=== PATIENT | male | born 1950 | race Caucasian/White ===

== ENCOUNTER 2018-07-05 12:25 | Emergency (ER) | payer MEDICARE ==
[~2018-07-05] VITALS: Ht 182.9 cm; Wt 88.5 kg
--- NOTE | 2018-07-05 12:59 | ED Back Pain ---
General Chief Complaint: Back Problems Stated Complaint: BACK PAIN Nursing Triage Note: HX OF BACK SX 4 YEARS AGO, CHRONIC BACK PAIN. STATES HAS BEEN TAKING IBUPROFEN WITH NO RELIEF, NOT TAKEN PRESCRIBED OXYCODONE FOR APPROX 10 DAYS, PAIN BETTER WHEN LYING DOWN AND INCREASED WHEN WALKING OR MOVING AROUND. LAST SEEN BACK DR APPROX ONE MONTH AGO. Nursing Sepsis Screen: No Definite Risk Source of Information: Patient Exam Limitations: No Limitations History of Present Illness Date Seen by Provider: Jul 05, 2018 Time Seen by Provider: 12:47 Initial Comments Patient is a 68-year-old male who presents to the emergency room with complaints of chronic back pain. He takes oxycodone for his pain that he is prescribed at [facility] and is under a pain contract. He reports moving up here from [place] recently and he has lost his naproxen that he takes along with his pain medication. Denies loss of bowel or bladder, or saddle paresthesia. Location: Lumbar Spine Timing/Duration: Other (chronic) Severity: Mild Pain/Injury Location: Back Associated Symptoms: No loss of bladder control, No loss of bowel control Allergies and Home Medications Allergies Coded Allergies: No Known Allergies (Verified Allergy, Unknown, 01/22/07) Home Medications Cyclobenzaprine HCl 10 Mg Tablet, 10 MG PO Q8H Prescribed by: NURA HOLLIDAY on 07/05/18 1320 Naproxen 500 Mg Tablet, 500 MG PO DAILY Prescribed by: NURA HOLLIDAY on 07/05/18 1320 Patient Home Medication List Home Medication List Reviewed: Yes Review of Systems Constitutional: see HPI; No chills, No fever Musculoskeletal: see HPI, back pain All Other Systems Reviewed Negative Unless Noted: Yes Past Snbydia-Psgqgw-Cwiexj Hx Past Med/Social Hx: Reviewed Nursing Past Med/Soc Hx Patient Social History Alcohol Use: Denies Use Recreational Drug Use: No Smoking Status: Never a Smoker Recent Foreign Travel: No Contact w/Someone Who Travel: No Recent Infectious Disease Expo: No Recent Hopitalizations: No Immunizations Up To Date Tetanus Booster (TDap): Unknown Seasonal Allergies Seasonal Allergies: No Past Medical History Surgeries: Yes Appendectomy, Gallbladder, Orthopedic Respiratory: No Cardiac: Yes (HEART CATH WITH NO INTERVENTIONS) Hypertension Reproductive Disorders: No Genitourinary: No Gastrointestinal: No Musculoskeletal: No Endocrine: Yes Diabetes, Non-Insulin dep HEENT: No Cancer: No Psychosocial: No Integumentary: No Blood Disorders: No Family Medical History Reviewed Nursing Family Hx Physical Exam Vital Signs Vital Signs - First Documented 07/05/18 07/05/18 12:30 13:33 Temp 97.6 Pulse 72 Resp 19 B/P (MAP) 159/75 (103) Pulse Ox 100 O2 Delivery Room Air Capillary Refill : Less Than 3 Seconds Height, Weight, BMI Height: 6'0" Weight: 195lbs. oz. 88.659188in; BMI Method:Stated General Appearance: No Apparent Distress, WD/WN Cardiovascular: Regular Rate, Rhythm, No Edema, No Gallop, No JVD, No Murmur, Normal Peripheral Pulses Respiratory: Chest Non Tender, Lungs Clear, Normal Breath Sounds, No Accessory Muscle Use, No Respiratory Distress, Accessory Muscle Use Back: Normal Inspection, Vertebral Tenderness (lumbar vertebral tenderness) Neurologic/Psychiatric: Alert, Oriented x3, No Motor/Sensory Deficits Skin: Normal Color, Warm/Dry Progress/Results/Core Measures Results/Orders My Orders Orders - MGNURA Ketorolac Injection (Toradol Injection) (07/05/18 13:00) Orphenadrine Injection (Norflex Injectio (07/05/18 13:00) Medications Given in ED Vital Signs/I&O 07/05/18 07/05/18 12:30 13:33 Temp 97.6 97.6 Pulse 72 72 Resp 19 19 B/P (MAP) 159/75 (103) 115/80 (103) Pulse Ox 100 O2 Delivery Room Air Blood Pressure Mean: 103 Progress Progress Note : Time: 13:00 Progress Note Patient seen and evaluated the patient. He is feeling much better after the administration of Toradol and Norflex. I will be prescribing him his naproxen. He agrees with plan to discharge. He is instructed to follow up with [facility] within 1 week. Return precautions were given. Departure Impression Primary Impression: Chronic back pain Disposition: HOME, SELF-CARE Condition: Stable/Unchanged Departure-Patient Inst. Decision time for Depature: 13:18 Referrals: NO,LOCAL PHYSICIAN (PCP) Primary Care Physician Patient Instructions: MANAGING YOUR CHRONIC PAIN, Low Back Pain (DC) Add. Discharge Instructions: Continue your home medications as previously prescribed. Follow-up with Dr. Pastor within 1 week for recheck. Return back to the emergency room for any worsening symptoms or concerns as needed. All discharge instructions reviewed with patient and/or family. Voiced understanding. Scripts Cyclobenzaprine HCl (Cyclobenzaprine HCl) 10 Mg Tablet 10 MG PO Q8H, #14 TAB Prov: NURA HOLLIDAY 07/05/18 Naproxen (Naprosyn) 500 Mg Tablet 500 MG PO DAILY, #10 TAB Prov: NURA HOLLIDAY 07/05/18 NURA HOLLIDAY Jul 05, 2018 12:59
[2018-07-05] MEDS: KETOROLAC 60 MG/2 ML VIAL IM ONE (13:02)
[2018-07-05] MEDS: ORPHENADRINE 60 MG/2 ML (NORFLEX) AMP IM ONE (13:02)
[2018-07-05] MEDS ORDERED: NAPR-1071 PO (13:20)
[2018-07-05] MEDS ORDERED: CYCL10TA9 PO (13:20)
[2018-07-05 13:33] VITALS: BP 115/80
== END 2018-07-05 13:35 | disposition home or self-care (01) ==
LOC: EDUNIT# 12:25 → ER 12:26
DX: M54.5 Low back pain (principal); G89.29 Other chronic pain; E11.9 Type 2 diabetes mellitus without complications; I10 Essential (primary) hypertension; Z90.89 Acquired absence of other organs
CPT/HCPCS: 96372; 99284

== ENCOUNTER 2018-12-25 13:20 | Emergency (ER) | payer MEDICARE ==
[~2018-12-25] VITALS: Ht 182.9 cm; Wt 94.3 kg
[~2018-12-25 13:20] MED LIST: CYCL10TA9 PO; NAPR-1071 PO
--- OUTSIDE RECORDS SUMMARY | 2018-12-25 13:26 | XMS REPORT ---
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 Active 47015301 Problem Benign prostatic hyperplasia with lower urinary tract symptoms N40.1 Active 312267586 Problem Essential hypertension I10 Active 54924101 Problem Lumbar radiculopathy M54.16 Active 917378812 Problem Prediabetes R73.03 Active 103355497 Problem Hesitancy of micturition R39.11 Active 7476373 ALLERGIES No Information ENCOUNTERS Encounter Location Date Diagnosis [place] [id number] [address] [id number] [place] [address] Aug, [place] [id number] [place] [address] 81668- [phone] Aug, [facility] [id number] [place] [address] 03873- 3128 Aug, [facility] [id number] [place] [address] 03682- 5009 Aug, [facility] [id number] [place] [address] 69591- 7555 14 Jul, 2018 Cervical paraspinal muscle spasm M62.838 [facility] [id number] [place] [address] 72217- 9346 04 Jul, 2018 Lumbar radiculopathy M54.16 [place] [id number] [place] [address] 09345- 6663 15 Jun, 2018 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 [place] [address] [facility] [id number] [address] 10 Jun, 2018 Lumbar radiculopathy M54.16 [place] [address] [place] [id number] [address] 10 Jun, 2018 Lumbar radiculopathy M54.16 ; Essential hypertension I10 ; Prediabetes R73.03 ; Gastroesophageal reflux disease, esophagitis presence not specified K21.9 ; Benign prostatic hyperplasia with lower urinary tract symptoms N40.1 and Hesitancy of micturition R39.11 [place] [address] [facility] [id number] [address] 13 May, 2018 Lumbar radiculopathy, chronic M54.16 IMMUNIZATIONS No Known Immunizations SOCIAL HISTORY Never Assessed REASON FOR VISIT Controlled Med Refill PLAN OF CARE VITAL SIGNS MEDICATIONS Unknown Medications RESULTS No Results PROCEDURES No Known procedures INSTRUCTIONS MEDICATIONS ADMINISTERED No Known Medications MEDICAL (GENERAL) HISTORY Type Description Date Medical History back surgery Surgical History back surgery 2000 Hospitalization History back surgery 2000
--- OUTSIDE RECORDS SUMMARY | 2018-12-25 13:26 | XMS REPORT ---
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 Active 93491399 Problem Benign prostatic hyperplasia with lower urinary tract symptoms N40.1 Active 299294910 Problem Essential hypertension I10 Active 66196998 Problem Lumbar radiculopathy M54.16 Active 386749601 Problem Prediabetes R73.03 Active 954558634 Problem Hesitancy of micturition R39.11 Active 8490696 ALLERGIES No Information ENCOUNTERS Encounter Location Date Diagnosis [place] [address] [place] [address] [id number] [place] [address]- 4097 Aug, [place] [id number] [place] [address] 60989- 1264 Aug, [facility] [id number] [place] [address] 89626- 7631 Aug, [facility] [id number] [place] [address] 24171- 4040 Aug, [facility] [id number] [place] [address] 90748- 1999 14 Jul, 2018 Cervical paraspinal muscle spasm M62.838 [facility] [id number] [place] [address] 19633- 0406 04 Jul, 2018 Lumbar radiculopathy M54.16 [place] [address] [place] [address] [id number] [place] [address] 96504- 6642 15 Jun, 2018 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 [place] [address] [facility] [id number] [address] 10 Jun, 2018 Lumbar radiculopathy M54.16 [place] [address] [id number] [address] 10 Jun, 2018 Lumbar radiculopathy M54.16 ; Essential hypertension I10 ; Prediabetes R73.03 ; Gastroesophageal reflux disease, esophagitis presence not specified K21.9 ; Benign prostatic hyperplasia with lower urinary tract symptoms N40.1 and Hesitancy of micturition R39.11 [place] [address] [facility] [id number], [place] [address] 13 May, 2018 Lumbar radiculopathy, chronic M54.16 IMMUNIZATIONS No Known Immunizations SOCIAL HISTORY Never Assessed REASON FOR VISIT Pt Medications PLAN OF CARE VITAL SIGNS MEDICATIONS Unknown Medications RESULTS No Results PROCEDURES No Known procedures INSTRUCTIONS MEDICATIONS ADMINISTERED No Known Medications MEDICAL (GENERAL) HISTORY Type Description Date Medical History back surgery Surgical History back surgery 2000 Hospitalization History back surgery 2000
--- OUTSIDE RECORDS SUMMARY | 2018-12-25 13:26 | XMS REPORT ---
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 Active 39378958 Problem Benign prostatic hyperplasia with lower urinary tract symptoms N40.1 Active 809601815 Problem Essential hypertension I10 Active 46166960 Problem Lumbar radiculopathy M54.16 Active 413835830 Problem Prediabetes R73.03 Active 184003801 Problem Hesitancy of micturition R39.11 Active 4410743 ALLERGIES No Known Allergies ENCOUNTERS Encounter Location Date Diagnosis [place] [address] [place] [address] 52038- 96[address] 14 Jul, 2018 Cervical paraspinal muscle spasm M62.838 [place] [address] [place] [address] 87033- 8245 04 Jul, 2018 Lumbar radiculopathy M54.16 [place] [address] [place] [address] 05892- 9463 15 Jun, 2018 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 [facility] [address] [address] 10 Jun, 2018 Lumbar radiculopathy M54.16 [place] [address] [place] [address] 42013- 9961 10 Jun, 2018 Lumbar radiculopathy M54.16 ; Essential hypertension I10 ; Prediabetes R73.03 ; Gastroesophageal reflux disease, esophagitis presence not specified K21.9 ; Benign prostatic hyperplasia with lower urinary tract symptoms N40.1 and Hesitancy of micturition R39.11 [facility] [address] [facility] [id number] [place] [address] May, Lumbar radiculopathy, chronic M54.16 IMMUNIZATIONS No Known Immunizations SOCIAL HISTORY Never Assessed REASON FOR VISIT foot pain Pt c/o Rt foot pain, feels he may have gout [facility] PLAN OF CARE VITAL SIGNS Weight 209.8 lbs 2018-06-20 Temperature 98.4 degrees Fahrenheit 2018-06-20 Heart Rate 82 bpm 2018-06-20 Respiratory Rate 18 2018-06-20 Blood pressure systolic 146 mmHg 2018-06-20 Blood pressure diastolic 84 mmHg 2018-06-20 MEDICATIONS Medication Instructions Dosage Frequency Start Date End Date Duration Status Allopurinol 300 MG Orally Once a day 1 tablet 24h Jun, Sep, 30 day(s) Active Tamsulosin HCl 0.4 MG Orally Once a day 1 capsule 24h Active Lyrica 200 mg Orally Three times a day 1 capsule 8h Active Pantoprazole Sodium 40 MG Orally Once a day 1 tablet 24h Active Lisinopril-Hydrochlorothiazide 20-12.5 MG Orally Once a day 1 tablet 24h Active Oxycodone HCl 15 mg Orally every 6 hrs 1 tablet 6h Jun, Active Tizanidine HCl 4 MG Orally Three times a day 1 tablet as needed 8h Active PredniSONE 20 mg Orally Once a day 2 tablets 24h Jun, Jun, 05 days Active Sucralfate 1 GM Orally Twice a day 1 tablet at bedtime on an empty stomach before meals 12h Active Metformin HCl 500 MG Orally Once a day 1 tablet with a meal 24h Active RESULTS No Results PROCEDURES No Known procedures INSTRUCTIONS MEDICATIONS ADMINISTERED No Known Medications MEDICAL (GENERAL) HISTORY Type Description Date Medical History back surgery Surgical History back surgery 2000 Hospitalization History back surgery 2000
--- OUTSIDE RECORDS SUMMARY | 2018-12-25 13:26 | XMS REPORT ---
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 Active 50169140 Problem Benign prostatic hyperplasia with lower urinary tract symptoms N40.1 Active 422278114 Problem Essential hypertension I10 Active 83726562 Problem Lumbar radiculopathy M54.16 Active 994554367 Problem Prediabetes R73.03 Active 197515891 Problem Hesitancy of micturition R39.11 Active 9889142 ALLERGIES No Information ENCOUNTERS Encounter Location Date Diagnosis [place] [address] [place] [address]2005- 29[address] 14 Jul, 2018 Cervical paraspinal muscle spasm M62.838 [place] [address] [place] [address] [id number] [place] [address] 64532- 3092 04 Jul, 2018 Lumbar radiculopathy M54.16 [place] [address] [place] [address] 07775- 8750 15 Jun, 2018 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 [facility] [address] [place] [address] 36947- 3862 10 Jun, 2018 Lumbar radiculopathy M54.16 [place] [address] [place] [address] 25301- 0163 10 Jun, 2018 Lumbar radiculopathy M54.16 ; Essential hypertension I10 ; Prediabetes R73.03 ; Gastroesophageal reflux disease, esophagitis presence not specified K21.9 ; Benign prostatic hyperplasia with lower urinary tract symptoms N40.1 and Hesitancy of micturition R39.11 [facility] [address] [facility] [id number] [place] [address] May, Lumbar radiculopathy, chronic M54.16 IMMUNIZATIONS No Known Immunizations SOCIAL HISTORY Never Assessed REASON FOR VISIT Controlled Med Refill 07/13 PLAN OF CARE VITAL SIGNS MEDICATIONS Medication Instructions Dosage Frequency Start Date End Date Duration Status Oxycodone HCl 15 mg Orally every 6 hrs 1 tablet 6h Jul, Active RESULTS No Results PROCEDURES No Known procedures INSTRUCTIONS MEDICATIONS ADMINISTERED No Known Medications MEDICAL (GENERAL) HISTORY Type Description Date Medical History back surgery Surgical History back surgery 2000 Hospitalization History back surgery 2000
--- OUTSIDE RECORDS SUMMARY | 2018-12-25 13:26 | XMS REPORT ---
Author Author TARIQ ROCHA [facility] Address [address] [place], [place] [id number] Care Team Providers Care Change Management Director Name Role Phone TARIQ ROCHA PCP TARIQ ROCHA PreferredProvider Allergies and Adverse Reactions Name Reaction Notes No known allergies Plan of Treatment Not available. Medications Active Name Start Date Estimated Completion Date SIG Comments Carafate 1 gram oral tablet take 1 tablet (1 gram) by oral route 4 times per day on an empty stomach 1 hour before meals and at bedtime tamsulosin 0.4 mg oral capsule take 2 capsules (0.8 mg) by oral route once daily 1/2 hour following the same meal each day for 30 days allopurinol 300 mg oral tablet take 1 tablet (300 mg) by oral route once daily for 30 days pantoprazole 40 mg oral tablet,delayed release (DR/EC) take 1 tablet ( 40 mg) by oral route once daily for 30 days sucralfate 1 gram oral tablet 11/27/2018 05/26/2019 One tablet daily lisinopril-hydrochlorothiazide 20-12.5 mg oral tablet 11/28/2018 take 1 tablet by oral route once daily Lyrica 200 mg oral capsule 11/29/2018 05/28/2019 take 1 capsule (200 mg) by oral route 2 times per day for 30 days citalopram 20 mg oral tablet 12/03/2018 03/03/2019 take 1 tablet (20 mg) by oral route once daily for 30 days Percocet 10-325 mg oral tablet 12/03/2018 01/02/2019 take 1 tablet by oral route every 6 hours as needed for 30 days Valtrex 1 gram oral tablet 12/03/2018 12/13/2018 take 1 tablet (1,000 mg) by oral route 3 times per day for 10 days tizanidine 4 mg oral tablet 12/04/2018 take 1 tablet (4 mg) by oral route every 8 hours as needed metformin 500 mg oral tablet 12/04/2018 01/03/2019 take 1 tablet (500 mg) by oral route 2 times per day with morning and evening meals for 30 days Name Start Date Expiration Date SIG Comments oxycodone 15 mg oral tablet 11/28/2018 12/08/2018 take 1 tablet (15 mg) by oral route every 6 hours for 10 days Problem List Description Status Onset Chronic midline low back pain without sciatica Active 11/19/2018 Other chronic pain Active 11/19/2018 Type 2 diabetes mellitus with diabetic polyneuropathy, without long-term current use of insulin Active 11/19/2018 Essential hypertension Active 11/19/2018 Pain management Active 11/19/2018 Mild episode of recurrent major depressive disorder Active 12/13/2018 Diverticulitis Active Vital Signs Date Time BP-Sys(mm[Hg] BP-Josselin(mm[Hg]) HR(bpm) RR(rpm) Temp WT HT HC BMI BSA BMI Percentile O2 Sat(%) 12/03/2018 1:45:00 PM 140 mmHg 82 mmHg 84 bpm 16 rpm 99.9 F 5.625 lbs 70 in 0.8071 kg/m 0.355 m 98 % 11/07/2018 10:00:00 PM 146 mmHg 86 mmHg 78 bpm 16 rpm 98.6 F 212 lbs 70 in 30.42 kg/m2 2.18 m2 98 % Social History Name Description Comments Uses seatbelts Alcohol Unknown Tobacco Unknown if ever smoked 11/16/2018 - History of Procedures Not available. Results Summary Not available. History Of Immunizations Not available. History of Past Illness Name Date of Onset Comments Hypertension Diabetes arthritis Anxiety Asthma Impotence indigestion Diverticulitis Chronic pain Chronic midline low back pain without sciatica 11/19/2018 Other chronic pain 11/19/2018 Type 2 diabetes mellitus with diabetic polyneuropathy, without long-term current use of insulin 11/19/2018 Essential hypertension 11/19/2018 Pain management 11/19/2018 Mild episode of recurrent major depressive disorder 12/13/2018 Low back pain Nov 16 2018 12:59PM Other chronic pain Nov 16 2018 12:59PM Other chronic pain Nov 16 2018 12:59PM Type 2 diabetes mellitus with diabetic polyneuropathy Nov 16 2018 12:59PM Essential hypertension Nov 16 2018 12:59PM GERD without esophagitis Nov 16 2018 12:59PM Back spasm Nov 16 2018 12:59PM Pain management contract discussed Nov 16 2018 12:59PM Pain management Nov 16 2018 12:59PM History of gout Nov 16 2018 12:59PM Moderate Chronic Recurrent Diverticulitis Dec 03 2018 1:45PM Abnormal CT of the abdomen Dec 03 2018 1:45PM Herpes zoster without complication Dec 03 2018 1:45PM Pain management Dec 03 2018 1:45PM Encounter for examination following treatment at hospital Dec 03 2018 1:45PM Mild episode of recurrent major depressive disorder Dec 03 2018 1:45PM Payers Insurance Name Company Name Plan Name Plan Number Policy Number Policy Group Number Start Date [employer] Ppo [id number] N/A History of Encounters Visit Date Visit Type Provider 12/03/2018 Office visit TARIQ HANNA 11/08/2018 Office visit TARIQ HANNA
--- OUTSIDE RECORDS SUMMARY | 2018-12-25 13:26 | XMS REPORT ---
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 Active 67453585 Problem Benign prostatic hyperplasia with lower urinary tract symptoms N40.1 Active 626845337 Problem Essential hypertension I10 Active 80070041 Problem Lumbar radiculopathy M54.16 Active 230650973 Problem Prediabetes R73.03 Active 116850529 Problem Hesitancy of micturition R39.11 Active 5024869 ALLERGIES No Information ENCOUNTERS Encounter Location Date Diagnosis [place] [id number] [place] [address] 67664- 6171 Aug, [place] [id number] [place] [address] 59074- 6746 Aug, [facility] [id number] [place] [address] 66523- 6244 Aug, [facility] [address] [id number] [place] [address] 49246- 4725 Aug, [facility] [id number] [place] [address] 93437- 5586 14 Jul, 2018 Cervical paraspinal muscle spasm M62.838 [facility] [id number] [place] [address] 58674- 7635 04 Jul, 2018 Lumbar radiculopathy M54.16 [place] [address] [id number] [place] [address] 30483- 5075 15 Jun, 2018 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 [place] [address] [facility] [id number] [address] 10 Jun, 2018 Lumbar radiculopathy M54.16 [place] [address] [place] [id number], [place] [address] 30[address] 10 Jun, 2018 Lumbar radiculopathy M54.16 ; Essential hypertension I10 ; Prediabetes R73.03 ; Gastroesophageal reflux disease, esophagitis presence not specified K21.9 ; Benign prostatic hyperplasia with lower urinary tract symptoms N40.1 and Hesitancy of micturition R39.11 [place] [address] [facility] [id number], [place] [address] 13 May, 2018 Lumbar radiculopathy, chronic M54.16 IMMUNIZATIONS No Known Immunizations SOCIAL HISTORY Never Assessed REASON FOR VISIT Lyrica PLAN OF CARE VITAL SIGNS MEDICATIONS Medication Instructions Dosage Frequency Start Date End Date Duration Status Lyrica 200 mg Orally Three times a day 1 capsule 8h 30 days Active RESULTS No Results PROCEDURES No Known procedures INSTRUCTIONS MEDICATIONS ADMINISTERED No Known Medications MEDICAL (GENERAL) HISTORY Type Description Date Medical History back surgery Surgical History back surgery 2000 Hospitalization History back surgery 2000
--- OUTSIDE RECORDS SUMMARY | 2018-12-25 13:26 | XMS REPORT ---
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 Active 57096620 Problem Benign prostatic hyperplasia with lower urinary tract symptoms N40.1 Active 727455758 Problem Essential hypertension I10 Active 53677409 Problem Lumbar radiculopathy M54.16 Active 845289576 Problem Prediabetes R73.03 Active 316367636 Problem Hesitancy of micturition R39.11 Active 6170485 ALLERGIES No Known Allergies ENCOUNTERS Encounter Location Date Diagnosis [place] [address] [address] 04 Jul, 2018 Lumbar radiculopathy M54.16 [place] [address] [place] [id number] [place] [address] 15 Jun, 2018 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 [place] [address] [place] [id number] [place] [address] 10 Jun, 2018 Lumbar radiculopathy M54.16 [place] [address] [place] [id number] [place] [address] 10 Jun, 2018 Lumbar radiculopathy M54.16 ; Essential hypertension I10 ; Prediabetes R73.03 ; Gastroesophageal reflux disease, esophagitis presence not specified K21.9 ; Benign prostatic hyperplasia with lower urinary tract symptoms N40.1 and Hesitancy of micturition R39.11 [place] [address] [place] [id number] [place] [address] May, Lumbar radiculopathy, chronic M54.16 IMMUNIZATIONS No Known Immunizations SOCIAL HISTORY Never Assessed REASON FOR VISIT Establish Care-SOM evans PLAN OF CARE Activity Details Follow Up 3 Months Reason: VITAL SIGNS Weight 207.9 lbs 2018-05-18 Temperature 98.7 degrees Fahrenheit 2018-05-18 Heart Rate 78 bpm 2018-05-18 Respiratory Rate 18 2018-05-18 Blood pressure systolic 142 mmHg 2018-05-18 Blood pressure diastolic 82 mmHg 2018-05-18 MEDICATIONS Medication Instructions Dosage Frequency Start Date End Date Duration Status Pantoprazole Sodium 40 MG Orally Once a day 1 tablet 24h Active Lisinopril-Hydrochlorothiazide 20-12.5 MG Orally Once a day 1 tablet 24h Active Tamsulosin HCl 0.4 MG Orally Once a day 1 capsule 24h Active Hydromorphone HCl 2 MG Orally every 4-6 hrs 1 tablet as needed Active Morphine Sulfate ER 15 mg Orally every 8 hrs 1 tablet 8h Active Lyrica 200 mg Orally Three times a day 1 capsule 8h Active Tizanidine HCl 4 MG Orally Three times a day 1 tablet as needed 8h Active Oxycodone HCl 15 mg Orally 3 times a day 1 tablet 8h May, Active RESULTS Name Result Date Reference Range URINE DRUG SCREEN (IN HOUSE) 2018-05-18 Lot # [id number] Exp date 07/2019 Control COCAINE negative AMPH negative MTD negative THC negative OPIATE negative BENZO negative PCP negative BAR negative OXY positive MAMP negative BUP negative MDMA negative TCA PROCEDURES Procedure Date Ordered Result Body Site DRUG TEST PRSMV DIR OPT OBS May 18, 2018 INSTRUCTIONS MEDICATIONS ADMINISTERED No Known Medications MEDICAL (GENERAL) HISTORY Type Description Date Medical History back surgery Surgical History back surgery 2000 Hospitalization History back surgery 2000
--- OUTSIDE RECORDS SUMMARY | 2018-12-25 13:26 | XMS REPORT ---
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 Active 10716522 Problem Benign prostatic hyperplasia with lower urinary tract symptoms N40.1 Active 782867459 Problem Essential hypertension I10 Active 74375979 Problem Lumbar radiculopathy M54.16 Active 974308164 Problem Prediabetes R73.03 Active 653584690 Problem Hesitancy of micturition R39.11 Active 7084063 ALLERGIES No Information ENCOUNTERS Encounter Location Date Diagnosis [place] [address] [place] [id number] [place] [address] Aug, [place] [address] [place] [id number] [place] [address]- 69[address] Aug, [facility] [address] [place] [id number] [place] [address] Aug, [facility] [address] [place] [id number] [place] [address] 17743- [address] Aug, [facility] [address] [place] [id number] [place] [address]23- 4056 14 Jul, 2018 Cervical paraspinal muscle spasm M62.838 [facility] [address] [place] [id number] [place] [address] 7[address]- 7[address] 04 Jul, 2018 Lumbar radiculopathy M54.16 [place] [address] [place] [id number] [place] [address]- [address] 15 Jun, 2018 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 [place] [address] [address] [facility] [id number] [address] 10 Jun, 2018 Lumbar radiculopathy M54.16 [place] [address] [address] [id number] [address] 10 Jun, 2018 Lumbar radiculopathy M54.16 ; Essential hypertension I10 ; Prediabetes R73.03 ; Gastroesophageal reflux disease, esophagitis presence not specified K21.9 ; Benign prostatic hyperplasia with lower urinary tract symptoms N40.1 and Hesitancy of micturition R39.11 [place] [address] [address] [facility] [id number] [address] 13 May, 2018 Lumbar radiculopathy, chronic M54.16 IMMUNIZATIONS No Known Immunizations SOCIAL HISTORY Never Assessed REASON FOR VISIT Refill request PLAN OF CARE VITAL SIGNS MEDICATIONS Medication Instructions Dosage Frequency Start Date End Date Duration Status Lisinopril-Hydrochlorothiazide 20-12.5 MG Orally Once a day 1 tablet 24h 30 days Active RESULTS No Results PROCEDURES No Known procedures INSTRUCTIONS MEDICATIONS ADMINISTERED No Known Medications MEDICAL (GENERAL) HISTORY Type Description Date Medical History back surgery Surgical History back surgery 2000 Hospitalization History back surgery 2000
--- OUTSIDE RECORDS SUMMARY | 2018-12-25 13:26 | XMS REPORT ---
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 Active 72377013 Problem Benign prostatic hyperplasia with lower urinary tract symptoms N40.1 Active 665436557 Problem Essential hypertension I10 Active 05366697 Problem Lumbar radiculopathy M54.16 Active 656046959 Problem Prediabetes R73.03 Active 422366728 Problem Hesitancy of micturition R39.11 Active 8348150 ALLERGIES No Information ENCOUNTERS Encounter Location Date Diagnosis [place] [address] [place] [id number] [place] [address] 14 Jul, 2018 Cervical paraspinal muscle spasm M62.838 [place] [address] [place] [id number] [place] [address] 8[address]- [address] 04 Jul, 2018 Lumbar radiculopathy M54.16 [place] [address] [place] [id number] [place] [address] 65471- [address] 15 Jun, 2018 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 [place] [address] [place] [id number] [place] [address]78- [address] 10 Jun, 2018 Lumbar radiculopathy M54.16 [place] [address] [place] [id number] [place] [address]54- [address] 10 Jun, 2018 Lumbar radiculopathy M54.16 ; Essential hypertension I10 ; Prediabetes R73.03 ; Gastroesophageal reflux disease, esophagitis presence not specified K21.9 ; Benign prostatic hyperplasia with lower urinary tract symptoms N40.1 and Hesitancy of micturition R39.11 [facility] [address] [facility] [id number] [place] [address] May, Lumbar radiculopathy, chronic M54.16 IMMUNIZATIONS No Known Immunizations SOCIAL HISTORY Never Assessed REASON FOR VISIT Controlled Med Refill PLAN OF CARE VITAL SIGNS MEDICATIONS Medication Instructions Dosage Frequency Start Date End Date Duration Status Oxycodone HCl 15 mg Orally every 6 hrs 1 tablet 6h Jun, Active RESULTS No Results PROCEDURES No Known procedures INSTRUCTIONS MEDICATIONS ADMINISTERED No Known Medications MEDICAL (GENERAL) HISTORY Type Description Date Medical History back surgery Surgical History back surgery 2000 Hospitalization History back surgery 2000
--- OUTSIDE RECORDS SUMMARY | 2018-12-25 13:26 | XMS REPORT ---
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 Active 31925364 Problem Benign prostatic hyperplasia with lower urinary tract symptoms N40.1 Active 442637161 Problem Essential hypertension I10 Active 13669407 Problem Lumbar radiculopathy M54.16 Active 111828715 Problem Prediabetes R73.03 Active 870766161 Problem Hesitancy of micturition R39.11 Active 3731956 ALLERGIES No Known Allergies ENCOUNTERS Encounter Location Date Diagnosis [place] [address] [place] [id number] [place] [address] Aug, [place] [address] [place] [id number] [place] [address] 06068- 5[address] 14 Jul, 2018 Cervical paraspinal muscle spasm M62.838 [place] [address] [place] [id number] [place] [address] 33347- [address] 04 Jul, 2018 Lumbar radiculopathy M54.16 [place] [address] [place] [id number] [place] [address] 13[address]- [address] 15 Jun, 2018 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 [facility] [address] [place] [id number] [place] [address] 12257- [address]75 Jun, Lumbar radiculopathy M54.16 [place] [address] [place] [id number] [place] [address] 73290- [address] Jun, Lumbar radiculopathy M54.16 ; Essential hypertension I10 ; Prediabetes R73.03 ; Gastroesophageal reflux disease, esophagitis presence not specified K21.9 ; Benign prostatic hyperplasia with lower urinary tract symptoms N40.1 and Hesitancy of micturition R39.11 [facility] [address] [facility] [id number] [address] 13 May, 2018 Lumbar radiculopathy, chronic M54.16 IMMUNIZATIONS No Known Immunizations SOCIAL HISTORY Never Assessed REASON FOR VISIT neck pain 3-4 days and getting worse with headaches Bubba KERANS, bit by several ticks doing yard work Bubba KEARNS PLAN OF CARE Activity Details Follow Up 3 Months Reason: VITAL SIGNS Weight 208.7 lbs 2018-07-20 Temperature 97.5 degrees Fahrenheit 2018-07-20 Heart Rate 80 bpm 2018-07-20 Respiratory Rate 18 2018-07-20 Blood pressure systolic 138 mmHg 2018-07-20 Blood pressure diastolic 84 mmHg 2018-07-20 MEDICATIONS Medication Instructions Dosage Frequency Start Date End Date Duration Status Oxycodone HCl 15 mg Orally every 6 hrs 1 tablet 6h 07 Jul, 2018 Active Tizanidine HCl 4 MG Orally Three times a day 1 tablet as needed 8h Active Sucralfate 1 GM Orally Twice a day 1 tablet at bedtime on an empty stomach before meals 12h Active Pantoprazole Sodium 40 MG Orally Once a day 1 tablet 24h Active Metformin HCl 500 MG Orally Once a day 1 tablet with a meal 24h Active Allopurinol 300 MG Orally Once a day 1 tablet 24h 15 Jun, 2018 13 Sep, 2018 30 day(s) Active Lisinopril-Hydrochlorothiazide 20-12.5 MG Orally Once a day 1 tablet 24h Active Naproxen 500 mg Orally 2 times a day 1 tablet with food or milk as needed 12h 14 Jul, 2018 Active Lyrica 200 mg Orally Three times a day 1 capsule 8h Active Tamsulosin HCl 0.4 MG Orally Once a day 1 capsule 24h Active RESULTS No Results PROCEDURES No Known procedures INSTRUCTIONS MEDICATIONS ADMINISTERED No Known Medications MEDICAL (GENERAL) HISTORY Type Description Date Medical History back surgery Surgical History back surgery 2000 Hospitalization History back surgery 2000
--- OUTSIDE RECORDS SUMMARY | 2018-12-25 13:27 | XMS REPORT ---
Author Author TARIQ ROCHA [facility] Address [address] [place], [place] [address] Care Team Providers Care Outside Cutter Hand Name Role Phone TARIQ ROCHA PCP TARIQ ROCHA PreferredProvider Allergies and Adverse Reactions Name Reaction Notes No known allergies Plan of Treatment Not available. Medications Active Name Start Date Estimated Completion Date SIG Comments oxycodone 15 mg oral tablet 11/08/2018 12/08/2018 take 1 tablet (15 mg) by oral route every 6 hours for 30 days Lyrica 100 mg oral capsule take 1 capsule (100 mg) by oral route 2 times per day Carafate 1 gram oral tablet take 1 tablet (1 gram) by oral route 4 times per day on an empty stomach 1 hour before meals and at bedtime tizanidine 4 mg oral tablet 11/14/2018 take 1 tablet (4 mg) by oral route every 8 hours as needed Problem List Description Status Onset Chronic midline low back pain without sciatica Active 11/19/2018 Other chronic pain Active 11/19/2018 Type 2 diabetes mellitus with diabetic polyneuropathy, without long-term current use of insulin Active 11/19/2018 Essential hypertension Active 11/19/2018 Pain management Active 11/19/2018 Vital Signs Date Time BP-Sys(mm[Hg] BP-Josselin(mm[Hg]) HR(bpm) RR(rpm) Temp WT HT HC BMI BSA BMI Percentile O2 Sat(%) 11/07/2018 10:00:00 PM 146 mmHg 86 mmHg 78 bpm 16 rpm 98.6 F 212 lbs 70 in 30.4185 kg/m 2.1793 m 98 % Social History Name Description Comments [...] 11/19/2018 Essential hypertension 11/19/2018 Pain management 11/19/2018 Low back pain Nov 16 2018 12:59PM [...] History of gout Nov 16 2018 12:59PM Payers Insurance Name Company Name Plan Name Plan Number Policy Number Policy Group Number Start Date [employer] Ppo [id number] N/A History of Encounters Visit Date Visit Type Provider 11/08/2018 Office visit TARIQ HANNA
--- OUTSIDE RECORDS SUMMARY | 2018-12-25 13:27 | XMS REPORT | Continuity of Care Document ---
Author Author [facility] Organization [facility] Address Unknown Phone Unavailable Allergies Active Description Code Type Severity Reaction Onset Reported/Identified Relationship to Patient Clinical Status Yes NO KNOWN DRUG ALLERGIES UNKNOWN NO KNOWN DRUG ALLERG Yes NKANo Known Allergies NKA Miscellaneous Allergy Unknown N/A 01/22/2007 Medications Medication Packaging Start Date Stop Date Route Dosage Sig KETOROLAC VIAL INJ 30 MG/CC (TORADOL VIAL) MG 12/02/2018 12/02/2018 ONCE&1555 ONDANSETRON VIAL INJ 4 MG/2CC (ZOFRAN 2CC VIAL) MG 12/02/2018 12/02/2018 ONCE&1555 NORMAL SALINE 1000CC IV BAG INJ 0.9 % (NS 1000CC IV BAG) ml 12/02/2018 12/17/2018 CONTINUOUSEVERY 0 Hour FENTANYL INJ 100 MCG/2CC VIAL MCG 12/02/2018 12/02/2018 ONCE&1650 CIPROFLOXACIN TAB 500 MG (CIPRO) MG 12/02/2018 12/02/2018 ONCE&1706 METRONIDAZOLE TAB 500 MG (FLAGYL) MG 12/02/2018 12/02/2018 ONCE&1706 FENTANYL INJ 100 MCG/2CC VIAL MCG 12/02/2018 12/02/2018 ONCE&1737 Problems Date Dx Coded Attending Type Code Diagnosis Diagnosed By 07/05/2018 NURA HOLLIDAY Ot E11.9 TYPE 2 DIABETES MELLITUS WITHOUT COMPLIC 07/05/2018 NURA HOLLIDAY Ot G89.29 OTHER CHRONIC PAIN 07/05/2018 NURA HOLLIDAY Ot I10 ESSENTIAL (PRIMARY) HYPERTENSION 07/05/2018 NURA HOLLIDAY Ot M54.5 LOW BACK PAIN 07/05/2018 NURA HOLLIDAY Ot Z90.89 ACQUIRED ABSENCE OF OTHER ORGANS 12/02/2018 MOOKIE DAVIS W 562.11 DIVERTICULITIS OF COLON WITHOUT MENTION OF HEMORRHAGE 12/02/2018 MOOKIE DAVIS W 789.07 ABDOMINAL PAIN, GENERALIZED 12/02/2018 MOOKIE DAVIS W K57.32 DVTRCLI OF LG INT W/O PERFORATION OR ABSCESS W/O BLEEDING 12/02/2018 MOOKIE DAVIS R10.84 GENERALIZED ABDOMINAL PAIN Procedures There is no data. Results Test Result Range Comprehensive Metabolic Panel - 12/02/18 15:47 Albumin 4.0 g/dL 3.6-5.1 ALP 78 U/L 35-130 ALT 36 U/L 6-45 Anion Gap 14 6-14 AST 31 U/L 2-40 BUN 25 mg/dL 5-25 Calcium 9.3 mg/dL 8.3-10.4 Chloride 104 mmol/L 95-114 CO2 25 mEq/L 22-33 Creat 1.00 mg/dL 0.50-1.50 eGFR 74 mL/min/1.73m2 >59 Globulin 2.7 g/dL 2.3-3.5 Glucose 94 mg/dL 70-110 Osmo 291 280-295 Potassium 3.8 mmol/L 3.5-5.3 Sodium 139 mmol/L 134-148 TBil 0.8 mg/dL 0.2-1.2 TP 6.7 g/dL 6.0-8.3 Amylase - 12/02/18 15:47 Amylase 113 U/L 20-100 Lipase - 12/02/18 15:47 Lipase 37 U/L 7-59 Encounters ACCT No. Visit Date/Time Discharge Status Pt. Type Provider Facility Loc./Unit Complaint [id number] 12/03/2018 14:31:06 12/03/2018 23:59:59 CLS Outpatient TARIQ ROCHA [id number] 11/08/2018 10:17:49 11/08/2018 23:59:59 CLS Outpatient TARIQ ROCHA [id number] 12/18/2018 15:35:00 12/18/2018 23:59:59 CLS Preadmit VIDAL ASHTON, KRISTIAN Tyler [facility] CARD HTN, LVH, MR, MIXED HYPERLIPIDEMIA [id number] 07/05/2018 12:26:00 07/05/2018 13:35:00 DIS Emergency CARMEN HOLLIDAYIS [facility] ER BACK PAIN [id number] 12/25/2018 13:22:00 ACT Emergency CHRISTOPHER ASHTON, BERNADINE Mohan [facility] ER WELTS ON PT BODY, SORENESS, STOAMCH PAIN [id number] 07/05/2018 13:39:00 Document Registration [id number] 12/02/2018 15:06:00 12/02/2018 18:05:00 [id number] 12/02/2018 15:55:16 Document Registration [id number] 05/18/2018 13:20:00 05/18/2018 23:59:59 CLS Outpatient DAKSHA ASHTON, [facility]
[2018-12-25 13:36] VITALS: BP 125/78
== END 2018-12-25 15:43 | disposition left against medical advice (07) ==
LOC: EDUNIT# 13:20 → ER 13:22
DX: R51 Headache (principal); B02.9 Zoster without complications; R10.9 Unspecified abdominal pain; R11.0 Nausea
CPT/HCPCS: 99281

== ENCOUNTER → 2019-01-17 | Outpatient (CLI) | payer MEDICARE | LOC: CARD 12:48 | PROVIDERS: ATTEND Internal Medicine Cardiovascular Disease | DX: I11.9 Hypertensive heart disease without heart failure (principal); I08.1 Rheumatic disorders of both mitral and tricuspid valves; E78.2 Mixed hyperlipidemia; R07.89 Other chest pain | CPT/HCPCS: 93306 ==

== ENCOUNTER 2019-11-12 15:18 | Emergency (ER) | payer MEDICARE ==
[~2019-11-12] VITALS: Ht 185 cm; Wt 95.5 kg
[2019-11-12 15:20] VITALS: BP 127/75
--- NOTE | 2019-11-12 15:34 | Diagnostic Imaging Report ---
INDICATION: New onset seizure. Confusion. Weakness. Suspect stroke. TECHNIQUE: Routine non contrast-enhanced axial images were obtained from the skull base to the vertex. Auto Exposure Controls were utilized during the CT exam to meet ALARA standards for radiation dose reduction. All CT scans use one or more of the following dose optimizing techniques: automated exposure control, MA and/or KvP adjustment based on patient size and exam type or iterative reconstruction. COMPARISON: None. FINDINGS: The ventricles and cortical sulci are diffusely prominent, compatible with age-related volume loss. There are confluent areas of abnormal, low attenuation in the periventricular white matter. This is consistent with small vessel ischemic changes; age-indeterminate. There is no prior study available for comparison. There is no midline shift or mass-effect. No acute intra-axial hemorrhage is seen. There are no abnormal areas of increased or decreased density to suggest acute hemorrhage or edema. No extra-axial masses or collections are present. The bony calvarium is intact. The visualized paranasal sinuses are unremarkable. The mastoid air cells are clear. IMPRESSION: 1. No acute intracranial abnormality. No CT evidence of mass, acute infarct or intracranial hemorrhage. 2. Small vessel ischemic changes in the periventricular and subcortical white matter; likely chronic. Results called to Dr. Chatman by Dr. Reed at 1530 hours on 11/12/2019. Dictated by: Dictated on workstation # [id number]
[2019-11-12 15:41] LABS: BASOPHILS # (AUTO) 0.1 10^3/uL (0.0-0.1); BASOPHILS % (AUTO) 0 % (0-10); EOSINOPHILS # (AUTO) 0.6 10^3/uL (0.0-0.3); EOSINOPHILS % (AUTO) 5 % (0-10); HEMATOCRIT 40 % (40-54); HEMOGLOBIN 13.3 G/DL (13.3-17.7); LYMPHOCYTES # (AUTO) 6.4 X 10^3 (1.0-4.0); LYMPHOCYTES % (AUTO) 45 % (12-44); MEAN CORPUSCULAR HEMOGLOBIN 31 PG (25-34); MEAN CORPUSCULAR HGB CONC 33 G/DL (32-36); MEAN CORPUSCULAR VOLUME 94 FL (80-99); MEAN PLATELET VOLUME 11.5 FL (7.4-10.4); MONOCYTES # (AUTO) 1.4 X 10^3 (0.0-1.0); MONOCYTES % (AUTO) 10 % (0-12); NEUTROPHILS # (AUTO) 5.7 X 10^3 (1.8-7.8); NEUTROPHILS % (AUTO) 40 % (42-75); PLATELET COUNT 235 10^3/uL (130-400); WHITE BLOOD COUNT 14.2 10^3/uL (4.3-11.0)
[2019-11-12 16:03] LABS: ALANINE AMINOTRANSFERASE 31 U/L (0-55); ALBUMIN 4.1 GM/DL (3.2-4.5); ALKALINE PHOSPHATASE 108 U/L (40-136); BILIRUBIN,TOTAL 0.4 MG/DL (0.1-1.0); BUN/CREATININE RATIO 15; CARBON DIOXIDE 15 MMOL/L (21-32); CHLORIDE 103 MMOL/L (98-107); CREATININE SERUM 1.02 MG/DL (0.60-1.30); GFR ESTIMATED > 60; GLUCOSE 64 MG/DL (70-105); POTASSIUM 3.2 MMOL/L (3.6-5.0); SODIUM 141 MMOL/L (135-145); TOTAL PROTEIN 7.5 GM/DL (6.4-8.2)
--- NOTE | 2019-11-12 16:03 | ED Neurological Problem ---
General Stated Complaint: SEIZURE Source: patient, family, EMS, spouse Exam Limitations: no limitations History of Present Illness Date Seen by Provider: Nov 12, 2019 Time Seen by Provider: 15:00 Initial Comments Assume care of the patient shift change, 1500. The patient presents to ER by EMS with chief complaint that he was at [employer] getting something for dinner with his and he felt before and had full body convulsions/seizures. Has no history of seizures. EMS reports blood sugar was 60 when they arrived and started some D10 which brought his blood sugar up over 100. Seizure activity lasted about 3 minutes. He was postictal and had bitten his upper lip. Lately he has not been feeling well and had a cold, left ear pressure nasal congestion for the past few days and noticed the blood sugars of been very labile he says he's had several hypoglycemic episodes down into the 50s and 60s where he would become sweaty, shaky feeling like his about to pass out. Today he skipped a meal. He does not take insulin or so for your ears but he does take metformin. He had a similar syncopal episode in May where he was transported to [facility] and spent the day and they did several tests and could not find any definitive reason why he was hypoglycemic. He is known to Dr. Valentin and has had a heart catheter which was told was normal but does not have any known coronary disease, stents, heart attack. He has hypotension diabetes and does not smoke or have hyperlipidemia. He denies any chest pain coughing shortness of breath sore throat fevers chills dysuria. He denies alcohol usage. Allergies and Home Medications Allergies Coded Allergies: No Known Allergies (Verified Allergy, Unknown, 01/22/07) Home Medications Cyclobenzaprine HCl 10 Mg Tablet, 10 MG PO Q8H Prescribed by: NURA HOLLIDAY on 07/05/18 1320 Naproxen 500 Mg Tablet, 500 MG PO DAILY Prescribed by: NURA HOLLIDAY on 07/05/18 1320 Patient Home Medication List Home Medication List Reviewed: Yes Review of Systems Review of Systems Constitutional: see HPI; No chills; diaphoresis; No fever; malaise Eyes: Denies Blindness, Denies Blurred Vision Ears, Nose, Mouth, Throat: denies ear pain, denies ear discharge Respiratory: No cough, No short of breath Cardiovascular: No chest pain, No palpitations Gastrointestinal: No abdominal pain, No nausea, No vomiting Genitourinary: No discharge, No dysuria Musculoskeletal: No back pain, No joint pain Skin: No pruritus, No rash Psychiatric/Neurological: Denies Anxiety, Denies Depressed All Other Systems Reviewed Negative Unless Noted: Yes Past Wtaatjw-Ueroxq-Mhlypz Hx Patient Social History Alcohol Use: Denies Use Recreational Drug Use: No Smoking Status: Never a Smoker Recent Foreign Travel: No Contact w/Someone Who Travel: No Recent Hopitalizations: No Immunizations Up To Date Tetanus Booster (TDap): Unknown Seasonal Allergies Seasonal Allergies: No Past Medical History Surgeries: Yes Appendectomy, Gallbladder, Orthopedic Respiratory: No Cardiac: Yes (HEART CATH WITH NO INTERVENTIONS) Hypertension Reproductive Disorders: No Genitourinary: No Gastrointestinal: No Musculoskeletal: No Endocrine: Yes Diabetes, Non-Insulin dep HEENT: No Cancer: No Psychosocial: No Integumentary: No Blood Disorders: No Physical Exam Vital Signs Vital Signs - First Documented 11/12/19 15:20 Pulse 75 Resp 10 B/P (MAP) 127/75 (92) Pulse Ox 95 O2 Delivery Room Air Capillary Refill : Height, Weight, BMI Height: 6'0" Weight: 208lbs. oz. 94.190980ks; BMI Method:Stated General Appearance: WD/WN, no apparent distress HEENT: PERRL/EOMI, normal ENT inspection, TM abnormal (R) (clear mucoid effusion without injection, erythema, loss of tympanic membrane landmarks.), TM abnormal (L), other (poor dentition with small ecchymoses upper lip. No laceration or bleeding.) Neck: non-tender, full range of motion, supple, normal inspection Respiratory: lungs clear, normal breath sounds, no respiratory distress, no accessory muscle use Cardiovascular: normal peripheral pulses, regular rate, rhythm Peripheral Pulses: 2+ Dorsalis Pedis (R), 2+ Left Dors-Pedis (L), 2+ Radial Pulses (R), 2+ Radial Pulses (L) Gastrointestinal: normal bowel sounds, non tender, soft, no organomegaly Extremities: normal range of motion, non-tender, normal inspection Neurologic/Psychiatric: alert, normal mood/affect, oriented x 3 Crainal Nerves: normal hearing (mildly hard of hearing), normal speech, PERRL Coordination/Gait: normal finger to nose Motor/Sensory: no motor deficit, no sensory deficit, no pronator drift Skin: normal color, warm/dry Stroke Onset of Symptoms Date of Onset of Symptoms: Nov 12, 2019 Time of Symptom Onset: 14:30 Onset of Symptoms: Yes NIH Stroke Scale Assessment Select: Initial Level of Consciousness: 0=Alert (0), Level of Consciousness- Questions: 0=Answers both month/age (0), LOC Commands: 0=Performs both tasks (0), Gaze: Normal (0), Visual Mitchell: 0=No visual loss (0), Facial Movement (Facial Paresis): 0=Normal symmetrical mnt (0), Motor Function-Arms Right: 0=No drift (0), Motor Function-Arms Left: 0=No drift (0), Motor Function-Legs Right: 0=No drift (0), Motor Function-Legs Left: 0=No drift (0), Limb Ataxia: 0=Absent (0), Sensory: 0=Normal:no loss (0), Best Language: 0=No aphasia (0), Dysarthria: 0=Normal (0), Extinction & Inattention: 0=No abnormality (0), Total: 0 Stroke Thrombolytic Exclusion Age 18 or Over: Yes Acute intenal hemorrhage: No History of CVA: No Uncontrolled Coagulation Defec: No Intracranial Hemorrhage: No Severe Hypertension: No GI or Bleed: No Subarachnoid Hemorrhage: No Intracranial Neoplasm/Aneurysm: No Oral Anticoagulants: No Surgery or Trauma: No Puncture of Non-Compressible V: No Recent CPR: No Diabetic Hemorrhagic Retinopat: No Organ Biopsy: No Recent Obstetric Delivery: No Glucose: Yes (64) Significant Hepatic Dysfunctio: No NIH Stoke Scale >22: No Bacterial Endocarditis: No Pericarditis: No Improving Symptoms: Yes Platelets: No TPA Contraindication: Yes (cbg low, improving with d10.) Progress/Results/Core Measures Results/Orders Lab Results Laboratory Tests Test 11/12/19 15:24 11/12/19 15:37 11/12/19 15:38 11/12/19 16:42 Range/Units White Blood Count 14.2 H 4.3-11.0 10^3/uL Red Blood Count 4.31 L 4.35-5.85 10^6/uL Hemoglobin 13.3 13.3-17.7 G/DL Hematocrit 40 40-54 % Mean Corpuscular Volume 94 80-99 FL Mean Corpuscular Hemoglobin 31 25-34 PG Mean Corpuscular Hemoglobin Concent 33 32-36 G/DL Red Cell Distribution Width 14.0 10.0-14.5 % Platelet Count 235 130-400 10^3/uL Mean Platelet Volume 11.5 H 7.4-10.4 FL Neutrophils (%) (Auto) 40 L 42-75 % Lymphocytes (%) (Auto) 45 H 12-44 % Monocytes (%) (Auto) 10 0-12 % Eosinophils (%) (Auto) 5 0-10 % Basophils (%) (Auto) 0 0-10 % Neutrophils # (Auto) 5.7 1.8-7.8 X 10^3 Lymphocytes # (Auto) 6.4 H 1.0-4.0 X 10^3 Monocytes # (Auto) 1.4 H 0.0-1.0 X 10^3 Eosinophils # (Auto) 0.6 H 0.0-0.3 10^3/uL Basophils # (Auto) 0.1 0.0-0.1 10^3/uL Neutrophils % (Manual) 42 % Lymphocytes % (Manual) 45 % Monocytes % (Manual) 10 % Eosinophils % (Manual) 3 % Basophils % (Manual) 0 % Blood Morphology Comment NORMAL Sodium Level 141 135-145 MMOL/L Potassium Level 3.2 L 3.6-5.0 MMOL/L Chloride Level 103 98-107 MMOL/L Carbon Dioxide Level 15 L 21-32 MMOL/L Anion Gap 23 H 5-14 MMOL/L Blood Urea Nitrogen 15 7-18 MG/DL Creatinine 1.02 0.60-1.30 MG/DL Estimat Glomerular Filtration Rate > 60 BUN/Creatinine Ratio 15 Glucose Level 64 L 70-105 MG/DL Calcium Level 9.0 8.5-10.1 MG/DL Corrected Calcium 8.9 8.5-10.1 MG/DL Total Bilirubin 0.4 0.1-1.0 MG/DL Aspartate Amino Transf (AST/SGOT) 31 5-34 U/L Alanine Aminotransferase (ALT/SGPT) 31 0-55 U/L Alkaline Phosphatase 108 40-136 U/L Troponin I < 0.028 <0.028 NG/ML Total Protein 7.5 6.4-8.2 GM/DL Albumin 4.1 3.2-4.5 GM/DL Glucometer 164 H 173 H 70-110 MG/DL Prothrombin Time 14.8 H 12.2-14.7 SEC INR Comment 1.1 0.8-1.4 Activated Partial Thromboplast Time 27 24-35 SEC D-Dimer 1.09 H 0.00-0.49 UG/ML My Orders Orders - HAN CASTRO Accucheck Stat ONCE (11/12/19 16:45) Vital Signs/I&O 11/12/19 15:20 Pulse 75 Resp 10 B/P (MAP) 127/75 (92) Pulse Ox 95 O2 Delivery Room Air Progress Progress Note #1: Time: 16:10 Progress Note Patient had seizure secondary to hypoglycemia. As D10 was given his symptoms improve. We will conclude the 500 cc of D10 initiated by EMS and recheck blood sugar at 1630. He does appear to have a viral cold. We'll look for any other reasons for hypoglycemia. He does not seem to be on any sulfonylureas, insulin or other medicines that would contribute to hypoglycemia and seems like in the past when he gets ill he has very labile blood sugars. Appropriate counseling was given to the patient and his on blood sugar management, labile sugars and hypoglycemia management. Progress Note #2: Time: 17:10 Progress Note Before we were able to indicate labs and imaging to the patient he decided to go AGAINST MEDICAL ADVICE and follow-up tomorrow with his primary care doctor. This does appear to be a hypoglycemic episode. We have already discussed this with him as well as how to manage his hypoglycemia and labile blood sugars. May be from his viral upper respiratory tract infection. The patient did not endorse dysuria and did not produce a urine sample. He had been here less than 2 hours. Diagnostic Imaging Diagonstic Imaging: CT Plain Films/CT/US/NM/MRI: head Comments NAME: [facility] REC#: [id number] PT STATUS: REG ER : 1950 PHYSICIAN: BERNADINE WHITE MD ADMIT DATE: 11/12/19/ER Draft Date of Exam:11/12/19 CT HEAD WO-R/O STROKE INDICATION: New onset seizure. Confusion. Weakness. Suspect stroke. TECHNIQUE: Routine non contrast-enhanced axial images were obtained from the skull base to the vertex. Auto Exposure Controls were utilized during the CT exam to meet ALARA standards for radiation dose reduction. All CT scans use one or more of the following dose optimizing techniques: automated exposure control, MA and/or KvP adjustment based on patient size and exam type or iterative reconstruction. COMPARISON: None. FINDINGS: The ventricles and cortical sulci are diffusely prominent, compatible with age-related volume loss. There are confluent areas of abnormal, low attenuation in the periventricular white matter. This is consistent with small vessel ischemic changes; age-indeterminate. There is no prior study available for comparison. There is no midline shift or mass-effect. No acute intra-axial hemorrhage is seen. There are no abnormal areas of increased or decreased density to suggest acute hemorrhage or edema. No extra-axial masses or collections are present. The bony calvarium is intact. The visualized paranasal sinuses are unremarkable. The mastoid air cells are clear. IMPRESSION: 1. No acute intracranial abnormality. No CT evidence of mass, acute infarct or intracranial hemorrhage. 2. Small vessel ischemic changes in the periventricular and subcortical white matter; likely chronic. Results called to Dr. White by Dr. Stoll at 1530 hours on 11/12/2019. Dictated on workstation # [id number] Dict: 11/12/19 1529 Trans: 11/12/19 1534 [facility] [id number] Interpreted by: MANI STOLL MD Electronically signed by: Reviewed: Reviewed by Me Plain Films/CT/US/NM/MRI: chest (1v) Comments [facility] [place] [place] NAME: [facility] REC#: [id number] PT STATUS: REG ER : 1950 PHYSICIAN: BERNADINE WHITE MD ADMIT DATE: 11/12/19/ER Signed Date of Exam:11/12/19 CHEST 1 VIEW, AP/PA ONLY INDICATION: Seizure. COMPARISON: 05/28/2007. FINDINGS: Portable chest. The heart is upper limits of normal. The lungs are well aerated and clear. No evidence of pulmonary edema. No hilar adenopathy. No pneumothorax or pleural effusion. No bony abnormalities. IMPRESSION: No acute abnormalities. Dictated by: Dictated on workstation # [id number] Dict: 11/12/19 1623 Trans: 11/12/19 1657 [id number] Interpreted by: LIANG RUDD MD Electronically signed by: LIANG RUDD MD 11/12/19 1657 Reviewed: Reviewed by Me Departure Impression Primary Impression: Hypoglycemia Additional Impressions: Observed seizure-like activity Viral upper respiratory tract infection Mucoid otitis media of left ear with effusion Disposition: AGAINST MEDICAL ADVICE Condition: Against Medical Advice Departure-Patient Inst. Decision time for Depature: 19:18 Referrals: NO,LOCAL PHYSICIAN (PCP/Family) Primary Care Physician Patient Instructions: Serous Otitis Media (DC), Low Blood Sugar in People With Diabetes, Viral Upper Respiratory Infection, Adult (DC) Add. Discharge Instructions: Plan close follow-up with your primary care provider. If you begin to feel you have low blood sugar, sweaty, clammy, cold, headache or other worrisome symptoms then please check her blood sugar immediately. If it is below 80 and you should drink something with sugar or eat something with carbohydrates and protein and continue to monitor. If you're unable to get it, he may return to the ER. HAN CASTRO Nov 12, 2019 16:03
[2019-11-12 16:09] LABS: FIBRIN DEGRADATION PRODUCTS 1.09 UG/ML (0.00-0.49); INR 1.1 (0.8-1.4); PROTHROMBIN TIME PATIENT 14.8 SEC (12.2-14.7)
[2019-11-12 16:10] LABS: BASOPHILS % (MANUAL) 0 %; EOSINOPHILS % (MANUAL) 3 %; LYMPHOCYTES % (MANUAL) 45 %; MONOCYTES % (MANUAL) 10 %; NEUTROPHILS % (MANUAL) 42 %; RBC MORPH NORMAL
--- NOTE | 2019-11-12 16:27 | Diagnostic Imaging Report ---
INDICATION: Seizure. COMPARISON: 05/28/2007. FINDINGS: Portable chest. The heart is upper limits of normal. The lungs are well aerated and clear. No evidence of pulmonary edema. No hilar adenopathy. No pneumothorax or pleural effusion. No bony abnormalities. IMPRESSION: No acute abnormalities. Dictated by: Dictated on workstation # [id number]
== END 2019-11-12 17:21 | disposition left against medical advice (07) ==
LOC: EDUNIT# 15:18 → ER 15:19
DX: E11.649 Type 2 diabetes mellitus with hypoglycemia without coma (principal); R29.818 Other symptoms and signs involving the nervous system; J06.9 Acute upper respiratory infection, unspecified; H65.92 Unspecified nonsuppurative otitis media, left ear; I10 Essential (primary) hypertension; Z95.9 Presence of cardiac and vascular implant and graft, unspecified; Z90.49 Acquired absence of other specified parts of digestive tract
CPT/HCPCS: 36415; 70450; 71045; 80053; 82962; 84484; 85007; 85027; 85379; 85610; 85730; 93041

== ENCOUNTER → 2020-12-18 | Outpatient (CLI) | payer MEDICARE ==
[~2020-12-18] MED LIST changes: +CATHETER FLUSH 10 ML SYR IV PRN; +HOLD METFORMIN - RECEIVED CONTRAST 20 ML VIAL IV SCH; +IOHEXOL 350 MG/ML 100 ML (OMNIPAQUE 350) VIAL IV ONE; +NS 100 ML (IVPB) BAG IV ONE
[2020-12-18 13:02] LABS: BASOPHILS % (AUTO) 0 % (0-10); EOSINOPHILS # (AUTO) 0.2 10^3/uL (0.0-0.3); EOSINOPHILS % (AUTO) 2 % (0-10); HEMATOCRIT 37 % (40-54); HEMOGLOBIN 11.9 g/dL (13.3-17.7); LYMPHOCYTES # (AUTO) 2.2 10^3/uL (1.0-4.0); LYMPHOCYTES % (AUTO) 22 % (12-44); MEAN CORPUSCULAR HEMOGLOBIN 32 pg (25-34); MEAN CORPUSCULAR HGB CONC 33 g/dL (32-36); MEAN CORPUSCULAR VOLUME 100 fL (80-99); MONOCYTES % (AUTO) 10 % (0-12); NEUTROPHILS # (AUTO) 6.7 10^3/uL (1.8-7.8); NEUTROPHILS % (AUTO) 66 % (42-75); PLATELET COUNT 191 10^3/uL (130-400); WHITE BLOOD COUNT 10.2 10^3/uL (4.3-11.0)
[2020-12-18 13:32] LABS: ALANINE AMINOTRANSFERASE 21 U/L (0-55); ALBUMIN 3.9 GM/DL (3.2-4.5); ALKALINE PHOSPHATASE 99 U/L (40-136); BILIRUBIN,TOTAL 0.3 MG/DL (0.1-1.0); BUN/CREATININE RATIO 31; CALCIUM 8.9 MG/DL (8.5-10.1); CARBON DIOXIDE 23 MMOL/L (21-32); CHLORIDE 110 MMOL/L (98-107); CREATININE SERUM 1.18 MG/DL (0.60-1.30); GFR ESTIMATED > 60; GLUCOSE 117 MG/DL (70-105); POTASSIUM 4.3 MMOL/L (3.6-5.0); SODIUM 143 MMOL/L (135-145)
--- NOTE | 2020-12-18 14:06 | Diagnostic Imaging Report ---
EXAMINATION: CT Abdomen Pelvis with and without intravenous contrast. TECHNIQUE: Precontrast acquisitions were acquired through the abdomen and pelvis. Multiple contiguous axial images were obtained through the abdomen and pelvis after the administration of intravenous contrast. All CT scans use one or more of the following dose optimizing techniques: automated exposure control, MA and/or KvP adjustment based on a patient size and exam type, or iterative reconstruction. HISTORY: ABD PAIN,BLOODY STOOLS COMPARISON: None available. FINDINGS: Lung bases: Reticular opacities within the lung peripheries which may represent scarring or fibrosis. The lung bases otherwise clear. Solid organs: The liver is normal without focal lesion. There is no biliary ductal dilation. The gallbladder is surgically absent. Pancreas is normal. Spleen is normal. Adrenal glands are normal. The kidneys are normal without visualized calculus or hydronephrosis. Bowel: The stomach and small bowel are normal without obstruction. There is a moderate amount of stool throughout the colon. No findings of acute appendicitis. Peritoneum: There is no intraperitoneal free fluid or free air. No suspicious lymphadenopathy. Vasculature: Calcification of the aorta without aneurysm. Musculoskeletal: Degenerative changes of the spine without suspicious osseous lesion or compression fracture. Pelvis: The prostate gland is enlarged. The urinary bladder is normal. IMPRESSION: 1. No acute abnormality in the abdomen or pelvis. Dictated by: Dictated on workstation # [id number]
== END ==
LOC: RAD 14:45
PROVIDERS: ATTEND Surgery
DX: K92.1 Melena (principal); R10.9 Unspecified abdominal pain
CPT/HCPCS: 36415; 74178; 80053; 85025

== ENCOUNTER 2020-12-27 15:06 | Emergency (ER) | payer MEDICARE ==
[~2020-12-27] VITALS: Ht 182 cm; Wt 87.0 kg
[~2020-12-27 15:06] MED LIST changes: -CATHETER FLUSH 10 ML SYR IV PRN; -HOLD METFORMIN - RECEIVED CONTRAST 20 ML VIAL IV SCH; -IOHEXOL 350 MG/ML 100 ML (OMNIPAQUE 350) VIAL IV ONE; -NS 100 ML (IVPB) BAG IV ONE
[2020-12-27] MEDS ORDERED: ONDANSETRON 4 MG/2 ML (SDV) Z0FRAN IVP ONE (15:45)
[2020-12-27] MEDS ORDERED: LACTATED RINGERS 1,000 ML IV ONE (15:45)
[2020-12-27 15:49] LABS: BILIRUBIN,URINE NEGATIVE (NEGATIVE); CLARITY,URINE SL CLOUDY; COLOR,URINE YELLOW; GLUCOSE, URINE (UA) NEGATIVE (NEGATIVE); KETONES,URINE 2+ (NEGATIVE); LEUKOCYTE ESTERASE ,URINE NEGATIVE (NEGATIVE); NITRITE,URINE NEGATIVE (NEGATIVE); PH,URINE 6.5 (5-9); PROTEIN,URINE TRACE (NEGATIVE)
[2020-12-27 15:53] LABS: CHLORIDE 103 MMOL/L (98-107); POTASSIUM 4.6 MMOL/L (3.6-5.0); SODIUM 138 MMOL/L (135-145)
[2020-12-27 15:54] LABS: BASOPHILS % (AUTO) 0 % (0-10); CALCIUM 9.2 MG/DL (8.5-10.1); EOSINOPHILS % (AUTO) 0 % (0-10); HEMATOCRIT 41 % (40-54); HEMOGLOBIN 13.8 g/dL (13.3-17.7); LYMPHOCYTES # (AUTO) 1.2 10^3/uL (1.0-4.0); LYMPHOCYTES % (AUTO) 12 % (12-44); MEAN CORPUSCULAR HEMOGLOBIN 32 pg (25-34); MEAN CORPUSCULAR HGB CONC 34 g/dL (32-36); MEAN CORPUSCULAR VOLUME 94 fL (80-99); MEAN PLATELET VOLUME 11.3 fL (9.0-12.2); MONOCYTES # (AUTO) 0.5 10^3/uL (0.0-1.0); MONOCYTES % (AUTO) 5 % (0-12); NEUTROPHILS # (AUTO) 8.2 10^3/uL (1.8-7.8); NEUTROPHILS % (AUTO) 82 % (42-75); PLATELET COUNT 268 10^3/uL (130-400); WHITE BLOOD COUNT 9.9 10^3/uL (4.3-11.0)
[2020-12-27 15:55] LABS: GLUCOSE 128 MG/DL (70-105); TOTAL PROTEIN 7.8 GM/DL (6.4-8.2)
[2020-12-27 15:56] LABS: CARBON DIOXIDE 20 MMOL/L (21-32)
[2020-12-27 15:57] LABS: BILIRUBIN,TOTAL 0.6 MG/DL (0.1-1.0)
[2020-12-27 15:59] LABS: ALKALINE PHOSPHATASE 73 U/L (40-136); CREATININE SERUM 0.87 MG/DL (0.60-1.30); GFR ESTIMATED > 60
[2020-12-27 16:00] LABS: BUN/CREATININE RATIO 25
[2020-12-27] MEDS ORDERED: HYDROmorphone 2 MG/ML VIAL (DILAUDID) IV ONE (16:00)
[2020-12-27] MEDS ORDERED: ANTACID SUSP 30 ML UDC (MYLANTA) PO ONE (16:00)
[2020-12-27] MEDS ORDERED: LIDOCAINE 2% VISCOUS 15 ML UDC PO ONE (16:00)
[2020-12-27 16:02] LABS: ALANINE AMINOTRANSFERASE 32 U/L (0-55); MAGNESIUM 1.5 MG/DL (1.6-2.4)
[2020-12-27 16:03] LABS: LIPASE 11 U/L (8-78)
--- NOTE | 2020-12-27 16:03 | ED Abdominal Pain ---
General Chief Complaint: Abdominal/GI Problems Stated Complaint: ABD PAIN, HTN Nursing Triage Note: ARRIVED VIA AMB WITH COMPLAINTS OF UMBILICAL ABD PAIN FOR A WHILE ET HAD A CT LAST WEEK BUT DOES NOT KNOW THE RESULTS. ANAY RIVERA. Sepsis Screen: No Definite Risk Source of Information: Patient Exam Limitations: No Limitations (MARTA GRIJALVA) History of Present Illness Date Seen by Provider: Dec 27, 2020 Time Seen by Provider: 15:30 Initial Comments Pt here for abdominal pain that started about 10 days ago for he had a CT abdomen/pelvis done at that time. He states he saw Dr. Rivera on Monday for the pain, but states he did not know about the CT results. He states the pain has worsened and he had some vomiting this morning prompting his visit today. He reports getting an increased dose of pain medication that has not really helped along with an antibiotic. He states that since the antibiotic he has had increased loose stools. He denies any fever/chills, blood in the stool/urine, or burning with urination. He has a history of a hiatal hernia, that was unable to to be fully repaired in the past. He also states he has had increased HTN recently for which he take Lisinopril and Clonidine. He states he last took his medication for his BP just before he came to the ER. He took his pain medication earlier this morning, but states he vomited it up afterwards. He does report using marijuana gummies recently 2-3 times a week, but states he ahs not had them for about 1.5-2 week. Timing/Duration: 1 Week Severity/Quality: Moderate Location: LLQ, Epigastric Activities at Onset: Rest Modifying Factors: Improves With Lying down; Worsens With Movement, Worsens With Palpation, Worsens With Vomiting Associated Symptoms: No Chest Pain, No Fever/Chills, No Headache; Nausea/Vomiting (MARTA GRIJALVA) Timing/Duration: 1 Week Severity/Quality: Moderate, Aching, Cramping Location: Epigastric Radiation: No Radiation Modifying Factors: Worsens With Eating, Worsens With Lying down Associated Symptoms: No Chest Pain, No Fever/Chills; Nausea/Vomiting; No Weakness (BERNADINE WHITE MD) Allergies and Home Medications Allergies Coded Allergies: NKANo Known Allergies (Verified Allergy, Unknown, 01/22/07) Home Medications Cyclobenzaprine HCl 10 Mg Tablet, 10 MG PO Q8H Prescribed by: NURA HOLLIDAY on 07/05/18 1320 Naproxen 500 Mg Tablet, 500 MG PO DAILY Prescribed by: NURA HOLLIDAY on 07/05/18 1320 Patient Home Medication List Home Medication List Reviewed: Yes (BERNADINE WHITE MD) Review of Systems Review of Systems Constitutional: No chills, No dizziness, No fever EENTM: No Blurred Vision, No Nose Congestion, No Throat Pain Respiratory: Denies Cough; Shortness of Air Cardiovascular: Denies Chest Pain, Denies Palpitations Gastrointestinal: Abdominal Pain; Denies Constipated; Diarrhea, Nausea, Vomiting Genitourinary: Denies Burning, Denies Frequency; Other (Chronic hesitency ) Musculoskeletal: No back pain, No muscle weakness Skin: No pruritus, No rash Psychiatric/Neurological: Denies Headache, Denies Numbness, Denies Tingling (MARTA GRIJALVA) Respiratory: Denies Cough, Denies Wheezing Cardiovascular: Denies Chest Pain, Denies Palpitations (BERNADINE WHITE MD) All Other Systems Reviewed Negative Unless Noted: Yes (BERNADINE WHITE MD) Past Dgwrgba-Jilaig-Lgcpuc Hx Past Med/Social Hx: Reviewed Nursing Past Med/Soc Hx (BERNADINE WHITE MD) Patient Social History Alcohol Use: Denies Use Smoking Status: Never a Smoker Recent Infectious Disease Expo: No Recent Hopitalizations: No (MARTA GRIJALVA) Immunizations Up To Date Tetanus Booster (TDap): Unknown (MARTA GRIJALVA) Seasonal Allergies Seasonal Allergies: No (MARTA GRIJALVA) Past Medical History Surgeries: Yes Appendectomy, Gallbladder, Orthopedic Respiratory: No Cardiac: Yes (HEART CATH WITH NO INTERVENTIONS) Hypertension Neurological: No Reproductive Disorders: No Genitourinary: No Gastrointestinal: Yes Diverticulosis Musculoskeletal: No Endocrine: Yes Diabetes, Non-Insulin dep HEENT: No Cancer: No Psychosocial: No Integumentary: No Blood Disorders: No (MARTA GRIJALVA) Family Medical History Reviewed Nursing Family Hx (BERNADINE WHITE MD) No Pertinent Family Hx (BERNADINE WHITE MD) Physical Exam Vital Signs Vital Signs - First Documented 12/27/20 15:10 Temp 37.2 Pulse 68 Resp 16 B/P (MAP) 168/109 (128) Pulse Ox 95 O2 Delivery Room Air (BERNADINE WHITE MD) Vital Signs Capillary Refill : Less Than 3 Seconds (MARTA GRIJALVA) Height/Weight/BMI Height: 6'0" Weight: 208lbs. oz. 94.290310zg; 26.00 BMI Method:Stated General Appearance: WD/WN, mild distress HEENT: PERRL/EOMI, normal ENT inspection, pharynx normal Neck: full range of motion, supple, normal inspection Respiratory: chest non-tender, lungs clear, normal breath sounds Cardiovascular: normal peripheral pulses, regular rate, rhythm, no edema Gastrointestinal: normal bowel sounds, soft, tenderness (Epigastric, ) Extremities: normal range of motion, non-tender, normal inspection Back: normal inspection, no CVA tenderness, no vertebral tenderness Neurologic/Psychiatric: no motor/sensory deficits, alert, normal mood/affect (MARTA GRIJALVA) General Appearance: WD/WN, mild distress HEENT: PERRL/EOMI, pharynx normal Neck: full range of motion, supple Respiratory: lungs clear, normal breath sounds Cardiovascular: regular rate, rhythm, no edema, no murmur Gastrointestinal: soft, tenderness (Epigastric, ) Extremities: non-tender, normal inspection Back: normal inspection, no CVA tenderness, no vertebral tenderness Neurologic/Psychiatric: alert, oriented x 3 Skin: normal color (BERNADINE WHITE MD) Progress/Results/Core Measures Results/Orders Lab Results Laboratory Tests Test 12/27/20 15:19 12/27/20 15:26 Range/Units White Blood Count 9.9 4.3-11.0 10^3/uL Red Blood Count 4.32 4.30-5.52 10^6/uL Hemoglobin 13.8 13.3-17.7 g/dL Hematocrit 41 40-54 % Mean Corpuscular Volume 94 80-99 fL Mean Corpuscular Hemoglobin 32 25-34 pg Mean Corpuscular Hemoglobin Concent 34 32-36 g/dL Red Cell Distribution Width 12.9 10.0-14.5 % Platelet Count 268 130-400 10^3/uL Mean Platelet Volume 11.3 9.0-12.2 fL Immature Granulocyte % (Auto) 1 % Neutrophils (%) (Auto) 82 H 42-75 % Lymphocytes (%) (Auto) 12 12-44 % Monocytes (%) (Auto) 5 0-12 % Eosinophils (%) (Auto) 0 0-10 % Basophils (%) (Auto) 0 0-10 % Neutrophils # (Auto) 8.2 H 1.8-7.8 10^3/uL Lymphocytes # (Auto) 1.2 1.0-4.0 10^3/uL Monocytes # (Auto) 0.5 0.0-1.0 10^3/uL Eosinophils # (Auto) 0.0 0.0-0.3 10^3/uL Basophils # (Auto) 0.0 0.0-0.1 10^3/uL Immature Granulocyte # (Auto) 0.1 0.0-0.1 10^3/uL Sodium Level 138 135-145 MMOL/L Potassium Level 4.6 3.6-5.0 MMOL/L Chloride Level 103 98-107 MMOL/L Carbon Dioxide Level 20 L 21-32 MMOL/L Anion Gap 15 H 5-14 MMOL/L Blood Urea Nitrogen 22 H 7-18 MG/DL Creatinine 0.87 0.60-1.30 MG/DL Estimat Glomerular Filtration Rate > 60 BUN/Creatinine Ratio 25 Glucose Level 128 H 70-105 MG/DL Calcium Level 9.2 8.5-10.1 MG/DL Corrected Calcium 9.2 8.5-10.1 MG/DL Magnesium Level 1.5 L 1.6-2.4 MG/DL Total Bilirubin 0.6 0.1-1.0 MG/DL Aspartate Amino Transf (AST/SGOT) 31 5-34 U/L Alanine Aminotransferase (ALT/SGPT) 32 0-55 U/L Alkaline Phosphatase 73 40-136 U/L C-Reactive Protein High Sensitivity 0.11 0.00-0.50 MG/DL Total Protein 7.8 6.4-8.2 GM/DL Albumin 4.0 3.2-4.5 GM/DL Lipase 11 8-78 U/L Urine Color YELLOW Urine Clarity SL CLOUDY Urine pH 6.5 5-9 Urine Specific [place] 1.025 H 1.016-1.022 Urine Protein TRACE H NEGATIVE Urine Glucose (UA) NEGATIVE NEGATIVE Urine Ketones 2+ H NEGATIVE Urine Nitrite NEGATIVE NEGATIVE Urine Bilirubin NEGATIVE NEGATIVE Urine Urobilinogen 0.2 < = 1.0 MG/DL Urine Leukocyte Esterase NEGATIVE NEGATIVE Urine RBC (Auto) NEGATIVE NEGATIVE Urine RBC NONE /HPF Urine WBC 0-2 /HPF Urine Crystals PRESENT H /LPF Urine Amorphous Sediment RARE GONZALO URATES H /LPF Urine Bacteria NEGATIVE /HPF Urine Casts NONE /LPF Urine Mucus NEGATIVE /LPF Urine Culture Indicated NO Urine Opiates Screen NEGATIVE NEGATIVE Urine Oxycodone Screen NEGATIVE NEGATIVE Urine Methadone Screen NEGATIVE NEGATIVE Urine Propoxyphene Screen NEGATIVE NEGATIVE Urine Barbiturates Screen NEGATIVE NEGATIVE Ur Tricyclic Antidepressants Screen NEGATIVE NEGATIVE Urine Phencyclidine Screen NEGATIVE NEGATIVE Urine Amphetamines Screen NEGATIVE NEGATIVE Urine Methamphetamines Screen NEGATIVE NEGATIVE Urine Benzodiazepines Screen NEGATIVE NEGATIVE Urine Cocaine Screen NEGATIVE NEGATIVE Urine Cannabinoids Screen NEGATIVE NEGATIVE (BERNADINE WHITE MD) My Orders Orders - BERNADINE WHITE MD Cbc With Automated Diff (12/27/20 15:41) Comprehensive Metabolic Panel (12/27/20 15:41) Hs C Reactive Protein (12/27/20 15:41) Lipase (12/27/20 15:41) Magnesium (12/27/20 15:41) Ua Culture If Indicated (12/27/20 15:41) Ed Iv/Invasive Line Start (12/27/20 15:41) Lactated Ringers (Lr 1000 Ml Iv Solution (12/27/20 15:45) Hydromorphone Injection (Dilaudid Inject (12/27/20 16:00) Lidocaine 2% Viscous 15 Ml (Xylocaine Vi (12/27/20 16:00) Antacid Suspension (Mylanta Suspension (12/27/20 16:00) Drug Screen Stat (Urine) (12/27/20 16:15) Famotidine Injection (Pepcid Injection) (12/27/20 16:28) Famotidine Injection (Pepcid Injection) (12/27/20 16:24) (BERNADINE WHITE MD) Medications Given in ED Current Medications Medications Dose Ordered Sig/Dennis Route Start Time Stop Time Status Last Admin Dose Admin Al Hydrox/Mg Hydrox/Simethicone 30 ml ONCE ONCE PO 12/27/20 16:00 12/27/20 16:01 DC 12/27/20 16:32 30 ML Famotidine 20 mg STK-MED ONCE .ROUTE 12/27/20 16:24 12/27/20 16:30 DC 12/27/20 16:32 20 MG Hydromorphone HCl 0.5 mg ONCE ONCE IV 12/27/20 16:00 12/27/20 16:01 DC 12/27/20 16:30 0.5 MG Lactated Ringer's 1,000 ml @ 0 mls/hr Q0M ONCE IV 12/27/20 15:45 12/27/20 15:46 DC 12/27/20 15:48 1,000 MLS/HR Lidocaine HCl 15 ml ONCE ONCE PO 12/27/20 16:00 12/27/20 16:01 DC 12/27/20 16:32 15 ML Ondansetron HCl 4 mg ONCE ONCE IVP 12/27/20 15:45 12/27/20 15:46 DC 12/27/20 15:47 4 MG (BERNADINE WHITE MD) Vital Signs/I&O 12/27/20 15:10 Temp 37.2 Pulse 68 Resp 16 B/P (MAP) 168/109 (128) Pulse Ox 95 O2 Delivery Room Air (BERNADINE WHITE MD) Blood Pressure Mean: 128 Progress Progress Note : Progress Note 1545: Ordered CBC, CMP, Lipase, Mg, CRP, UA. Ordered Zofran for nausea. 0.5mg Diluaded for pain GI cocktail. Anticipate possible CT abdomen/pelvis pending lab results. (MARTA GRIJALVA) Progress Note : Progress Note I have seen and evaluated the patient and agree with above except as indicated. I have directed the plan of care. Patient is here with persistent epigastric pain and now with diarrhea. Started amoxicillin on Monday for some sort of infection possibly. Since then he has had loose stools that have turned to diarrhea. Has had vomiting today. Patient is anxious typically and has lots of problems with stomach acid. He is on Protonix and has been taking that as directed. Does report the use of THC Gummies but says he has not had any of those for a week or 2. This was an effort to not use pain medicine for his chronic back. He is been off pain medicine for a while but had to restart a couple weeks ago. This morning, he took his dose and vomited. He believes he vomited his pain medicine and has not had any since. Ultimately arrives with concerns of the epigastric pain. Did have CT done last week and was seen by Dr. Rivera last Monday. He does not know the results of the CT scan but was given the negative results today. Denies fever chills. Evaluation as above. Plan for IV, labs, UA, Dilaudid 0.5 mg IV, Zofran 4 mg IV and GI cocktail ordered. 1630: I have reviewed with the patient the labs. We have added Pepcid 20 mg IV. No indication for CT scan currently as labs really are benign. This was discussed with the patient and family. Patient's daughter believes this may be ulcer from his hiatal hernia. He has longstanding history and issues with his hiatal hernia and did have repair that apparently failed. We will reevaluate after meds have had time to take cold. Monitor patient. 1720: Overall feeling much better. We will continue outpatient famotidine and he will continue his Protonix. He will follow-up with Dr. Rivera for further evaluation. I have instructed him to stop his amoxicillin. I will send a copy of the chart to Dr. Rivera. Discharged home with return precautions. Patient verbalized under standing of instructions and agreement with plan. (BERNADINE WHITE MD) Departure Impression Primary Impression: Epigastric abdominal pain Additional Impression: Antibiotic-associated diarrhea Disposition: HOME, SELF-CARE Condition: Improved Departure-Patient Inst. Decision time for Depature: 17:21 (BERNADINE WHITE MD) Referrals: NO,LOCAL PHYSICIAN (PCP/Family) Primary Care Physician Patient Instructions: Severe Abdominal Pain, Adult (DC), Diarrhea, Adult ED Add. Discharge Instructions: All discharge instructions reviewed with patient and/or family. Voiced understanding. Stop the amoxicillin. Call Dr. Rivera's office in the morning for appointment this week for recheck and further evaluation. Let them know that you have been instructed to stop the amoxicillin due to diarrhea. You may take Pepcid or the generic famotidine 20 mg once or twice daily for upper stomach pain. Continue other medications as previously prescribed. You should avoid the THC gummy. Clear or light diet for the next 1 to 2 days and then advance as tolerated. Return for worse pain, fever, vomiting, weakness, breathing problems, bloody stools or urine or other concerns as needed. Copy Copies To 1: [facility] Dec 27, 2020 16:03 BERNADINE WHITE MD Dec 27, 2020 16:31
[2020-12-27 16:09] LABS: AMORPHOUS SEDIMENT,UR RARE AMOR URATES /LPF; BACTERIA,URINE NEGATIVE /HPF; WBC,URINE 0-2 /HPF
[2020-12-27] MEDS ORDERED: FAMOTIDINE 20MG/2ML IV (PEPCID) ONE (16:24)
[2020-12-27] MEDS ORDERED: FAMOTIDINE 20MG/2ML IV (PEPCID) IV STA (16:28)
[2020-12-27 16:52] LABS: AMPHETAMINE SCREEN, URINE NEGATIVE (NEGATIVE); BARBITURATE SCREEN URINE NEGATIVE (NEGATIVE); BENZODIAZEPINES SCREEN URINE NEGATIVE (NEGATIVE); CANNABINOID SCREEN, URINE NEGATIVE (NEGATIVE); COCAINE SCREEN URINE NEGATIVE (NEGATIVE); METHADONE STAT NEGATIVE (NEGATIVE); METHAMPHETAMINE SCREEN URINE S NEGATIVE (NEGATIVE); OPIATE SCREEN URINE NEGATIVE (NEGATIVE); OXYCODONE STAT NEGATIVE (NEGATIVE); PROPOXYPHENE STAT NEGATIVE (NEGATIVE); TRICYCLIC ANTIDEPRESSANTS SCRE NEGATIVE (NEGATIVE)
[2020-12-27 17:33] VITALS: BP 150/92
== END 2020-12-27 17:33 | disposition home or self-care (01) ==
LOC: EDUNIT# 15:06 → ER 15:08
DX: R10.13 Epigastric pain (principal); K52.1 Toxic gastroenteritis and colitis; T36.95XA Adverse effect of unspecified systemic antibiotic, initial encounter; I10 Essential (primary) hypertension; Z95.9 Presence of cardiac and vascular implant and graft, unspecified
CPT/HCPCS: 36415; 80053; 80306; 81000; 83690; 83735; 85025; 86141

== ENCOUNTER 2021-01-21 05:34 | Outpatient (RCR) | payer MEDICARE ==
[~2021-01-21] VITALS: Ht 182.9 cm; Wt 83.5 kg
[~2021-01-21 05:34] MED LIST changes: +LISI10TA25 PO; +METF-397 PO; +PREG50CA2 PO; +SUCR1TAB36 PO; +TRM50T PO
[2021-01-22] MEDS ORDERED: OMEP40CA27 PO (13:37)
== END 2021-01-21 09:28 | disposition home or self-care (01) ==
LOC: PREOP 05:34
PROVIDERS: ATTEND Surgery
DX: Z01.812 Encounter for preprocedural laboratory examination (principal); K21.9 Gastro-esophageal reflux disease without esophagitis; Z20.822 Contact with and (suspected) exposure to COVID-19
CPT/HCPCS: 87635

== ENCOUNTER 2021-01-22 11:58 | Day surgery (SDC) | payer MEDICARE ==
[~2021-01-22] VITALS: Ht 182.9 cm; Wt 83.5 kg
[2021-01-22] VITALS (7 sets, daily range): BP systolic 118–168; BP diastolic 73–96
[~2021-01-22 11:58] MED LIST changes: +LACTATED RINGERS 1,000 ML IV ONE
[2021-01-22] MEDS ORDERED: LACTATED RINGERS 1,000 ML IV STA (12:07)
[2021-01-22] MEDS ORDERED: HURRICAINE EXT TUBE (BENZOCAINE) XX PRN (12:15)
[2021-01-22] MEDS ORDERED: PROPOFOL INJECTION 50 ML IV ONE (12:20)
[2021-01-22] MEDS ORDERED: MIDAZOLAM 2 MG/2 ML (VERSED) VIAL ONE (12:21)
[2021-01-22] MEDS ORDERED: LIDOCAINE JELLY 2% 6 ML SYRINGE ONE (12:42)
[2021-01-22] MEDS ORDERED: HURRICAINE EXT TUBE (BENZOCAINE) ONE (12:42)
[2021-01-22] MEDS ORDERED: LIDOCAINE JELLY 2% 6 ML SYRINGE TOP ONE (13:30)
--- NOTE | 2021-01-22 13:34 | Progress Note-Pre Operative ---
Pre-Operative Progress Note H&P Reviewed The H&P was reviewed, patient examined and no changes noted. Date Seen by Provider: Jan 22, 2021 Time Seen by Provider: 12:00 Date H&P Reviewed: Jan 22, 2021 Time H&P Reviewed: 12:00 Pre-Operative Diagnosis: chronic mid-abd pain KARL DE LOS SANTOS MD Jan 22, 2021 13:34
--- NOTE | 2021-01-22 13:36 | Progress Note-Post Operative ---
Post-Operative Progess Note Surgeon (s)/Bottom Crane Operator (s) Surgeon KARL DE LOS SANTOS MD Bottom Crane Operator: none Pre-Operative Diagnosis chronic mid-abd pain Post-Operative Diagnosis reflux esophagitis(stage 2), no recurrent HH, moderate-severe gastritis with large healing prepyloric ulcer, mild-moderate duodenitis. Procedure & Operative Findings Date of Procedure 01/22/21 Procedure Performed/Findings EGD with bx. Anesthesia Type mac Estimated Blood Loss Estimated blood loss (mL): minimal Specimens/Packing Specimens Removed ge jxn, antrum KARL DE LOS SANTOS MD Jan 22, 2021 13:36
[2021-01-22] MEDS ORDERED: OMEP40CA27 PO (13:37)
--- NOTE | 2021-01-22 13:38 | Discharge Inst-Surgical ---
D/C Lap Instructions-KIDO New, Converted, or Re-Newed RX: RX on Chart Follow Up Appt in weeks Activity as tolerated High Fiber Diet 25g or more per day Avoid Alcohol, Caffeine, Spicy [place] and Acid foods. Drink 64 fluid oz or more of fluids per day. Symptoms to Report: Fever over 101 degree F, Nausea/Vomiting If any problems/questions: Contact your physician or go to Emergency Room KARL DE LOS SANOTS MD Jan 22, 2021 13:38
[2021-01-22] MEDS ORDERED: ACETAMINOPHEN 325 MG TABLET PO PRN (13:45)
[2021-01-22] MEDS ORDERED: HYDROcodone/APAP 5 MG/325 MG (LORTAB) TAB PO PRN (13:45)
[2021-01-22] MEDS ORDERED: morphine INJ 10 MG/ML 1ML (SYR OR VIAL) IVP PRN ×2 (13:45)
[2021-01-22] MEDS ORDERED: ONDANSETRON 4 MG/2 ML (SDV) Z0FRAN IVP PRN (13:45)
--- NOTE | 2021-01-22 19:55 | OPERATIVE REPORT ---
DATE OF SERVICE: 01/22/2021 ATTENDING PLATE STACKER: CYNDI Winter PREOPERATIVE DIAGNOSIS: Chronic abdominal pain. POSTOPERATIVE DIAGNOSES: Reflux esophagitis stage II, intact previous hiatal hernia repair, moderate gastritis with a healing prepyloric ulcer greater than 1 cm in size, mild duodenitis. PROCEDURE: EGD with biopsy. SURGEON: Karl De Los Santos MD. ANESTHESIA: Monitored anesthesia care. ESTIMATED BLOOD LOSS: Minimal. FINDINGS: Reflux esophagitis stage II, intact previous hiatal hernia repair, moderate gastritis with a healing prepyloric ulcer greater than 1 cm in size, mild duodenitis. DISPOSITION: The patient tolerated the procedure well. INDICATIONS: The patient is a 71-year-old male with longstanding history of pain in the mid abdominal region. He has been seen in the Emergency Department numerous times and has been worked up with no significant findings. He states no nausea, no vomiting; however, does have a history of gastroesophageal reflux disease. He underwent a hiatal hernia repair and antireflux procedure in 2008. He does not report any dysphagia. He states for the most part his bowel movements are normal. The patient does not report any red blood per rectum nor any dark tarry stools. He did have a colonoscopy approximately 4 years ago at [facility] and only diverticulosis identified. He was recently seen in the Emergency Department where a CT scan was performed on 12/18/2020, which did not show any abnormalities. He has not had an EGD in the past. DESCRIPTION OF PROCEDURE: The patient was brought to the endoscopy suite, laid in the left lateral decubitus position. After adequate IV pain and sedative medications and monitored anesthesia care, the mouthpiece was applied. The endoscope was then placed in the mouth, visualizing the pharynx and hypopharyngeal region. Vocal cords, epiglottis and vallecula identified and appeared to be normal. The endoscope was then gently intubated, the esophageal opening and esophagus insufflated. The endoscope was then advanced through the first, second and third portions of esophagus at the level of the GE junction, reflux esophagitis stage II identified. There were no ulcers or strictures identified in this region. A biopsy was taken with forceps with visualization of good hemostasis. The endoscope was then advanced in the stomach and endoscope retroflexed visualizing no recurrent hiatal hernia as well as an intact previous wrap. There was a moderate gastritis with a healing prepyloric ulcer greater than 1 cm in size. A biopsy was taken of the edge of the ulcer with forceps with visualization of good hemostasis. The endoscope was then advanced through the pylorus into the first and second portion of the duodenum where mild to moderate duodenitis was also identified and a biopsy was taken of the duodenum with visualization of good hemostasis. Endoscope was slowly withdrawn while taking a second look and suctioning of residual air with no additional findings. The patient tolerated the procedure well. We will recommend the necessary lifestyle and diet accommodation including small and more frequent meals, avoidance of eating at night as well as head elevation while lying supine. He also needs to avoid caffeinated beverages, spicy, greasy and acidic foods. He is currently on Protonix; however, feel that he needs b.i.d. dosing. We will also add omeprazole 40 mg daily as well. We will recommend a followup EGD in 8 weeks to verify that the ulcer has healed. Job ID: [id number] DocumentID: [id number] Dictated Date: 01/22/2021 13:17:49 Early Morning Date: 01/22/2021 19:55:13 Dictated By: KARL DE LOS SANTOS MD
--- NOTE | 2021-01-29 10:58 | Anesthesia-General Post-Op ---
MAC Significant Intra-Op Events Notes late entry 01/22/21 @1330 Patient Condition Mental Status/LOC: Same as Preop Cardiovascular: Satisfactory Nausea/Vomiting: Absent Respiratory: Satisfactory Pain: Controlled Complications: Absent Post Op Complications Complications None Follow Up Care/Instructions Patient Instructions None needed. Anesthesiology Discharge Order Discharge Order Patient is doing well, no complaints, stable vital signs, no apparent adverse anesthesia problems. No complications reported per nursing. LISETTE BURR CRNA Jan 29, 2021 10:58
--- NOTE | 2021-02-11 10:14 | HISTORY AND PHYSICAL ---
DATE OF SERVICE: DATE OF ADMISSION: 01/22/2021. ATTENDING FIRE PROTECTION EQUIPMENT TECHNICIAN: CYNDI Winter. HISTORY OF PRESENT ILLNESS: The patient is a 71-year-old male, who states that he has had a longstanding history of pain in the mid abdominal region. He has been seen in the emergency department multiple times and has been worked up with no significant findings. States that he does not have any nausea, no vomiting and has had a history of gastroesophageal reflux disease; however, underwent a hiatal hernia repair as well as a Alonzo fundoplication in 2008. He does not report any dysphagia. He states that, at this time, his bowel movements are normal. He does not report any red blood per rectum nor any dark tarry stools. He did have a colonoscopy approximately four years ago at [facility] and only diverticulosis was identified. He was recently seen in the emergency department, where a CT scan was performed on 12/18/2020, which did not show any abnormalities. He states that he has not had an EGD done in the past. PAST MEDICAL HISTORY: Hypertension, hypercholesterolemia, and history of diverticulosis. PAST SURGICAL HISTORY: Laparoscopic cholecystectomy in 2005, open inguinal hernia repair in 1965, laparoscopic Alonzo fundoplication in 2008, open appendectomy and back surgery in 2011. ALLERGIES: No known drug allergies. MEDICATIONS: Lyrica, metformin, lisinopril, Carafate, Protonix, and hydrocodone. SOCIAL HISTORY: Negative smoke and negative alcohol. FAMILY HISTORY: Father with prostate cancer. REVIEW OF SYSTEMS: A well-nourished male, who states that he is in pain; however, does not appear to be in any acute distress. He is not experiencing any shortness of breath nor difficulty breathing. No chest pain, palpitations or diaphoresis. No nausea, vomiting, no diarrhea, constipation, no red blood per rectum, and no dark tarry stools. No fever, chills, no recent inadvertent weight loss. All other review of systems is negative. PHYSICAL EXAMINATION: VITAL SIGNS: Stable, current weight 184.6 pounds at 6 feet 2 inches. CHEST: Clear. Good breath sounds bilaterally. HEART: Regular and no murmurs. EXTREMITIES: No lower extremity edema and negative Homans sign. HEENT: No scleral icterus. NECK: No cervical lymphadenopathy. ABDOMEN: Soft. He states there is discomfort upon the mid abdominal region. No palpable hernias. SKIN: Warm and dry. ASSESSMENT AND PLAN: A 70-year-old male with mid abdominal pain with history of gastroesophageal reflux disease. This pain appears to be chronic and has been worked up multiple times and he has had a colonoscopy before in the past as well as a CT scan, which has not shown any abnormalities. The only thing that appears to not have been done is an upper endoscopy, which we will proceed with as well as biopsies as appropriate. Job ID: [id number] DocumentID: [id number] Dictated Date: 01/19/2021 14:27:02 Taker Out Date: 01/19/2021 14:57:19 Dictated By: KARL DE LOS SANTOS MD <Dictated by KARL DE LOS SANTOS MD> <Electronically signed by KARL DE LOS SANTOS MD> 01/20/21 1033 MTDD
== END 2021-01-22 14:10 | disposition home or self-care (01) ==
LOC: ENDO 11:58
PROVIDERS: ATTEND Surgery
DX: K21.00 Gastro-esophageal reflux disease with esophagitis, without bleeding (principal); K44.9 Diaphragmatic hernia without obstruction or gangrene; K29.90 Gastroduodenitis, unspecified, without bleeding; I10 Essential (primary) hypertension; J45.909 Unspecified asthma, uncomplicated; E11.9 Type 2 diabetes mellitus without complications; Z79.899 Other long term (current) drug therapy
CPT/HCPCS: 82962; 88305; 88312; 88342

== ENCOUNTER 2021-11-17 14:50 | Emergency (ER) | payer MEDICARE ==
[~2021-11-17] VITALS: Ht 182 cm; Wt 78.0 kg
[~2021-11-17 14:50] MED LIST changes: +CYCL10TA25 PO; -CYCL10TA9 PO; -LACTATED RINGERS 1,000 ML IV ONE; +OMEP40CA6 PO
[2021-11-17 15:30] VITALS: BP 139/107
[2021-11-17] MEDS ORDERED: TRM50T PO (15:41)
[2021-11-17] MEDS ORDERED: NAPR-1071 PO (15:42)
--- NOTE | 2021-11-17 15:42 | ED General ---
General Stated Complaint: ABCESS TOOTH Source of Information: Patient Exam Limitations: No Limitations History of Present Illness Date Seen by Provider: Nov 17, 2021 Time Seen by Provider: 15:37 Initial Comments To ER with painful teeth secondary to cavities. He is already on amoxicillin but denies much improvement. He has an appointment to get these teeth extracted but needs something for pain control. States that he formerly took tramadol which helped Timing/Duration: 1 Week Severity: Moderate Associated Systoms: Denies Symptoms Allergies and Home Medications Allergies Coded Allergies: YAHIRANo Known Allergies (Verified Allergy, Unknown, 01/22/07) Patient Home Medication List Home Medication List Reviewed: Yes Lisinopril (Lisinopril) 10 Mg Tablet, 10 MG PO DAILY, (Reported) Entered as Reported by: OMID ARROYO on 01/20/21 1318 Metformin HCl (Metformin HCl) 500 Mg Tablet, 500 MG PO DAILY, (Reported) Entered as Reported by: OMID ARROYO on 01/20/21 1318 Omeprazole (Omeprazole) 40 Mg Capsule.dr, 40 MG PO DAILY Prescribed by: KARL DE LOS SANTOS on 01/22/21 1337 Pregabalin (Lyrica) 50 Mg Capsule, 50 MG PO DAILY, (Reported) Entered as Reported by: OMID ARROYO on 01/20/21 1318 Sucralfate (Carafate) 1 Gm Tablet, 1 GM PO ACHS, (Reported) Entered as Reported by: OMID ARROYO on 01/20/21 1318 Tramadol HCl (Tramadol HCl) 50 Mg Tablet, 50 MG PO Q4H PRN for PAIN-MILD (1-4), (Reported) Entered as Reported by: OMID ARROYO on 01/20/21 1318 Review of Systems Review of Systems Constitutional: see HPI EENTM: see HPI Respiratory: no symptoms reported Cardiovascular: no symptoms reported Genitourinary: no symptoms reported Musculoskeletal: no symptoms reported Skin: no symptoms reported Psychiatric/Neurological: No Symptoms Reported Hematologic/Lymphatic: No Symptoms Reported Immunological/Allergic: no symptoms reported Past Faxjnbq-Nyxgwq-Wlidlx Hx Immunizations Up To Date Tetanus Booster (TDap): Unknown Seasonal Allergies Seasonal Allergies: No Past Medical History Surgeries: Yes Appendectomy, Gallbladder, Orthopedic Respiratory: No Cardiac: Yes (HEART CATH WITH NO INTERVENTIONS) Hypertension Neurological: No Reproductive Disorders: No Genitourinary: No Gastrointestinal: Yes Diverticulosis Musculoskeletal: No Endocrine: Yes Diabetes, Non-Insulin dep HEENT: No Cancer: No Psychosocial: No Integumentary: No Blood Disorders: No Family Medical History No Pertinent Family Hx Physical Exam Vital Signs Capillary Refill : Height, Weight, BMI Height: 6'0" Weight: 208lbs. oz. 94.692843ix; 24.96 BMI Method:Stated General Appearance: No Apparent Distress, WD/WN Eyes: Bilateral Eye Normal Inspection, Bilateral Eye PERRL, Bilateral Eye EOMI HEENT: PERRL/EOMI, TMs Normal, Other (Multiple teeth are fractured carious and eroded down to the gums. There is no fluctuant abscess or visible swelling.) Neck: Full Range of Motion, Normal Inspection Respiratory: No Accessory Muscle Use, No Respiratory Distress Gastrointestinal: Normal Bowel Sounds, Non Tender, Soft Extremity: Normal Capillary Refill, Normal Inspection Neurologic/Psychiatric: Alert, Oriented x3 Skin: Normal Color, Warm/Dry Progress/Results/Core Measures Suspected Sepsis SIRS Temperature: Pulse: Respiratory Rate: Blood Pressure / Mean: Results/Orders Vital Signs/I&O Capillary Refill : Departure Impression Primary Impression: Pain, dental Disposition: HOME, SELF-CARE Condition: Stable Departure-Patient Inst. Decision time for Depature: 15:39 Referrals: NO,LOCAL PHYSICIAN (PCP) Primary Care Physician TARIQ ROCHA (Family) Primary Care Physician Patient Instructions: Dental Pain (DC) Add. Discharge Instructions: 1. Keep your appointment with your dentist. Scripts Naproxen (Naprosyn) 500 Mg Tablet 500 MG PO BID PRN for PAIN-MODERATE (5-7), #20 TAB 0 Refills Prov: BEN NOVA LADIES ATTENDANT 11/17/21 Tramadol HCl (Tramadol HCl) 50 Mg Tablet 50 MG PO Q6H PRN for PAIN for 3 Days, #14 TAB 0 Refills Prov: BEN NOVA LADIES ATTENDANT 11/17/21 BEN NOVA APRN Nov 17, 2021 15:42
== END 2021-11-17 15:48 | disposition home or self-care (01) ==
LOC: EDUNIT# 14:50 → ER 14:52
DX: K08.89 Other specified disorders of teeth and supporting structures (principal); I10 Essential (primary) hypertension; E11.9 Type 2 diabetes mellitus without complications; Z79.84 Long term (current) use of oral hypoglycemic drugs; Z79.899 Other long term (current) drug therapy
CPT/HCPCS: 99285

== ENCOUNTER 2021-11-28 10:09 | Emergency (ER) | payer MEDICARE ==
[~2021-11-28] VITALS: Ht 182.8 cm; Wt 78.6 kg
[2021-11-28] MEDS ORDERED: TRAM-42 PO (10:29)
[2021-11-28] MEDS ORDERED: AMOX500C2 PO (10:29)
--- NOTE | 2021-11-28 10:31 | ED EENT ---
History of Present Illness General Chief Complaint: Dental Problems/Pain Stated Complaint: ABCESS TOOTH SEEN 11/17/21 Nursing Triage Note: AMB TO ROOM WITH C/O DENTAL PAIN SINCE 11/[address] NICHOLAS OFFICE ASKING FOR TRAMADOL WAS TOLD NO. ALSO REPORTS [facility] WILL NOT GIVE IT TO HIM. WAS SEEN RECENT IN THIS ER FOR DENTAL PAIN Source: patient Exam Limitations: no limitations History of Present Illness Date Seen by Provider: Nov 28, 2021 Time Seen by Provider: 10:17 Initial Comments This is 71-year-old gentleman presents to the emergency room with complaints of bilateral dental pain. It causes him to have headaches and they feel ill. He has had these problems with poor dentition in the past as well. He anticipates having his teeth pulled in the near future to get dentures. He has numerous teeth that are worn down below the gumline. He is afebrile at present. He is afebrile at present. Allergies and Home Medications Allergies Coded Allergies: hydrocodone (Verified Allergy, Severe, ITCHING, 11/17/21) NKANo Known Allergies (Verified Allergy, Unknown, 01/22/07) Patient Home Medication List Home Medication List Reviewed: Yes Amoxicillin (Amoxicillin) 500 Mg Capsule, 1,000 MG PO BID Prescribed by: TROY BUCIO on 11/28/21 1029 Lisinopril (Lisinopril) 10 Mg Tablet, 10 MG PO DAILY, (Reported) Entered as Reported by: OMID ARROYO on 01/20/21 1318 Metformin HCl (Metformin HCl) 500 Mg Tablet, 500 MG PO DAILY, (Reported) Entered as Reported by: OMID ARROYO on 01/20/21 1318 Naproxen (Naprosyn) 500 Mg Tablet, 500 MG PO BID PRN for PAIN-MODERATE (5-7) Prescribed by: BEN NOVA on 11/17/21 1542 Omeprazole (Omeprazole) 40 Mg Capsule., 40 MG PO DAILY Prescribed by: KARL DE LOS SANTOS on 01/22/21 1337 Pregabalin (Lyrica) 50 Mg Capsule, 50 MG PO DAILY, (Reported) Entered as Reported by: OMID ARROYO on 01/20/21 1318 Sucralfate (Carafate) 1 Gm Tablet, 1 GM PO ACHS, (Reported) Entered as Reported by: OMID ARROYO on 01/20/21 1318 Tramadol HCl (Tramadol HCl) 50 Mg Tablet, 50 MG PO Q4H PRN for PAIN-MILD (1-4), (Reported) Entered as Reported by: OMID ARROYO on 01/20/21 1318 Tramadol HCl (Tramadol HCl) 50 Mg Tablet, 50 MG PO Q6H PRN for PAIN Prescribed by: BEN NOVA on 11/17/21 1541 Tramadol HCl (Ultram) 50 Mg Tablet, 50 MG PO Q6H PRN for PAIN-BREAKTHROUGH Prescribed by: TROY BUCIO on 11/28/21 1030 Review of Systems Review of Systems Constitutional: no symptoms reported Eyes: No Symptoms Reported Ears: No Symptoms Reported Nose: no symptoms reported Mouth: see HPI Throat: no symptoms reported Respiratory: no symptoms reported Cardiovascular: no symptoms reported Gastrointestinal: no symptoms reported Musculoskeletal: no symptoms reported Skin: no symptoms reported Neurological: See HPI Hematologic/Lymphatic: No Symptoms Reported Immunological/Allergic: no symptoms reported Past Ywhurha-Esozqq-Sfcfhb Hx Immunizations Up To Date Tetanus Booster (TDap): Unknown Seasonal Allergies Seasonal Allergies: No Past Medical History Surgeries: Yes Appendectomy, Gallbladder, Orthopedic Respiratory: No Cardiac: Yes (HEART CATH WITH NO INTERVENTIONS) Hypertension Neurological: No Reproductive Disorders: No Genitourinary: No Gastrointestinal: Yes Diverticulosis Musculoskeletal: No Endocrine: Yes Diabetes, Non-Insulin dep HEENT: Yes (Severe dental decay) Cancer: No Psychosocial: No Integumentary: No Blood Disorders: No Family Medical History No Pertinent Family Hx Physical Exam Vital Signs Vital Signs - First Documented 11/28/21 10:13 Temp 37.7 Pulse 100 Resp 18 B/P (MAP) 149/77 (101) Pulse Ox 95 Height, Weight, BMI Height: 6'0" Weight: 208lbs. oz. 94.224011rd; 23.00 BMI Method:Stated General Appearance: WD/WN, no apparent distress Eyes: bilateral eye normal inspection, bilateral eye PERRL, bilateral eye EOMI Ears: bilateral ear auricle normal, bilateral ear canal normal, bilateral ear TM normal Nose: normal inspection Mouth/Throat: other (Severe dental decay throughout the mouth with numerous teeth eroded below the gumline. There are localized areas of edema without overt abscess or infection visualized from the surface.) Neck: normal inspection, lymphadenopathy (R), lymphadenopathy (L) Cardiovascular: regular rate, rhythm, no edema, no murmur Respiratory: lungs clear, normal breath sounds, no respiratory distress Neurologic/Psychiatric: alert, normal mood/affect, oriented x 3 Skin: normal color, warm/dry Progress/Results/Core Measures Results/Orders Vital Signs/I&O 11/28/21 10:13 Temp 37.7 Pulse 100 Resp 18 B/P (MAP) 149/77 (101) Pulse Ox 95 Blood Pressure Mean: 101 Departure Impression Primary Impression: Dental decay Additional Impression: Dental implant pain Qualified Codes: T85.848A - Pain due to other internal prosthetic devices, implants and grafts, initial encounter Disposition: HOME, SELF-CARE Condition: Stable Departure-Patient Inst. Decision time for Depature: 10:26 Referrals: NO,LOCAL PHYSICIAN (PCP/Family) Primary Care Physician Patient Instructions: Tooth Decay, Adult (DC), Dental Pain ED Add. Discharge Instructions: Complete your antibiotics as prescribed. For primary pain control you may use Tylenol (acetaminophen) up to 1000 mg every 6 hours as needed and/or ibuprofen up to 600 mg every 6 hours as needed. You may substitute naproxen up to 500 mg twice daily instead of ibuprofen if you choose. Do not take both ibuprofen and naproxen; pick one or the other. For pain not adequately controlled by jtgn-xwr-fzmrukh medications, add Ultram (tramadol) as prescribed. Follow-up with a dentist as soon as possible to be evaluated for dental extractions. Call with questions or concerns. Return to care if you have worsening symptoms. All discharge instructions reviewed with patient and/or family. Voiced understanding. Scripts Tramadol HCl (Ultram) 50 Mg Tablet 50 MG PO Q6H PRN for PAIN-BREAKTHROUGH, #20 TAB Prov: TROY MANCIA MD 11/28/21 Amoxicillin (Amoxicillin) 500 Mg Capsule 1000 MG PO BID, #40 CAP 0 Refills Prov: TROY MANCIA MD 11/28/21 TROY MANCIA MD Nov 28, 2021 10:30
[2021-11-28 10:36] VITALS: BP 149/77
== END 2021-11-28 10:36 | disposition home or self-care (01) ==
LOC: EDUNIT# 10:09 → ER 10:10
DX: K02.9 Dental caries, unspecified (principal); T85.848A Pain due to other internal prosthetic devices, implants and grafts, initial encounter; I10 Essential (primary) hypertension; E11.9 Type 2 diabetes mellitus without complications; Z79.84 Long term (current) use of oral hypoglycemic drugs; Z79.899 Other long term (current) drug therapy
CPT/HCPCS: 99282

== ENCOUNTER 2021-12-04 09:32 | Emergency (ER) | payer MEDICARE ==
[~2021-12-04] VITALS: Ht 182 cm; Wt 78.9 kg
[~2021-12-04 09:32] MED LIST changes: +AMOX500C2 PO; +TRAM-42 PO
--- NOTE | 2021-12-04 10:01 | ED EENT ---
History of Present Illness General Chief Complaint: Dental Problems/Pain Stated Complaint: DENTAL PAIN Nursing Triage Note: [facility]. Source: patient Exam Limitations: no limitations History of Present Illness Date Seen by Provider: Dec 04, 2021 Time Seen by Provider: 09:45 Initial Comments Patient is a 71-year-old male who presents to the emergency room with a chief complaint of continuous dental pain. Patient has had multiple prior visits for dental pain with prescriptions for tramadol. He states that he has been using topical lidocaine as well as Tylenol and ibuprofen. He states he is lost his most recent prescriptions for tramadol and has to hide them in his house and cannot find them. He is currently taking antibiotics. He denies fevers or chills, no chest pain or shortness of breath no other complaints of systemic illness. All other review of systems reviewed and negative except as stated. Timing/Duration: other (constant) Severity: moderate Location: dental Allergies and Home Medications Allergies Coded Allergies: hydrocodone (Verified Allergy, Severe, ITCHING, 11/17/21) NKANo Known Allergies (Verified Allergy, Unknown, 01/22/07) Patient Home Medication List Home Medication List Reviewed: Yes Amoxicillin (Amoxicillin) 500 Mg Capsule, 1,000 MG PO BID Prescribed by: TROY BUCIO on 11/28/21 1029 Lisinopril (Lisinopril) 10 Mg Tablet, 10 MG PO DAILY, (Reported) Entered as Reported by: OMID ARROYO on 01/20/21 1318 Metformin HCl (Metformin HCl) 500 Mg Tablet, 500 MG PO DAILY, (Reported) Entered as Reported by: OMID ARROYO on 01/20/21 1318 Naproxen (Naprosyn) 500 Mg Tablet, 500 MG PO BID PRN for PAIN-MODERATE (5-7) Prescribed by: BEN NOVA on 11/17/21 1542 Omeprazole (Omeprazole) 40 Mg Capsule.dr, 40 MG PO DAILY Prescribed by: KARL DE LOS SANTOS on 01/22/21 1337 Pregabalin (Lyrica) 50 Mg Capsule, 50 MG PO DAILY, (Reported) Entered as Reported by: OMID ARROYO on 01/20/21 1318 Sucralfate (Carafate) 1 Gm Tablet, 1 GM PO ACHS, (Reported) Entered as Reported by: OMID ARORYO on 01/20/21 1318 Tramadol HCl (Tramadol HCl) 50 Mg Tablet, 50 MG PO Q4H PRN for PAIN-MILD (1-4), (Reported) Entered as Reported by: OMID ARROYO on 01/20/21 1318 Tramadol HCl (Tramadol HCl) 50 Mg Tablet, 50 MG PO Q6H PRN for PAIN Prescribed by: BEN NOVA on 11/17/21 1541 Tramadol HCl (Ultram) 50 Mg Tablet, 50 MG PO Q6H PRN for PAIN-BREAKTHROUGH Prescribed by: TROY BUCIO on 11/28/21 1030 Review of Systems Review of Systems Constitutional: see HPI Eyes: No Symptoms Reported Ears: No Symptoms Reported Mouth: pain (dental pain) Throat: no symptoms reported Respiratory: no symptoms reported Cardiovascular: no symptoms reported Gastrointestinal: no symptoms reported Musculoskeletal: no symptoms reported Skin: no symptoms reported All Other Systems Reviewed Negative Unless Noted: Yes Past Gelkmce-Zrchxa-Wgqheb Hx Patient Social History Tobacco Use?: No Substance use?: No Alcohol Use?: Yes Alcohol Frequency: Rarely Pt feels they are or have been: No Immunizations Up To Date Tetanus Booster (TDap): Unknown First/Initial COVID19 Vaccinat: UNKNOW DATE Second COVID19 Vaccination Vladimir: UNKNOW DATE Third COVID19 Vaccination Date: YES 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: [employer] Seasonal Allergies Seasonal Allergies: No Past Medical History Surgery/Hospitalization HX: PMH: DM, HTN, DENTAL SX: HERNIA REPAIR, APPY Surgeries: Yes Appendectomy, Gallbladder, Orthopedic Respiratory: No Cardiac: Yes (HEART CATH WITH NO INTERVENTIONS) Hypertension Neurological: No Reproductive Disorders: No Genitourinary: No Gastrointestinal: Yes Diverticulosis Musculoskeletal: No Endocrine: Yes Diabetes, Non-Insulin dep HEENT: Yes (Severe dental decay) Cancer: No Psychosocial: No Integumentary: No Blood Disorders: No Family Medical History No Pertinent Family Hx Physical Exam Vital Signs Vital Signs - First Documented 12/04/21 09:42 Temp 35.9 Pulse 106 Resp 16 B/P (MAP) 148/88 (108) Pulse Ox 99 Height, Weight, BMI Height: 6'0" Weight: 208lbs. oz. 94.405346it; 23.00 BMI Method:Stated General Appearance: WD/WN, no apparent distress Eyes: bilateral eye normal inspection, bilateral eye PERRL, bilateral eye EOMI Nose: normal inspection Mouth/Throat: other (Significant carious teeth eroded down to the gumline. No specific gingival erythema or fluctuance or overt swelling. Oral mucosa is moist. Posterior pharynx, normal anatomy) Neck: full range of motion, supple Cardiovascular: regular rate, rhythm Respiratory: lungs clear, normal breath sounds, no respiratory distress, no accessory muscle use Skin: normal color, warm/dry Progress/Results/Core Measures Results/Orders Vital Signs/I&O 12/04/21 09:42 Temp 35.9 Pulse 106 Resp 16 B/P (MAP) 148/88 (108) Pulse Ox 99 Blood Pressure Mean: 108 Progress Progress Note : Time: 09:58 Progress Note I lifted the patient's external medication history, he has had multiple prescriptions for tramadol filled over the last month. He had 30 tablets of tramadol filled on 10/31, 60 tablets of tramadol filled on November 06, 2013 tablets of tramadol filled on November 17, 1939 tablets filled on November 20 and 20 more tramadol tablets filled on November 29. I did advise him that I would not be able to prescribe him any further tramadol. Recommended oral rinses qubo-wyu-ontkwto, Tylenol and ibuprofen. Have encouraged him to follow-up with [facility] dental. I also counseled him on the addiction potential for tramadol. Departure Impression Primary Impression: Chronic dental pain Additional Impression: Moderate tramadol dependence Disposition: HOME, SELF-CARE Condition: Stable Departure-Patient Inst. Decision time for Depature: 10:00 Referrals: [facility] OSVALDO,LOCAL PHYSICIAN (PCP) Primary Care Physician Patient Instructions: Dental Pain ED Add. Discharge Instructions: Please continue to do oral rinses daily, twice a day. Alternate ibuprofen and Tylenol with food every 6 hours. Do not take more than 3-4 ibuprofen at a time. You should take an ujct-zpf-zmbasev acid advanced analytics associate such as Pepcid while you are taking ibuprofen. Please call and follow-up with the dentist on Monday first thing. DARBY WATKINS MD Dec 04, 2021 10:01
[2021-12-04 10:22] VITALS: BP 148/88
== END 2021-12-04 10:22 | disposition home or self-care (01) ==
LOC: EDUNIT# 09:32 → ER 09:34
DX: G89.29 Other chronic pain (principal); K08.89 Other specified disorders of teeth and supporting structures; F11.20 Opioid dependence, uncomplicated; I10 Essential (primary) hypertension; E11.9 Type 2 diabetes mellitus without complications; Z79.84 Long term (current) use of oral hypoglycemic drugs; Z79.899 Other long term (current) drug therapy
CPT/HCPCS: 99282

== ENCOUNTER 2022-02-05 09:35 | Emergency (ER) | payer MEDICARE ==
[~2022-02-05] VITALS: Ht 182.8 cm; Wt 71.7 kg
[2022-02-05 09:52] VITALS: BP 142/92
--- NOTE | 2022-02-05 10:05 | ED EENT ---
History of Present Illness General Chief Complaint: Dental Problems/Pain Stated Complaint: DENTAL PAIN Nursing Triage Note: PT ARRIVAL TO ER WITH DENTAL PAIN. PT STATES THAT HE HAS BEEN USING A DENTIST AT [facility], BUT HE HAS MULTIPLE TEETH THAT ARE BOTHERING HIM, AND THEY WILL ONLY PULL ONE AT A TIME. PT STATES THAT HE HAS USED TRAMADOL WHICH USUALLY WORKS, BUT HE IS OUT OF IT. PT STATES THAT HIS DENTAL PAIN IS WORSE THEN THE PAIN OF BOTH OF HIS PREVIOUS BACK SURGERIES. Source: patient Exam Limitations: no limitations (FRANCISCO J FRANCES STUDENT) History of Present Illness Date Seen by Provider: Feb 05, 2022 Time Seen by Provider: 09:52 Initial Comments Mr. Vargas is a 71yo male with PMH chronic tooth pain and poor dentition presents today for Dental pain. He has had three visits for tooth pain this year. States he Wants to get his teeth pulled but [facility] will only do one at a time. States that [facility] recently started taking his insurance and that he is going to try to get an appointment there. The pain he is having today is chronic. States that he took his last tramadol this morning around 0530 and is hoping he can get some more to last until he can get an appointment. He normally is taking 2-[address] Ritchie has been filling the tramadol for him but his clinic is closed today. He does not currently have an appointment with [facility]. He has not other complaints today aside from dental pain. (FRANCISCO J FRANCES MED STUDENT) Allergies and Home Medications Allergies Coded Allergies: hydrocodone (Verified Allergy, Severe, ITCHING, 11/17/21) NKANo Known Allergies (Verified Allergy, Unknown, 01/22/07) Patient Home Medication List Home Medication List Reviewed: Yes (TROY MANCIA MD) Amoxicillin (Amoxicillin) 500 Mg Capsule, 1,000 MG PO BID Prescribed by: TROY BUCIO on 11/28/21 1029 Lisinopril (Lisinopril) 10 Mg Tablet, 10 MG PO DAILY, (Reported) Entered as Reported by: OMID ARROYO on 01/20/21 1318 Metformin HCl (Metformin HCl) 500 Mg Tablet, 500 MG PO DAILY, (Reported) Entered as Reported by: OMID ARROYO on 01/20/21 1318 Naproxen (Naprosyn) 500 Mg Tablet, 500 MG PO BID PRN for PAIN-MODERATE (5-7) Prescribed by: BEN NOVA on 11/17/21 1542 Omeprazole (Omeprazole) 40 Mg Capsule.dr, 40 MG PO DAILY Prescribed by: KARL DE LOS SANTOS on 01/22/21 1337 Pregabalin (Lyrica) 50 Mg Capsule, 50 MG PO DAILY, (Reported) Entered as Reported by: OMID ARROYO on 01/20/21 1318 Sucralfate (Carafate) 1 Gm Tablet, 1 GM PO ACHS, (Reported) Entered as Reported by: OMID ARROYO on 01/20/21 1318 Tramadol HCl (Tramadol HCl) 50 Mg Tablet, 50 MG PO Q4H PRN for PAIN-MILD (1-4), (Reported) Entered as Reported by: OMID ARROYO on 01/20/21 1318 Tramadol HCl (Tramadol HCl) 50 Mg Tablet, 50 MG PO Q6H PRN for PAIN Prescribed by: BEN NOVA on 11/17/21 1541 Tramadol HCl (Ultram) 50 Mg Tablet, 50 MG PO Q6H PRN for PAIN-BREAKTHROUGH Prescribed by: TROY BUCIO on 11/28/21 1030 Review of Systems Review of Systems Constitutional: No chills, No fever Eyes: Denies Blurred Vision, Denies Pain Ears: Denies Dizziness, Denies Pain Mouth: loose teeth, pain, other (foul taste in mouth) Throat: denies pain, denies swelling Respiratory: No cough, No short of breath Cardiovascular: No chest pain, No palpitations Gastrointestinal: No abdominal pain, No constipation, No diarrhea, No nausea, No vomiting Musculoskeletal: No joint pain, No joint swelling Skin: No lesions, No rash Neurological: Denies Headache, Denies Numbness (FRANCISCO J FRANCES MED STUDENT) Past Xvibdan-Omdffg-Frdbqh Hx Patient Social History Tobacco Use?: No Use of E-Cig and/or Vaping dev: No Substance use?: No Alcohol Use?: Yes Alcohol type: Beer Alcohol Frequency: Rarely Pt feels they are or have been: No (FRANCISCO J FRANCES MED STUDENT) Immunizations Up To Date Tetanus Booster (TDap): Unknown Influenza Vaccine Up-to-Date: Yes; Up-to-Date First/Initial COVID19 Vaccinat: UNKNOW DATE Second COVID19 Vaccination Vladimir: UNKNOW DATE Third COVID19 Vaccination Date: YES (FRANCISCO J FRANCES MED STUDENT) Seasonal Allergies Seasonal Allergies: No (FRANCISCO J FRANCES [employer] STUDENT) Past Medical History Surgery/Hospitalization HX: PMH: DM, HTN, DENTAL SX: HERNIA REPAIR, APPY Surgeries: Yes Appendectomy, Gallbladder, Orthopedic Respiratory: No Cardiac: Yes (HEART CATH WITH NO INTERVENTIONS) Hypertension Neurological: No Reproductive Disorders: No Genitourinary: No Gastrointestinal: Yes Diverticulosis Musculoskeletal: No Endocrine: Yes Diabetes, Non-Insulin dep HEENT: Yes (Severe dental decay) Cancer: No Psychosocial: No Integumentary: No Blood Disorders: No (FRANCISCO J FRANCES [employer] STUDENT) Family Medical History No Pertinent Family Hx (FRANCISCO J FRANCES [employer] STUDENT) Physical Exam Vital Signs Vital Signs - First Documented 02/05/22 09:52 Temp 36.8 Pulse 96 Resp 18 B/P (MAP) 142/92 (109) Pulse Ox 97 O2 Delivery Room Air (TROY MANCIA MD) Height, Weight, BMI Height: 6'0" Weight: 208lbs. oz. 94.953993um; 21.00 BMI Method:Stated General Appearance: WD/WN, no apparent distress Eyes: bilateral eye normal inspection, bilateral eye PERRL, bilateral eye EOMI Mouth/Throat: other (Poor Dentition. Multiple teeth missing from all quadrants of mouth. Multiple carries and decay noted up to gumline. No abscess or swelling of gums noted. Teeth #2-3 tender to palpation and are most tender. Generalized tooth pain in rest of mouth.) Cardiovascular: normal peripheral pulses, regular rate, rhythm, no edema, no murmur Respiratory: chest non-tender, lungs clear, normal breath sounds Neurologic/Psychiatric: alert, normal mood/affect, oriented x 3 Skin: normal color, warm/dry (FRANCISCO J FRANCES [employer] STUDENT) Progress/Results/Core Measures Results/Orders Vital Signs/I&O 02/05/22 09:52 Temp 36.8 Pulse 96 Resp 18 B/P (MAP) 142/92 (109) Pulse Ox 97 O2 Delivery Room Air (TROY MANCIA MD) Blood Pressure Mean: 109 Progress Progress Note : Time: 11:18 Progress Note Patient was seen and examined by Francisco J Frances, MS 4. Unfortunately, he did not want to wait to be seen by a physician. He therefore signed AMA papers and left before he could be seen by a physician or midlevel provider. Vital signs were stable and he was in no distress at the time of his departure. (TROY MANCIA MD) Departure Impression Primary Impression: Chronic dental pain Additional Impression: Left against medical advice Disposition: 07 AGAINST MEDICAL ADVICE Condition: Against Medical Advice Departure-Patient Inst. Referrals: NO,LOCAL PHYSICIAN (PCP/Family) Primary Care Physician FRANCISCO J FRANCES MED STUDENT Feb 05, 2022 10:05 TROY MANCIA MD Feb 05, 2022 11:20
== END 2022-02-05 11:13 | disposition left against medical advice (07) ==
LOC: EDUNIT# 09:35 → ER 09:38
DX: G89.29 Other chronic pain (principal); K08.89 Other specified disorders of teeth and supporting structures
CPT/HCPCS: 99282

== ENCOUNTER 2022-02-19 09:42 | Emergency (ER) | payer MEDICARE ==
[~2022-02-19] VITALS: Ht 182 cm; Wt 75.0 kg
[2022-02-19 09:50] VITALS: BP 181/106
== END 2022-02-19 11:16 | disposition left against medical advice (07) ==
LOC: EDUNIT# 09:42 → ER 09:45
DX: K08.89 Other specified disorders of teeth and supporting structures (principal)
CPT/HCPCS: 99282

== ENCOUNTER 2022-03-28 10:16 | Emergency (ER) | payer MEDICARE ==
[~2022-03-28] VITALS: Ht 180.3 cm; Wt 79.4 kg
--- NOTE | 2022-03-28 11:11 | ED EENT ---
History of Present Illness General Chief Complaint: Dental Problems/Pain Stated Complaint: ABCESS TEETH Nursing Triage Note: Pt arrival to ER with complaint of dental pain x3 days. Unable to be seen by dentist at this time. Pt seen at [facility] and given NSAIDS per patient on monday. Pt has hx of ulcers so he is unable to take them. Source: patient Exam Limitations: no limitations History of Present Illness Date Seen by Provider: March 28, 2022 Time Seen by Provider: 10:55 Initial Comments Patient to the ER by private conveyance chief complaint of several months and/or years he has been having significant dental pain. With past couple months been on antibiotics following with [facility] in [place]. He says he needs dental extractions. He is most recently on amoxicillin followed by azithromycin. He has had no problems with the antibiotics. He has viscous lidocaine. He says the pain is significant and he cannot sleep and he really wants some tramadol. He is on Magic mouthwash. Allergies and Home Medications Allergies Coded Allergies: hydrocodone (Verified Allergy, Severe, ITCHING, 11/17/21) NKANo Known Allergies (Verified Allergy, Unknown, 01/22/07) Patient Home Medication List Home Medication List Reviewed: Yes Amoxicillin (Amoxicillin) 500 Mg Capsule, 1,000 MG PO BID Prescribed by: TROY BUCIO on 11/28/21 1029 Lisinopril (Lisinopril) 10 Mg Tablet, 10 MG PO DAILY, (Reported) Entered as Reported by: OMID ARROYO on 01/20/21 1318 Metformin HCl (Metformin HCl) 500 Mg Tablet, 500 MG PO DAILY, (Reported) Entered as Reported by: OMID ARROYO on 01/20/21 1318 Naproxen (Naprosyn) 500 Mg Tablet, 500 MG PO BID PRN for PAIN-MODERATE (5-7) Prescribed by: BEN NOVA on 11/17/21 1542 Omeprazole (Omeprazole) 40 Mg Capsule.dr, 40 MG PO DAILY Prescribed by: KARL DE LOS SANTOS on 01/22/21 1337 Pregabalin (Lyrica) 50 Mg Capsule, 50 MG PO DAILY, (Reported) Entered as Reported by: OMID ARROYO on 01/20/21 1318 Sucralfate (Carafate) 1 Gm Tablet, 1 GM PO ACHS, (Reported) Entered as Reported by: OMID ARROYO on 01/20/21 1318 Tramadol HCl (Tramadol HCl) 50 Mg Tablet, 50 MG PO Q4H PRN for PAIN-MILD (1-4), (Reported) Entered as Reported by: OMID ARROYO on 01/20/21 1318 Tramadol HCl (Tramadol HCl) 50 Mg Tablet, 50 MG PO Q6H PRN for PAIN Prescribed by: BEN NOVA on 11/17/21 1541 Tramadol HCl (Ultram) 50 Mg Tablet, 50 MG PO Q6H PRN for PAIN-BREAKTHROUGH Prescribed by: TROY BUCIO on 11/28/21 1030 Review of Systems Review of Systems Constitutional: No chills, No diaphoresis Eyes: Denies Blindness, Denies Blurred Vision Ears: Denies Dizziness, Denies Pain Nose: denies congestion, denies pain Mouth: denies clots, denies pain, denies swelling Throat: denies pain, denies swelling Respiratory: No cough, No hemoptysis All Other Systems Reviewed Negative Unless Noted: Yes Past Cespdno-Pdsuah-Ombpvb Hx Patient Social History Tobacco Use?: No Use of E-Cig and/or Vaping dev: No Substance use?: No Alcohol Use?: Yes Alcohol type: Beer, Hard Liquor Alcohol Frequency: Once in a while Pt feels they are or have been: No Immunizations Up To Date Tetanus Booster (TDap): Unknown Influenza Vaccine Up-to-Date: Yes; Up-to-Date First/Initial COVID19 Vaccinat: UNKNOW DATE Second COVID19 Vaccination Vladimir: UNKNOW DATE Third COVID19 Vaccination Date: YES Seasonal Allergies Seasonal Allergies: No Past Medical History Surgery/Hospitalization HX: PMH: DM, HTN, DENTAL SX: HERNIA REPAIR, APPY Surgeries: Yes Appendectomy, Gallbladder, Orthopedic Respiratory: No Cardiac: Yes (HEART CATH WITH NO INTERVENTIONS) Hypertension Neurological: No Reproductive Disorders: No Genitourinary: No Gastrointestinal: Yes Diverticulosis Musculoskeletal: No Endocrine: Yes Diabetes, Non-Insulin dep HEENT: Yes (Severe dental decay) Cancer: No Psychosocial: No Integumentary: No Blood Disorders: No Family Medical History No Pertinent Family Hx Physical Exam Vital Signs Vital Signs - First Documented 03/28/22 10:44 Temp 36.8 Pulse 90 Resp 20 B/P (MAP) 142/77 (98) Pulse Ox 98 O2 Delivery Room Air Height, Weight, BMI Height: 6'0" Weight: 208lbs. oz. 94.919301pi; 24.00 BMI Method:Stated General Appearance: WD/WN, no apparent distress Eyes: bilateral eye normal inspection, bilateral eye PERRL, bilateral eye EOMI Ears: bilateral ear auricle normal, bilateral ear canal normal, bilateral ear TM normal Mouth/Throat: other (Extensive dental caries without gingival swelling) Neck: non-tender, full range of motion Progress/Results/Core Measures Results/Orders Vital Signs/I&O 03/28/22 10:44 Temp 36.8 Pulse 90 Resp 20 B/P (MAP) 142/77 (98) Pulse Ox 98 O2 Delivery Room Air Blood Pressure Mean: 98 Progress Progress Note : Time: 11:13 Progress Note Review of K tracks reveals the patient receives significant doses of tramadol from [place] as well as his primary care provider. We will provide him with some adequate antibiotics and pain medication and instructions to go back to the dentist. Departure Impression Primary Impression: Dental caries Disposition: 01 HOME, SELF-CARE Condition: Stable Departure-Patient Inst. Decision time for Depature: 11:15 Referrals: THOR RED DDS NO,LOCAL PHYSICIAN (PCP) Primary Care Physician Patient Instructions: Tooth Decay, Adult (DC), Dental Pain (DC) Add. Discharge Instructions: Drink plenty of fluids. Probiotics twice a day until your teeth are fixed. Do not take more than half an hour of antibiotics. Augmentin 1 tablet twice a day with food. All discharge instructions reviewed with patient and/or family. Voiced understanding. Scripts Tramadol HCl (Tramadol HCl) 50 Mg Tablet 50 MG PO Q6H PRN for PAIN for 3 Days, #10 TAB 0 Refills Prov: HAN CASTRO 03/28/22 Amoxicillin/Potassium Clav (Amox Tr-K Clv 875-125 mg Tab) 875 Mg-125 Mg Tablet 1 EACH PO BID for 10 Days, #20 TAB 0 Refills Prov: HAN CASTRO 03/28/22 HAN CASTRO March 28, 2022 11:11
[2022-03-28] MEDS ORDERED: AMOX1TAB12 PO (11:17)
[2022-03-28] MEDS ORDERED: TRM50T PO (11:17)
[2022-03-28 11:20] VITALS: BP 142/77
== END 2022-03-28 11:23 | disposition home or self-care (01) ==
LOC: EDUNIT# 10:16 → ER 10:17
DX: K02.9 Dental caries, unspecified (principal)
CPT/HCPCS: 99282

== ENCOUNTER 2022-04-17 10:52 | Emergency (ER) | payer MEDICARE ==
[~2022-04-17] VITALS: Ht 182.8 cm; Wt 80.0 kg
[~2022-04-17 10:52] MED LIST changes: +AMOX1TAB12 PO
[2022-04-17] MEDS ORDERED: KETOROLAC 60 MG/2 ML VIAL IM ONE (11:15)
--- NOTE | 2022-04-17 11:19 | ED Back Pain ---
General Chief Complaint: Back Problems Stated Complaint: BACK PAIN Nursing Triage Note: PT AMBULATORY INTO ER WITHOUT DIFFICULTY WITH COMPLAINT OF LOWER BACK PAIN. PT STATES THAT HE WAS WALKING IN [place] YESTERDAY AND AND STEPPED IN HOLE. PT STATES THAT HE TWEAKED HIS BACK AND NEEDS TO KNOW HOW BAD IT IS. PAIN AT A 8/10. Source of Information: Patient History of Present Illness Date Seen by Provider: Apr 17, 2022 Time Seen by Provider: 11:14 Initial Comments This is a 72-year-old male who presents to the emergency room for evaluation of bilateral lower back pain. He states that he has chronic back pain and takes tramadol daily for but yesterday he was mowing the grass and stepped in a hole, causing him to twist his back. He did not have a fall but states that since then his chronic low back pain has been quite a bit worse. He did not attempt any therapy prior to arrival today. He denies any loss of bowel or bladder control, saddle anesthesia, fever, weakness or other new symptoms. Pain is currently a sharp 8 out of 10 that is worse with range of motion. Location: Lumbar Spine, Paraspinous Muscles Timing/Duration: 1 Day Severity: Moderate Pain/Injury Location: Back Allergies and Home Medications Allergies Coded Allergies: hydrocodone (Verified Allergy, Severe, ITCHING, 11/17/21) NKANo Known Allergies (Verified Allergy, Unknown, 01/22/07) Patient Home Medication List Home Medication List Reviewed: Yes Amoxicillin (Amoxicillin) 500 Mg Capsule, 1,000 MG PO BID Prescribed by: TROY BUCIO on 11/28/21 1029 Amoxicillin/Potassium Clav (Amox Tr-K Clv 875-125 mg Tab) 875 Mg-125 Mg Tablet, 1 EACH PO BID Prescribed by: HAN CASTRO on 03/28/22 1117 Lisinopril (Lisinopril) 10 Mg Tablet, 10 MG PO DAILY, (Reported) Entered as Reported by: OMID ARROYO on 01/20/21 1318 Metformin HCl (Metformin HCl) 500 Mg Tablet, 500 MG PO DAILY, (Reported) Entered as Reported by: OMID ARROYO on 01/20/21 1318 Methocarbamol (Methocarbamol) 750 Mg Tablet, 750 MG PO Q6-8HR Prescribed by: CYNDI DIAMOND on 04/17/22 1121 Methylprednisolone (Medrol Dose pack) 4 Mg Tab, 4 MG PO UD Prescribed by: CYNDI DIAMOND on 04/17/22 1121 Naproxen (Naprosyn) 500 Mg Tablet, 500 MG PO BID PRN for PAIN-MODERATE (5-7) Prescribed by: BEN NOVA on 11/17/21 1542 Omeprazole (Omeprazole) 40 Mg Capsule.dr, 40 MG PO DAILY Prescribed by: KARL DE LOS SANTOS on 01/22/21 1337 Pregabalin (Lyrica) 50 Mg Capsule, 50 MG PO DAILY, (Reported) Entered as Reported by: OMID ARROYO on 01/20/21 1318 Sucralfate (Carafate) 1 Gm Tablet, 1 GM PO ACHS, (Reported) Entered as Reported by: OMID ARROYO on 01/20/21 1318 Tramadol HCl (Tramadol HCl) 50 Mg Tablet, 50 MG PO Q4H PRN for PAIN-MILD (1-4), (Reported) Entered as Reported by: OMID ARROYO on 01/20/21 1318 Tramadol HCl (Tramadol HCl) 50 Mg Tablet, 50 MG PO Q6H PRN for PAIN Prescribed by: BEN NOVA on 11/17/21 1541 Tramadol HCl (Ultram) 50 Mg Tablet, 50 MG PO Q6H PRN for PAIN-BREAKTHROUGH Prescribed by: TROY BUCIO on 11/28/21 1030 Tramadol HCl (Tramadol HCl) 50 Mg Tablet, 50 MG PO Q6H PRN for PAIN Prescribed by: HAN CASTRO on 03/28/22 1118 Review of Systems Constitutional: no symptoms reported EENTM: no symptoms reported Respiratory: no symptoms reported Cardiovascular: no symptoms reported Gastrointestinal: no symptoms reported Musculoskeletal: back pain Skin: no symptoms reported Psychiatric/Neurological: No Symptoms Reported Past Hzuqjih-Wmjlts-Ffgnmi Hx Patient Social History Tobacco Use?: No Use of E-Cig and/or Vaping dev: No Substance use?: No Alcohol Use?: No Pt feels they are or have been: No Immunizations Up To Date Tetanus Booster (TDap): Unknown Influenza Vaccine Up-to-Date: Yes; Up-to-Date First/Initial COVID19 Vaccinat: UNKNOW DATE Second COVID19 Vaccination Vladimir: UNKNOW DATE Third COVID19 Vaccination Date: YES Seasonal Allergies Seasonal Allergies: No Past Medical History Surgery/Hospitalization HX: PMH: DM, HTN, DENTAL SX: HERNIA REPAIR, APPY Surgeries: Yes Appendectomy, Gallbladder, Orthopedic Respiratory: No Cardiac: Yes (HEART CATH WITH NO INTERVENTIONS) Hypertension Neurological: No Reproductive Disorders: No Genitourinary: No Gastrointestinal: Yes Diverticulosis Musculoskeletal: No Endocrine: Yes Diabetes, Non-Insulin dep HEENT: Yes (Severe dental decay) Cancer: No Psychosocial: No Integumentary: No Blood Disorders: No Family Medical History No Pertinent Family Hx Physical Exam Vital Signs Vital Signs - First Documented 04/17/22 11:03 Temp 36.4 Pulse 88 Resp 18 B/P (MAP) 156/89 (111) Pulse Ox 98 O2 Delivery Room Air Capillary Refill : Less Than 3 Seconds Height, Weight, BMI Height: 6'0" Weight: 208lbs. oz. 94.496578ov; 23.00 BMI Method:Stated General Appearance: No Apparent Distress HEENT: PERRL/EOMI Neck: Full Range of Motion, Normal Inspection, Non Tender Cardiovascular: Regular Rate, Rhythm Respiratory: Chest Non Tender, Lungs Clear Gastrointestinal: Normal Bowel Sounds Back: Other (Patient has a well-healed lumbar surgical scar. There is some sig nificant paraspinal muscle tenderness to palpation. Minimal midline tenderness. Full range of motion) Extremity: Normal Capillary Refill, Normal Range of Motion, Non Tender Neurologic/Psychiatric: Alert, Oriented x3, embroiderer hand II-XII Norm as Tested Skin: Normal Color, Warm/Dry Lymphatic: No Adenopathy Progress/Results/Core Measures Results/Orders My Orders Orders - ALMITA HAMILTON Ketorolac Injection (Toradol Injection) (04/17/22 11:30) Medications Given in ED Current Medications Medications Dose Ordered Sig/Dennis Route Start Time Stop Time Status Last Admin Dose Admin Ketorolac Tromethamine 30 mg ONCE ONCE IM 04/17/22 11:30 04/17/22 11:31 DC 04/17/22 11:56 30 MG Vital Signs/I&O 04/17/22 11:03 Temp 36.4 Pulse 88 Resp 18 B/P (MAP) 156/89 (111) Pulse Ox 98 O2 Delivery Room Air Blood Pressure Mean: 111 Departure Impression Primary Impression: Lumbar sprain Qualified Codes: S33.5XXA - Sprain of ligaments of lumbar spine, initial encounter Additional Impression: Chronic back pain Qualified Codes: M54.50 - Low back pain, unspecified; G89.29 - Other chronic pain Disposition: 01 HOME, SELF-CARE Condition: Improved Departure-Patient Inst. Decision time for Depature: 11:18 Referrals: [facility] [place] OSVALDO,LOCAL PHYSICIAN (PCP) Primary Care Physician Patient Instructions: Low Back Pain (DC) Add. Discharge Instructions: Please follow-up closely with your primary care doctor. If you have any severe changes or worsening of your symptoms I would like you to return to the emergency room for reevaluation. All discharge instructions reviewed with patient and/or family. Voiced understanding. Scripts Methylprednisolone (Medrol Dose pack) 4 Mg Tab 4 MG PO UD for 6 Days, #21 TAB as directed per dose pack Prov: ALMITA HAMILTON 04/17/22 Methocarbamol (Methocarbamol) 750 Mg Tablet 750 MG PO Q6-8HR PRN for back pain for 7 Days, #14 TAB 0 Refills Prov: ALMITA HAMILTON 04/17/22 ALMITA HAMILTON Apr 17, 2022 11:19
[2022-04-17] MEDS ORDERED: METH-732 PO ×2 (11:21→12:03)
[2022-04-17] MEDS ORDERED: NF-METHYLP PO ×2 (11:21→12:03)
[2022-04-17] MEDS ORDERED: KETOROLAC 30 MG/ML VIAL IM ONE (11:30)
[2022-04-17 12:00] VITALS: BP 156/89
== END 2022-04-17 11:59 | disposition home or self-care (01) ==
LOC: EDUNIT# 10:52 → ER 10:53
DX: S33.5XXA Sprain of ligaments of lumbar spine, initial encounter (principal); G89.29 Other chronic pain; X50.1XXA Overexertion from prolonged static or awkward postures, initial encounter
CPT/HCPCS: 99284

== ENCOUNTER 2022-05-15 12:41 | Emergency (ER) | payer MEDICARE ==
[~2022-05-15] VITALS: Ht 182.8 cm; Wt 83.9 kg
[~2022-05-15 12:41] MED LIST changes: +METH-732 PO; +NF-METHYLP PO
[2022-05-15 13:46] LABS: BASOPHILS % (AUTO) 1 % (0-10); EOSINOPHILS # (AUTO) 0.1 10^3/uL (0.0-0.3); EOSINOPHILS % (AUTO) 1 % (0-10); HEMATOCRIT 41 % (40-54); HEMOGLOBIN 14.1 g/dL (13.3-17.7); LYMPHOCYTES # (AUTO) 2.4 10^3/uL (1.0-4.0); LYMPHOCYTES % (AUTO) 29 % (12-44); MEAN CORPUSCULAR HEMOGLOBIN 31 pg (25-34); MEAN CORPUSCULAR HGB CONC 34 g/dL (32-36); MEAN CORPUSCULAR VOLUME 90 fL (80-99); MEAN PLATELET VOLUME 10.2 fL (9.0-12.2); MONOCYTES # (AUTO) 1.1 10^3/uL (0.0-1.0); MONOCYTES % (AUTO) 13 % (0-12); NEUTROPHILS # (AUTO) 4.6 10^3/uL (1.8-7.8); NEUTROPHILS % (AUTO) 56 % (42-75); PLATELET COUNT 265 10^3/uL (130-400); WHITE BLOOD COUNT 8.3 10^3/uL (4.3-11.0)
[2022-05-15 13:50] LABS: ALBUMIN 3.7 GM/DL (3.2-4.5)
[2022-05-15 13:51] LABS: POTASSIUM 4.1 MMOL/L (3.6-5.0)
[2022-05-15 13:52] LABS: CALCIUM 9.2 MG/DL (8.5-10.1)
[2022-05-15 13:55] LABS: BILIRUBIN,TOTAL 0.3 MG/DL (0.1-1.0)
[2022-05-15 13:57] LABS: CREATININE SERUM 1.34 MG/DL (0.60-1.30)
[2022-05-15] MEDS ORDERED: NS IV 1000 ML 1,000 ML IV SCH (14:15)
[2022-05-15] MEDS ORDERED: LIDOCAINE 2% VISCOUS 15 ML UDC PO ONE (16:00)
[2022-05-15] MEDS ORDERED: ANTACID SUSP 30 ML UDC (MYLANTA) PO ONE (16:00)
[2022-05-15] MEDS ORDERED: ONDANSETRON 4 MG/2 ML (SDV) Z0FRAN IVP ONE (16:00)
[2022-05-15 16:27] LABS: BILIRUBIN,URINE NEGATIVE (NEGATIVE); CLARITY,URINE CLEAR; COLOR,URINE YELLOW; GLUCOSE, URINE (UA) NEGATIVE (NEGATIVE); KETONES,URINE NEGATIVE (NEGATIVE); LEUKOCYTE ESTERASE ,URINE NEGATIVE (NEGATIVE); NITRITE,URINE NEGATIVE (NEGATIVE); PROTEIN,URINE NEGATIVE (NEGATIVE)
[2022-05-15 16:33] LABS: BACTERIA,URINE TRACE /HPF; WBC,URINE RARE /HPF
[2022-05-15] MEDS ORDERED: ALPRAZolam 0.25 MG (XANAX) TAB PO ONE (17:00)
[2022-05-15] MEDS ORDERED: ONDA4TAB11 PO (17:32)
[2022-05-15] MEDS ORDERED: OMEP20TA56 PO (17:32)
[2022-05-15 17:35] VITALS: BP 121/81
--- NOTE | 2022-05-15 17:35 | ED Abdominal Pain ---
General Chief Complaint: Abdominal/GI Problems Stated Complaint: ABD PAIN Nursing Triage Note: pt to room by wheelchair. pt states he started having sharp pain in the umbilical area yesterday with diarrhea x2 days and nausea yesterday. pt states he's had no vomiting, but dry heaves yesterday. pt states his abd pain is a 9/10. pt states he also has chronic back pain and does not know if that is "manifesting as abd pain." pt also reports having neck/right shoulder pain with a headache for a couple days Source of Information: Patient Exam Limitations: No Limitations History of Present Illness Date Seen by Provider: May 15, 2022 Time Seen by Provider: 13:39 Initial Comments This 72-year-old gentleman presents to the emergency room with central abdominal pain since yesterday. Pain waxes and wanes. He has had associated nausea, vomiting, and diarrhea. Those symptoms are not present at this moment. He denies fever or urinary changes. He took some gummy THC to try to treat the pain which was not effective. He also complains of chronic back pain. He reports not having a primary care provider in the [facility]. He had been seen other providers elsewhere before moving here. Allergies and Home Medications Allergies Coded Allergies: hydrocodone (Verified Allergy, Severe, ITCHING, 11/17/21) NKANo Known Allergies (Verified Allergy, Unknown, 01/22/07) Patient Home Medication List Home Medication List Reviewed: Yes Amoxicillin (Amoxicillin) 500 Mg Capsule, 1,000 MG PO BID Prescribed by: TROY BUCIO on 11/28/21 1029 Amoxicillin/Potassium Clav (Amox Tr-K Clv 875-125 mg Tab) 875 Mg-125 Mg Tablet, 1 EACH PO BID Prescribed by: HAN CASTRO on 03/28/22 1117 Lisinopril (Lisinopril) 10 Mg Tablet, 10 MG PO DAILY, (Reported) Entered as Reported by: OMID ARROYO on 01/20/21 1318 Metformin HCl (Metformin HCl) 500 Mg Tablet, 500 MG PO DAILY, (Reported) Entered as Reported by: OMID ARROYO on 01/20/21 1318 Methocarbamol (Methocarbamol) 750 Mg Tablet, 750 MG PO Q6-8HR PRN for back pain Prescribed by: CYNDI DIAMOND on 04/17/22 1203 Methylprednisolone (Medrol Dose pack) 4 Mg Tab, 4 MG PO UD Prescribed by: CYNDI DIAMOND on 04/17/22 1203 Naproxen (Naprosyn) 500 Mg Tablet, 500 MG PO BID PRN for PAIN-MODERATE (5-7) Prescribed by: BEN NOVA on 11/17/21 1542 Omeprazole (Omeprazole) 40 Mg Capsule.dr, 40 MG PO DAILY Prescribed by: KARL DE LOS SANTOS on 01/22/21 1337 Omeprazole (Omeprazole) 20 Mg Tablet.dr, 20 MG PO BID Prescribed by: TORY BUCIO on 05/15/22 1732 Ondansetron (Ondansetron Odt) 4 Mg Tab.rapdis, 4 MG PO Q4H PRN for N AUSEA/VOMITING Prescribed by: TROY BUCIO on 05/15/22 1732 Pregabalin (Lyrica) 50 Mg Capsule, 50 MG PO DAILY, (Reported) Entered as Reported by: OMID ARROYO on 01/20/21 1318 Sucralfate (Carafate) 1 Gm Tablet, 1 GM PO ACHS, (Reported) Entered as Reported by: OMID ARROYO on 01/20/21 1318 Tramadol HCl (Tramadol HCl) 50 Mg Tablet, 50 MG PO Q4H PRN for PAIN-MILD (1-4), (Reported) Entered as Reported by: OMID ARROYO on 01/20/21 1318 Tramadol HCl (Tramadol HCl) 50 Mg Tablet, 50 MG PO Q6H PRN for PAIN Prescribed by: BEN NOVA on 11/17/21 1541 Tramadol HCl (Ultram) 50 Mg Tablet, 50 MG PO Q6H PRN for PAIN-BREAKTHROUGH Prescribed by: TROY BUCIO on 11/28/21 1030 Tramadol HCl (Tramadol HCl) 50 Mg Tablet, 50 MG PO Q6H PRN for PAIN Prescribed by: HAN CASTRO on 03/28/22 1118 Review of Systems Review of Systems Constitutional: no symptoms reported EENTM: No Symptoms Reported Respiratory: No Symptoms Reported Cardiovascular: No Symptoms Reported Gastrointestinal: See HPI Genitourinary: No Symptoms Reported Musculoskeletal: see HPI Skin: no symptoms reported Psychiatric/Neurological: No Symptoms Reported Endocrine: No Symptoms Reported Past Caorojm-Bymgzg-Snnkiu Hx Patient Social History Tobacco Use?: No Use of E-Cig and/or Vaping dev: No Substance use?: No Alcohol Use?: Yes Alcohol Frequency: Once in a while Immunizations Up To Date Tetanus Booster (TDap): Unknown Influenza Vaccine Up-to-Date: Yes; Up-to-Date First/Initial COVID19 Vaccinat: UNKNOW DATE Second COVID19 Vaccination Vladimir: UNKNOW DATE Third COVID19 Vaccination Date: YES Seasonal Allergies Seasonal Allergies: No Past Medical History Surgery/Hospitalization HX: PMH: DM, HTN, DENTAL SX: HERNIA REPAIR, APPY Surgeries: Yes Abdominal (hernia), Appendectomy, Gallbladder, Orthopedic Respiratory: No Cardiac: Yes (HEART CATH WITH NO INTERVENTIONS) Hypertension Neurological: No Reproductive Disorders: No Genitourinary: No Gastrointestinal: Yes Diverticulosis Musculoskeletal: No Endocrine: Yes Diabetes, Non-Insulin dep HEENT: Yes (Severe dental decay) Cancer: No Psychosocial: No Integumentary: No Blood Disorders: No Family Medical History No Pertinent Family Hx Physical Exam Vital Signs Vital Signs - First Documented 05/15/22 13:08 Temp 36.1 Pulse 77 Resp 18 B/P (MAP) 105/69 (81) Pulse Ox 99 Capillary Refill : Height/Weight/BMI Height: 6'0" Weight: 208lbs. oz. 94.742318cj; 25.00 BMI Method:Stated General Appearance: WD/WN, mild distress, other (anxious) HEENT: PERRL/EOMI, normal ENT inspection Neck: normal inspection Respiratory: lungs clear, normal breath sounds, no respiratory distress Cardiovascular: regular rate, rhythm, no edema, no murmur Gastrointestinal: normal bowel sounds, soft, tenderness (upper central abdominal pain) Extremities: normal inspection, no pedal edema Neurologic/Psychiatric: no motor/sensory deficits, alert, normal mood/affect Skin: normal color, warm/dry Progress/Results/Core Measures Results/Orders Lab Results Laboratory Tests Test 05/15/22 13:18 05/15/22 16:21 Range/Units White Blood Count 8.3 4.3-11.0 10^3/uL Red Blood Count 4.59 4.30-5.52 10^6/uL Hemoglobin 14.1 13.3-17.7 g/dL Hematocrit 41 40-54 % Mean Corpuscular Volume 90 80-99 fL Mean Corpuscular Hemoglobin 31 25-34 pg Mean Corpuscular Hemoglobin Concent 34 32-36 g/dL Red Cell Distribution Width 15.4 H 10.0-14.5 % Platelet Count 265 130-400 10^3/uL Mean Platelet Volume 10.2 9.0-12.2 fL Immature Granulocyte % (Auto) 1 % Neutrophils (%) (Auto) 56 42-75 % Lymphocytes (%) (Auto) 29 12-44 % Monocytes (%) (Auto) 13 H 0-12 % Eosinophils (%) (Auto) 1 0-10 % Basophils (%) (Auto) 1 0-10 % Neutrophils # (Auto) 4.6 1.8-7.8 10^3/uL Lymphocytes # (Auto) 2.4 1.0-4.0 10^3/uL Monocytes # (Auto) 1.1 H 0.0-1.0 10^3/uL Eosinophils # (Auto) 0.1 0.0-0.3 10^3/uL Basophils # (Auto) 0.0 0.0-0.1 10^3/uL Immature Granulocyte # (Auto) 0.1 0.0-0.1 10^3/uL Sodium Level 138 135-145 MMOL/L Potassium Level 4.1 3.6-5.0 MMOL/L Chloride Level 101 98-107 MMOL/L Carbon Dioxide Level 22 21-32 MMOL/L Anion Gap 15 H 5-14 MMOL/L Blood Urea Nitrogen 28 H 7-18 MG/DL Creatinine 1.34 H 0.60-1.30 MG/DL Estimat Glomerular Filtration Rate 56 BUN/Creatinine Ratio 21 Glucose Level 116 H 70-105 MG/DL Calcium Level 9.2 8.5-10.1 MG/DL Corrected Calcium 9.4 8.5-10.1 MG/DL Total Bilirubin 0.3 0.1-1.0 MG/DL Aspartate Amino Transf (AST/SGOT) 37 H 5-34 U/L Alanine Aminotransferase (ALT/SGPT) 43 0-55 U/L Alkaline Phosphatase 87 40-136 U/L C-Reactive Protein High Sensitivity 0.03 0.00-0.50 MG/DL Total Protein 7.0 6.4-8.2 GM/DL Albumin 3.7 3.2-4.5 GM/DL Lipase 16 8-78 U/L Urine Color YELLOW Urine Clarity CLEAR Urine pH 6.0 5-9 Urine Specific [place] 1.025 H 1.016-1.022 Urine Protein NEGATIVE NEGATIVE Urine Glucose (UA) NEGATIVE NEGATIVE Urine Ketones NEGATIVE NEGATIVE Urine Nitrite NEGATIVE NEGATIVE Urine Bilirubin NEGATIVE NEGATIVE Urine Urobilinogen 0.2 < = 1.0 MG/DL Urine Leukocyte Esterase NEGATIVE NEGATIVE Urine RBC (Auto) NEGATIVE NEGATIVE Urine RBC NONE /HPF Urine WBC RARE /HPF Urine Crystals NONE /LPF Urine Bacteria TRACE /HPF Urine Casts PRESENT /LPF Urine Hyaline Casts 5-10 H /LPF Urine Mucus NEGATIVE /LPF Urine Culture Indicated NO My Orders Orders - TROY MANCIA MD Cbc With Automated Diff (05/15/22 13:40) Comprehensive Metabolic Panel (05/15/22 13:40) Hs C Reactive Protein (05/15/22 13:40) Lipase (05/15/22 13:40) Ua Culture If Indicated (05/15/22 13:40) Ed Iv/Invasive Line Start (05/15/22 13:40) Ns Iv 1000 Ml (Sodium Chloride 0.9%) (05/15/22 14:15) Ondansetron Injection (Zofran Injectio (05/15/22 16:00) Lidocaine 2% Viscous 15 Ml (Xylocaine Vi (05/15/22 16:00) Antacid Suspension (Mylanta Suspension (05/15/22 16:00) Alprazolam Tablet (Xanax Tablet) (05/15/22 17:00) Medications Given in ED Vital Signs/I&O 05/15/22 05/15/22 13:08 17:35 Temp 36.1 Pulse 77 76 Resp 18 B/P (MAP) 105/69 (81) 121/81 Pulse Ox 99 99 Blood Pressure Mean: 81 Progress Progress Note : Progress Note Patient appeared a bit dehydrated on the laboratory evaluation. Work-up was otherwise unremarkable. He was hydrated with a liter of saline. He was treated with GI cocktail and Zofran with modest improvement in his symptoms. CT scan was offered which at first he desired as he wanted to receive as much work-up as possible because he had no primary care provider. However, he became anxious and wanted to leave. He was given Xanax yet still was too anxious to stay. He was otherwise stable and was allowed discharged with return precautions. Departure Impression Primary Impression: Central abdominal pain Additional Impression: Nausea vomiting and diarrhea Disposition: 01 HOME, SELF-CARE Condition: Improved Departure-Patient Inst. Decision time for Depature: 17:30 Referrals: LARRY HOBBS MD [facility]/AAMIR MCKEON MD, DANIEL J MD NO,LOCAL PHYSICIAN (PCP) Primary Care Physician ABI PEREZ CHAD C MD SULLIVAN, WILLIAM J DO Patient Instructions: Abdominal Pain, Adult ED, Nausea and Vomiting, Adult ED Add. Discharge Instructions: Start with a clear liquid diet and gradually advance your diet with small quantities of bland food as tolerated. Start omeprazole twice daily and take for the next month. Discuss further use when you follow-up with a primary care provider. Avoid the following: Eating large meals, eating close to bedtime, caffeine, carbonation, chocolate, citrus fruits and juices, tomato products, mints, alcohol, tobacco, spicy foods, fatty/greasy foods, NSAID medications such as ibuprofen or naproxen, or anything else you know irritates your stomach. Establish with a primary care provider soon as possible. A list of providers is below for your convenience. Return to the emergency room if you have worsening symptoms despite following these instructions. All discharge instructions reviewed with patient and/or family. Voiced understanding. Scripts Omeprazole (Omeprazole) 20 Mg Tablet. 20 MG PO BID, #60 TAB Prov: TROY MANCIA MD 05/15/22 Ondansetron (Ondansetron Odt) 4 Mg Tab.rapdis 4 MG PO Q4H PRN for NAUSEA/VOMITING, #10 TAB Prov: TROY MANCIA MD 05/15/22 TROY MANCIA MD May 15, 2022 17:35
== END 2022-05-15 17:46 | disposition home or self-care (01) ==
LOC: EDUNIT# 12:41 → ER 12:42
DX: R11.2 Nausea with vomiting, unspecified (principal); R19.7 Diarrhea, unspecified; R10.84 Generalized abdominal pain; Z90.49 Acquired absence of other specified parts of digestive tract; Z28.310 Unvaccinated for COVID-19
CPT/HCPCS: 36415; 80053; 81000; 83690; 85025; 86141

== ENCOUNTER 2022-12-20 16:25 | Emergency (ER) | payer MEDICARE ==
[~2022-12-20] VITALS: Ht 182.8 cm; Wt 92.9 kg
[~2022-12-20 16:25] MED LIST changes: +OMEP20TA56 PO; +ONDA4TAB11 PO
[2022-12-20 16:43] VITALS: BP 114/100
--- NOTE | 2022-12-20 16:53 | ED Respiratory ---
General Chief Complaint: Respiratory Problems Stated Complaint: SOA Source: patient Exam Limitations: no limitations History of Present Illness Date Seen by Provider: Dec 20, 2022 Time Seen by Provider: 16:40 Initial Comments 72-year-old male presents with what he thinks are panic attacks. States he has a history of panic attacks. Reports a tightness in his abdomen when he gets up, reports dizziness and shortness of air with walking short distance. Also com plaining of dental pain and dental caries. Denies fevers, chest pain, nausea, vomiting, diarrhea. Patient is a poor historian. States he has a history of asthma as a child, has hypertension, and diabetes. States he currently takes metformin, lisinopril, and diuretic. States he may take other medications but does not know the names. Allergies and Home Medications Allergies Coded Allergies: hydrocodone (Verified Allergy, Severe, ITCHING, 11/17/21) NKANo Known Allergies (Verified Allergy, Unknown, 01/22/07) Patient Home Medication List Home Medication List Reviewed: Yes Amoxicillin (Amoxicillin) 500 Mg Capsule, 1,000 MG PO BID Prescribed by: TROY BUCIO on 11/28/21 1029 Amoxicillin/Potassium Clav (Amox Tr-K Clv 875-125 mg Tab) 875 Mg-125 Mg Tablet, 1 EACH PO BID Prescribed by: HAN CASTRO on 03/28/22 1117 Amoxicillin/Potassium Clav (Amox Tr-K Clv 875-125 mg Tab) 875 Mg-125 Mg Tablet, 1 EACH PO BID Prescribed by: Herlinda Villarreal on 12/20/222015 Lisinopril (Lisinopril) 10 Mg Tablet, 10 MG PO DAILY, (Reported) Entered as Reported by: OMID ARROYO on 01/20/211317 Lorazepam (Ativan) 0.5 Mg Tablet, 0.5 MG PO TID PRN for ANXIETY Prescribed by: Herlinda Villarreal on 12/20/222044 Metformin HCl (Metformin HCl) 500 Mg Tablet, 500 MG PO DAILY, (Reported) Entered as Reported by: OMID ARROYO on 01/20/21 131 Methocarbamol (Methocarbamol) 750 Mg Tablet, 750 MG PO Q6-8HR PRN for back pain Prescribed by: CYNDI DIAMOND on 04/17/22 1203 Methylprednisolone (Medrol Dose pack) 4 Mg Tab, 4 MG PO UD Prescribed by: CYNDI DIAMOND on 04/17/22 1203 Naproxen (Naprosyn) 500 Mg Tablet, 500 MG PO BID PRN for PAIN-MODERATE (5-7) Prescribed by: BEN NOVA on 11/17/21 1542 Omeprazole (Omeprazole) 40 Mg Capsule.dr, 40 MG PO DAILY Prescribed by: KARL DE LOS SANTOS on 01/22/21 1337 Omeprazole (Omeprazole) 20 Mg Tablet.dr, 20 MG PO BID Prescribed by: TROY BUCIO on 05/15/22 1732 Ondansetron (Ondansetron Odt) 4 Mg Tab.rapdis, 4 MG PO Q4H PRN for NAUSEA/VOMITING Prescribed by: TROY BUCIO on 05/15/22 1732 Pregabalin (Lyrica) 50 Mg Capsule, 50 MG PO DAILY, (Reported) Entered as Reported by: OMID ARROYO on 01/20/21 1318 Sucralfate (Carafate) 1 Gm Tablet, 1 GM PO ACHS, (Reported) Entered as Reported by: OMID ARROYO on 01/20/21 1318 Tramadol HCl (Tramadol HCl) 50 Mg Tablet, 50 MG PO Q4H PRN for PAIN-MILD (1-4), (Reported) Entered as Reported by: OMID ARROYO on 01/20/21 1318 Tramadol HCl (Tramadol HCl) 50 Mg Tablet, 50 MG PO Q6H PRN for PAIN Prescribed by: BEN NOVA on 11/17/21 1541 Tramadol HCl (Ultram) 50 Mg Tablet, 50 MG PO Q6H PRN for PAIN-BREAKTHROUGH Prescribed by: TROY BUCIO on 11/28/21 1030 Tramadol HCl (Tramadol HCl) 50 Mg Tablet, 50 MG PO Q6H PRN for PAIN Prescribed by: HAN CASTRO on 03/28/22 1118 Review of Systems Review of Systems Constitutional: see HPI Past Xvwtmfh-Vtduta-Mgsmvx Hx Patient Social History Tobacco Use?: No Substance use?: No Alcohol Use?: No Immunizations Up To Date Tetanus Booster (TDap): Unknown First/Initial COVID19 Vaccinat: UNKNOW DATE Second COVID19 Vaccination Vladimir: UNKNOW DATE Third COVID19 Vaccination Date: YES Seasonal Allergies Seasonal Allergies: No Past Medical History Surgery/Hospitalization HX: PMH: DM, HTN, DENTAL SX: HERNIA REPAIR, APPY Surgeries: Yes Abdominal, Appendectomy, Gallbladder, Orthopedic Respiratory: No Cardiac: Yes (HEART CATH WITH NO INTERVENTIONS) Hypertension Neurological: No Reproductive Disorders: No Genitourinary: No Gastrointestinal: Yes Diverticulosis Musculoskeletal: No Endocrine: Yes Diabetes, Non-Insulin dep HEENT: Yes (Severe dental decay) Cancer: No Psychosocial: No Integumentary: No Blood Disorders: No Family Medical History No Pertinent Family Hx Physical Exam Vital Signs - First Documented 12/20/22 16:43 Pulse 106 B/P (MAP) 114/100 (105) Pulse Ox 98 O2 Delivery Room Air Capillary Refill : Height: 6'0" Weight: 208lbs. oz. 94.245390fw; 25.00 BMI Method:Stated General Appearance: WD/WN, mild distress, other (Constantly moving, appears like tardive dyskinesia, denies psych medication use. States he is moving due to anxiety) HEENT: normal ENT inspection, other (Port dentition) Neck: supple, normal inspection Respiratory: lungs clear, normal breath sounds, no respiratory distress, no acc essory muscle use Cardiovascular: no edema, no gallop, no JVD, no murmur, tachycardia Gastrointestinal: normal bowel sounds, non tender, soft Extremities: normal range of motion, normal inspection Neurologic/Psychiatric: alert, normal mood/affect, oriented x 3 Skin: normal color, warm/dry Poor nursing home, missing multiple teeth. Multiple dental care. No obvious abscess. Focused Exam Lactate Level 12/20/22 17:20: Lactic Acid Level 1.18 Lactic Acid Level Laboratory Tests Test 12/20/22 17:20 Lactic Acid Level 1.18 MMOL/L (0.50-2.00) Progress/Results/Core Measures Suspected Sepsis SIRS Temperature: Pulse: Respiratory Rate: Laboratory Tests 12/20/22 16:35: White Blood Count 15.5H Blood Pressure / Mean: 12/20/22 17:20: Lactic Acid Level 1.18 Laboratory Tests 12/20/22 16:35: Creatinine 1.89H, INR Comment 1.1, Platelet Count 307, Total Bilirubin 1.1H Results/Orders Lab Results Laboratory Tests Test 12/20/22 16:35 12/20/22 17:20 12/20/22 19:01 Range/Units White Blood Count 15.5 H 4.3-11.0 10^3/uL Red Blood Count 4.33 4.30-5.52 10^6/uL Hemoglobin 13.7 13.3-17.7 g/dL Hematocrit 40 40-54 % Mean Corpuscular Volume 92 80-99 fL Mean Corpuscular Hemoglobin 32 25-34 pg Mean Corpuscular Hemoglobin Concent 35 32-36 g/dL Red Cell Distribution Width 13.9 10.0-14.5 % Platelet Count 307 130-400 10^3/uL Mean Platelet Volume 10.0 9.0-12.2 fL Immature Granulocyte % (Auto) 0 % Neutrophils (%) (Auto) 68 42-75 % Lymphocytes (%) (Auto) 19 12-44 % Monocytes (%) (Auto) 11 0-12 % Eosinophils (%) (Auto) 1 0-10 % Basophils (%) (Auto) 0 0-10 % Neutrophils # (Auto) 10.6 H 1.8-7.8 X 10^3 Lymphocytes # (Auto) 3.0 1.0-4.0 X 10^3 Monocytes # (Auto) 1.7 H 0.0-1.0 X 10^3 Eosinophils # (Auto) 0.1 0.0-0.3 10^3/uL Basophils # (Auto) 0.1 0.0-0.1 10^3/uL Immature Granulocyte # (Auto) 0.1 0.0-0.1 10^3/uL Neutrophils % (Manual) 68 % Lymphocytes % (Manual) 26 % Monocytes % (Manual) 5 % Band Neutrophils 1 % Platelet Estimate NORMAL Clumped Platelets Blood Morphology Comment NORMAL Prothrombin Time 14.4 12.2-14.7 SEC INR Comment 1.1 0.8-1.4 Activated Partial Thromboplast Time 27 24-35 SEC D-Dimer 0.72 H 0.00-0.49 UG/ML Sodium Level 138 135-145 MMOL/L Potassium Level 4.2 3.6-5.0 MMOL/L Chloride Level 104 98-107 MMOL/L Carbon Dioxide Level 22 21-32 MMOL/L Anion Gap 12 5-14 MMOL/L Blood Urea Nitrogen 48 H 7-18 MG/DL Creatinine 1.89 H 0.60-1.30 MG/DL Estimat Glomerular Filtration Rate 37 BUN/Creatinine Ratio 25 Glucose Level 131 H 70-105 MG/DL Calcium Level 9.4 8.5-10.1 MG/DL Corrected Calcium 9.2 8.5-10.1 MG/DL Total Bilirubin 1.1 H 0.1-1.0 MG/DL Aspartate Amino Transf (AST/SGOT) 129 H 5-34 U/L Alanine Aminotransferase (ALT/SGPT) 83 H 0-55 U/L Alkaline Phosphatase 73 40-136 U/L Troponin I < 0.028 <0.028 NG/ML C-Reactive Protein High Sensitivity 1.25 H 0.00-0.50 MG/DL B-Type Natriuretic Peptide 28.5 <100.0 PG/ML Total Protein 8.0 6.4-8.2 GM/DL Albumin 4.2 3.2-4.5 GM/DL Lactic Acid Level 1.18 0.50-2.00 MMOL/L Urine Color YELLOW Urine Clarity CLEAR Urine pH 6.0 5-9 Urine Specific [place] 1.025 H 1.016-1.022 Urine Protein TRACE H NEGATIVE Urine Glucose (UA) NEGATIVE NEGATIVE Urine Ketones TRACE H NEGATIVE Urine Nitrite NEGATIVE NEGATIVE Urine Bilirubin NEGATIVE NEGATIVE Urine Urobilinogen 0.2 < = 1.0 MG/DL Urine Leukocyte Esterase NEGATIVE NEGATIVE Urine RBC (Auto) 2+ H NEGATIVE Urine RBC RARE /HPF Urine WBC RARE /HPF Urine Squamous Epithelial Cells NONE /HPF Urine Crystals NONE /LPF Urine Bacteria TRACE /HPF Urine Casts PRESENT /LPF Urine Hyaline Casts 2-5 H /LPF Urine Mucus SMALL H /LPF Urine Culture Indicated NO Influenza Type A (RT-PCR) Not Detected Not Detecte Influenza Type B (RT-PCR) Not Detected Not Detecte SARS-CoV-2 RNA (RT-PCR) Not Detected Not Detecte My Orders Orders - HERLINDA VILLARREAL [employer] Cbc With Automated Diff (12/20/22 16:46) Comprehensive Metabolic Panel (12/20/22 16:46) Protime With Inr (12/20/22 16:46) Partial Thromboplastin Time (12/20/22 16:46) Chest 1 View, Ap/Pa Only (12/20/22 16:46) Ed Iv/Invasive Line Start (12/20/22 16:46) Lactic Acid Analyzer (12/20/22 16:46) Fibrin Degradation Products (12/20/22 16:46) Bnp Christianne (12/20/22 16:46) Manual Differential (12/20/22 16:35) Ct Angio Chest W (R/O Pe) (12/20/22 17:27) Troponin I [place] (12/20/22 17:28) Ekg Tracing (12/20/22 17:32) Iohexol Injection (Omnipaque 350 Mg/Ml 1 (12/20/22 17:45) Received Contrast (Hold Metformin- Contr (12/20/22 17:45) Ns (Ivpb) (Sodium Chloride 0.9% Ivpb Bag (12/20/22 17:45) Ns Iv 500 Ml (Sodium Chloride 0.9%) (12/20/22 18:45) Ns Iv 500 Ml (Sodium Chloride 0.9%) (12/20/22 19:00) Ns Iv 1000 Ml (Sodium Chloride 0.9%) (12/20/22 19:00) Hs C Reactive Protein (12/20/22 18:57) Covid 19 Inhouse Test (12/20/22 18:58) Influenza A And B By Pcr (12/20/22 18:58) Ua Culture If Indicated (12/20/22 18:58) Lorazepam Injection (Ativan Injection) (12/20/22 20:15) Medications Given in ED Vital Signs/I&O 12/20/22 16:43 Pulse 106 B/P (MAP) 114/100 (105) Pulse Ox 98 O2 Delivery Room Air Capillary Refill : Progress Note #1: Time: 16:54 Progress Note Patient seen evaluated, sitting on bed, appears anxious, constantly moving, appears like tardive dyskinesia, although he denies any psych medication history. Work up initiated including CBC, CMP, coags, D-dimer, chest x-ray, sputum culture, lactic acid EKG from [facility] shows sinus arrhythmia. Progress Note #2: Time: 17:32 Progress Note Labs reviewed. CBC shows elevated WBC at 15.5. CMP shows elevated BUN 48, creatinine 1.89, GFR 37, total bili 1.1, AST elevated 129, ALT elevated 83. Coags negative. D-dimer elevated at 0.72, CT angio chest ordered. Troponin and EKG ordered. Progress Note #3: Time: 18:[address] reviewed. Negative for PE. Small esophageal hernia noted with wall thickening in the GE junction, as well as possible thickening of the proximal gastric body wall. Will order COVID, flu and CRP to further evaluate elevated WBC. More IV fluids also ordered for post CT contrast. Troponin negative. Progress Note #4: Time: 20:08 Progress Note Results discussed with patient. Patient states that he has a hiatal hernia and is currently on Protonix 40 mg once a day. Instructed patient to follow-up with primary care provider regarding wall thickening for an endoscopy. Instructed patient to obtain a blood draw of his kidney functioning in 1 week, and to drink a lot of water over the next week. We will treat for dental infection. Give him 1 dose of Ativan here and a short prescription. Patient given discharge directions and return precautions. ECG Initial ECG Impression Date: Dec 20, 2022 Initial ECG Impression Time: 17:55 Initial ECG Rate: 93 Initial ECG Rhythm: Normal Sinus Initial ECG Intervals: Normal Initial ECG Impression: Normal Initial ECG Comparisson: Unchanged Diagnostic Imaging Diagonstic Imaging: Xray Plain Films/CT/US/NM/MRI: chest Comments [facility], [place] NAME: ELHAM JUAN [facility] REC#: [id number] PT STATUS: REG ER : 1950 PHYSICIAN: HERLINDA VILLARREAL APRN ADMIT DATE: 12/20/22/ER Signed Date of Exam:12/20/22 CHEST 1 VIEW, AP/PA ONLY HISTORY: Shortness of air. COMPARISON: 11/12/2019. TECHNIQUE: Frontal view of the chest. FINDINGS: There is stable chronic scarring in the lung bases. There is no pleural effusion or pneumothorax. No new consolidation is seen. The cardiac silhouette is stable in size. IMPRESSION: 1. No acute pulmonary abnormality. Dictated by: Dictated on workstation # [id number] Dict: 12/20/22 1659 Trans: 12/20/229 AS6 [id number] Interpreted by: GAY GIVENS MD Electronically signed by: GAY GIVENS MD 12/20/229 Diagonstic Imaging: CT Plain Films/CT/US/NM/MRI: chest Comments [facility]. [place], [place] NAME: ELHAM JUAN [facility] REC#: [id number] PT STATUS: REG ER : 1950 PHYSICIAN: HERLINDA VILLARREAL APRN ADMIT DATE: 12/20/22/ER Signed Date of Exam:12/20/22 CT ANGIO CHEST W (R/O PE) INDICATION: 72-year-old male, shortness of breath due to panic attack, started 4 days ago. TECHNIQUE: CT imaging of the chest following the administration of intravenous contrast. Multiplanar including MIP reformatted images. Auto Exposure Controls were utilized during the CT exam to meet ALARA standards for radiation dose reduction. CORRELATION: None FINDINGS: Examination compromised by motion artifact. The heart size is within normal limits and without disproportionate right heart strain. Coronary artery calcification present. Thoracic aorta without aneurysm or dissection. A few shotty but non-pathologically enlarged mediastinal lymph nodes are present. Small esophageal hernia with minimal wall thickening in the GE junction. Given phase of contrast bolus, limitation of assessment of the pulmonary arteries. However, no significant pulmonary artery filling defect is suggested. Smaller peripheral emboli however could go undetected. The lung odell are clear of infiltrate. No significant pleural effusion. There are cholecystectomy clips. Question asymmetric wall thickening about the proximal stomach. This portion of the stomach is somewhat folded on itself. Osseous structures demonstrate advanced degenerative changes through the visualized thoracic spine. No acute bony abnormality. IMPRESSION: 1. . No CTA evidence for pulmonary embolism, acute aortic syndrome or acute abnormality of the chest. 2. Small esophageal hernia with wall thickening in the GE junction. Additionally, there is questionable thickening of the proximal gastric body wall. Correlation for any potential symptoms. If further assessment is desired, endoscopy would be recommended. Dictated by: Dictated on workstation # [id number] Dict: 12/20/221824 Trans: 12/20/221933 [facility] [id number] Interpreted by: JOSE HAND DO Electronically signed by: JOSE HAND DO 12/20/221933 Departure Impression Primary Impression: Dental decay Additional Impression: Hiatal hernia Disposition: 01 HOME, SELF-CARE Condition: Stable Departure-Patient Inst. Decision time for Depature: 20:13 Referrals: [facility] (PCP/Family) Primary Care Physician Patient Instructions: Tooth Decay, Adult Add. Discharge Instructions: Complete full course of antibiotic as directed. Return in 1 week to have your blood drawn. Results will be sent to Dr. Stevenson. Drink lots of water this week. You will need an endoscopy, discuss this with Dr. Stevenson. Return for fever, worsening shortness of breath, chest pain, or any other new, concerning, or worsening symptoms. All discharge instructions reviewed with patient and/or family. Voiced understanding. Scripts Lorazepam (Ativan) 0.5 Mg Tablet 0.5 MG PO TID PRN for ANXIETY, #10 TAB 0 Refills Prov: HERLINDA VILLARREAL APRN 12/20/22 Amoxicillin/Potassium Clav (Amox Tr-K Clv 875-125 mg Tab) 875 Mg-125 Mg Tablet 1 EACH PO BID for 7 Days, #14 TAB Prov: HERLINDA VILLARREAL APRN 12/20/22 HERLINDA VILLARREAL APRN Dec 20, 2022 16:53
[2022-12-20 16:54] LABS: BASOPHILS # (AUTO) 0.1 10^3/uL (0.0-0.1); BASOPHILS % (AUTO) 0 % (0-10); EOSINOPHILS # (AUTO) 0.1 10^3/uL (0.0-0.3); EOSINOPHILS % (AUTO) 1 % (0-10); HEMATOCRIT 40 % (40-54); HEMOGLOBIN 13.7 g/dL (13.3-17.7); LYMPHOCYTES % (AUTO) 19 % (12-44); MEAN CORPUSCULAR HEMOGLOBIN 32 pg (25-34); MEAN CORPUSCULAR HGB CONC 35 g/dL (32-36); MEAN CORPUSCULAR VOLUME 92 fL (80-99); MONOCYTES # (AUTO) 1.7 X 10^3 (0.0-1.0); MONOCYTES % (AUTO) 11 % (0-12); NEUTROPHILS # (AUTO) 10.6 X 10^3 (1.8-7.8); NEUTROPHILS % (AUTO) 68 % (42-75); PLATELET COUNT 307 10^3/uL (130-400); WHITE BLOOD COUNT 15.5 10^3/uL (4.3-11.0)
[2022-12-20 16:57] LABS: ALBUMIN 4.2 GM/DL (3.2-4.5)
[2022-12-20 16:58] LABS: POTASSIUM 4.2 MMOL/L (3.6-5.0)
[2022-12-20 16:59] LABS: CALCIUM 9.4 MG/DL (8.5-10.1)
[2022-12-20 17:02] LABS: BILIRUBIN,TOTAL 1.1 MG/DL (0.1-1.0); FIBRIN DEGRADATION PRODUCTS 0.72 UG/ML (0.00-0.49); INR 1.1 (0.8-1.4); PROTHROMBIN TIME PATIENT 14.4 SEC (12.2-14.7)
--- NOTE | 2022-12-20 17:02 | Diagnostic Imaging Report ---
HISTORY: Shortness of air. COMPARISON: 11/12/2019. TECHNIQUE: Frontal view of the chest. FINDINGS: There is stable chronic scarring in the lung bases. There is no pleural effusion or pneumothorax. No new consolidation is seen. The cardiac silhouette is stable in size. IMPRESSION: 1. No acute pulmonary abnormality. Dictated by: Dictated on workstation # [id number]
[2022-12-20 17:04] LABS: CREATININE SERUM 1.89 MG/DL (0.60-1.30)
[2022-12-20 17:42] LABS: BAND NEUTROPHILS 1 %; LYMPHOCYTES % (MANUAL) 26 %; MONOCYTES % (MANUAL) 5 %; NEUTROPHILS % (MANUAL) 68 %; PLATELET ESTIMATE NORMAL; RBC MORPH NORMAL
[2022-12-20] MEDS ORDERED: HOLD METFORMIN - RECEIVED CONTRAST 20 ML VIAL IV SCH (17:45)
[2022-12-20] MEDS ORDERED: NS 100 ML (IVPB) BAG IV ONE (17:45)
[2022-12-20] MEDS ORDERED: IOHEXOL 350 MG/ML 100 ML (OMNIPAQUE 350) VIAL IV ONE (17:45)
--- NOTE | 2022-12-20 18:42 | Diagnostic Imaging Report ---
INDICATION: 72-year-old male, shortness of breath due to panic attack, started 4 days ago. TECHNIQUE: CT imaging of the chest following the administration of intravenous contrast. Multiplanar including MIP reformatted images. Auto Exposure Controls were utilized during the CT exam to meet ALARA standards for radiation dose reduction. CORRELATION: None FINDINGS: Examination compromised by motion artifact. The heart size is within normal limits and without disproportionate right heart strain. Coronary artery calcification present. Thoracic aorta without aneurysm or dissection. A few shotty but non-pathologically enlarged mediastinal lymph nodes are present. Small esophageal hernia with minimal wall thickening in the GE junction. Given phase of contrast bolus, limitation of assessment of the pulmonary arteries. However, no significant pulmonary artery filling defect is suggested. Smaller peripheral emboli however could go undetected. The lung odell are clear of infiltrate. No significant pleural effusion. There are cholecystectomy clips. Question asymmetric wall thickening about the proximal stomach. This portion of the stomach is somewhat folded on itself. Osseous structures demonstrate advanced degenerative changes through the visualized thoracic spine. No acute bony abnormality. IMPRESSION: 1. . No CTA evidence for pulmonary embolism, acute aortic syndrome or acute abnormality of the chest. 2. Small esophageal hernia with wall thickening in the GE junction. Additionally, there is questionable thickening of the proximal gastric body wall. Correlation for any potential symptoms. If further assessment is desired, endoscopy would be recommended. Dictated by: Dictated on workstation # [id number]
[2022-12-20] MEDS ORDERED: NS IV 500 ML 500 ML IV ONE ×2 (18:45→19:00)
[2022-12-20] MEDS ORDERED: NS IV 1000 ML 1,000 ML IV SCH (19:00)
[2022-12-20 19:12] LABS: BILIRUBIN,URINE NEGATIVE (NEGATIVE); CLARITY,URINE CLEAR; COLOR,URINE YELLOW; GLUCOSE, URINE (UA) NEGATIVE (NEGATIVE); KETONES,URINE TRACE (NEGATIVE); LEUKOCYTE ESTERASE ,URINE NEGATIVE (NEGATIVE); NITRITE,URINE NEGATIVE (NEGATIVE); PROTEIN,URINE TRACE (NEGATIVE)
[2022-12-20 19:32] LABS: BACTERIA,URINE TRACE /HPF; RBC,URINE RARE /HPF; WBC,URINE RARE /HPF
[2022-12-20] MEDS ORDERED: LORazepam INJ 2 MG/ML (ATIVAN) VIAL IVP ONE (20:15)
[2022-12-20] MEDS ORDERED: AMOX1TAB12 PO (20:16)
[2022-12-20] MEDS ORDERED: LORA-404 PO (20:45)
== END 2022-12-20 21:17 | disposition home or self-care (01) ==
LOC: EDUNIT# 16:25 → ER 16:27
DX: K02.9 Dental caries, unspecified (principal); K44.9 Diaphragmatic hernia without obstruction or gangrene; R74.01 Elevation of levels of liver transaminase levels; D72.829 Elevated white blood cell count, unspecified; R79.89 Other specified abnormal findings of blood chemistry; R79.1 Abnormal coagulation profile; I10 Essential (primary) hypertension; E11.9 Type 2 diabetes mellitus without complications; Z20.822 Contact with and (suspected) exposure to COVID-19; Z79.84 Long term (current) use of oral hypoglycemic drugs; Z79.899 Other long term (current) drug therapy
CPT/HCPCS: 36415; 71045; 71275; 80053; 81000; 83605; 83880; 84484; 85007; 85027; 85379; 85610; 85730; 86141; 87636; 93005

== ENCOUNTER 2023-01-26 10:43 | Emergency (ER) | payer MEDICARE ==
[~2023-01-26] VITALS: Ht 182 cm; Wt 95.3 kg
[~2023-01-26 10:43] MED LIST changes: +LORA-404 PO
[2023-01-26] MEDS ORDERED: LORazepam 0.5 MG (ATIVAN) TABLET PO ONE (12:30)
--- NOTE | 2023-01-26 12:39 | ED General ---
General Chief Complaint: Psych/Social Disorder Stated Complaint: SLEEP DEPRIVATION Nursing Triage Note: pt encouraged to come to ED by [facility] for anxiety attack. pt has been without his ativan for several weeks. reports pt hasn't slept in 4 days. pt extremely restless and thrashing about in bed. Source of Information: Patient, Family, Old Records Exam Limitations: Other (hightend anxiety) (MACY HECTOR) History of Present Illness Date Seen by Provider: Jan 26, 2023 Time Seen by Provider: 11:55 Initial Comments Mr. Vargas is a 72 yo M with PMH of anxiety, HTN, T2DM, GERD and Hx of opioid abuse who present to the ED accompanied by his ex- who assists in his care with complaint of 3days inability to sleep and restless anxiety. Pt is unable to sit still but is pleasant and compliant with instructions. His HPI is fragmented due to his current state of heightened anxiety, he does endorse dizziness, cough, SOA and feeling like there is something stuck in his throat, particularly on the right sided as well as pain from his jaw associated with de ntal carries which prevents him from eating and drinking. He endorses taking Metformin, Lisinopril and Protonix this am but has been out of Ativan now for a few days. He last saw Kiana Chu 2-3wks ago but states that he only receives "like 20 Ativan at a time and that is not enough". He does not currently have a follow up appt. scheduled. His Ex- is a bedside and contributes to the history and noted diaphoresis over the last 24hrs, though his not currently diaphoretic, he does appear dehydrated and has not urinated yet today, she is also unsure about which medications he is taking and concerned about possible drug abuse. He denies F/C/V but does endorse diarrhea & nausea. Timing/Duration: 2-3 Days, Getting Worse (MACY HECTOR) Allergies and Home Medications Allergies Coded Allergies: hydrocodone (Verified Allergy, Severe, ITCHING, 11/17/21) NKANo Known Allergies (Verified Allergy, Unknown, 01/22/07) Patient Home Medication List Home Medication List Reviewed: Yes (DARBY YBARRA MD) Amoxicillin (Amoxicillin) 500 Mg Capsule, 1,000 MG PO BID Prescribed by: TROY BUCIO on 11/28/21 1029 Amoxicillin/Potassium Clav (Amox Tr-K Clv 875-125 mg Tab) 875 Mg-125 Mg Tablet, 1 EACH PO BID Prescribed by: HAN CASTRO on 03/28/22 1117 Amoxicillin/Potassium Clav (Amox Tr-K Clv 875-125 mg Tab) 875 Mg-125 Mg Tablet, 1 EACH PO BID Prescribed by: Herlinda Ramos on 12/20/222015 Lisinopril (Lisinopril) 10 Mg Tablet, 10 MG PO DAILY, (Reported) Entered as Reported by: OMID ARROYO on 01/20/21 131 Lorazepam (Ativan) 0.5 Mg Tablet, 0.5 MG PO TID PRN for ANXIETY Prescribed by: Herlinda Ramos on 12/20/222044 Metformin HCl (Metformin HCl) 500 Mg Tablet, 500 MG PO DAILY, (Reported) Entered as Reported by: OMID ARROYO on 01/20/21 1318 Methocarbamol (Methocarbamol) 750 Mg Tablet, 750 MG PO Q6-8HR PRN for back pain Prescribed by: CYNDI DIAMOND on 04/17/22 1203 Methylprednisolone (Medrol Dose pack) 4 Mg Tab, 4 MG PO UD Prescribed by: CYNDI DIAMOND on 04/17/22 1203 Naproxen (Naprosyn) 500 Mg Tablet, 500 MG PO BID PRN for PAIN-MODERATE (5-7) Prescribed by: BEN NOVA on 11/17/21 1542 Omeprazole (Omeprazole) 40 Mg Capsule.dr, 40 MG PO DAILY Prescribed by: KARL DE LOS SANTOS on 01/22/21 1337 Omeprazole (Omeprazole) 20 Mg Tablet.dr, 20 MG PO BID Prescribed by: TROY BUCIO on 05/15/22 1732 Ondansetron (Ondansetron Odt) 4 Mg Tab.rapdis, 4 MG PO Q4H PRN for NAUSEA/VOMITING Prescribed by: TROY BUCIO on 05/15/22 1732 Pregabalin (Lyrica) 50 Mg Capsule, 50 MG PO DAILY, (Reported) Entered as Reported by: OMID ARROYO on 01/20/21 1318 Sucralfate (Carafate) 1 Gm Tablet, 1 GM PO ACHS, (Reported) Entered as Reported by: OMID ARROYO on 01/20/21 1318 Tramadol HCl (Tramadol HCl) 50 Mg Tablet, 50 MG PO Q4H PRN for PAIN-MILD (1-4), (Reported) Entered as Reported by: OMID ARROYO on 01/20/21 1318 Tramadol HCl (Tramadol HCl) 50 Mg Tablet, 50 MG PO Q6H PRN for PAIN Prescribed by: BEN NOVA on 11/17/21 1541 Tramadol HCl (Ultram) 50 Mg Tablet, 50 MG PO Q6H PRN for PAIN-BREAKTHROUGH Prescribed by: TROY BUCIO on 11/28/21 1030 Tramadol HCl (Tramadol HCl) 50 Mg Tablet, 50 MG PO Q6H PRN for PAIN Prescribed by: HAN CASTRO on 03/28/22 1118 Review of Systems Review of Systems Constitutional: No chills; diaphoresis, dizziness; No fever (MACY HECTOR) Constitutional: see HPI EENTM: dental problems, nose congestion Respiratory: cough Cardiovascular: no symptoms reported Gastrointestinal: no symptoms reported Genitourinary: decreased output Musculoskeletal: no symptoms reported Skin: no symptoms reported Psychiatric/Neurological: Anxiety, Other (insomnia) (DARBY YBARRA MD) Past Fwnesns-Htmdpa-Ubcpjl Hx Patient Social History Tobacco Use?: No Substance use?: Yes Substance type: Marijuana Pt feels they are or have been: No (MACY HECTOR) Immunizations Up To Date Tetanus Booster (TDap): Unknown Influenza Vaccine Up-to-Date: No; Not Current First/Initial COVID19 Vaccinat: UNKNOW DATE Second COVID19 Vaccination Vladimir: UNKNOW DATE Third COVID19 Vaccination Date: YES (MACY HECTOR) Seasonal Allergies Seasonal Allergies: No (MACY HECTOR) Past Medical History Surgery/Hospitalization HX: PMH: DM, HTN, DENTAL SX: HERNIA REPAIR, APPY Surgeries: Yes Abdominal, Appendectomy, Gallbladder, Orthopedic Respiratory: No Cardiac: Yes (HEART CATH WITH NO INTERVENTIONS) Hypertension Neurological: No Reproductive Disorders: No Genitourinary: No Gastrointestinal: Yes Diverticulosis Musculoskeletal: No Endocrine: Yes Diabetes, Non-Insulin dep HEENT: Yes (Severe dental decay) Cancer: No Psychosocial: No Integumentary: No Blood Disorders: No (MACY HETCOR) Family Medical History No Pertinent Family Hx (MACY HECTOR) Physical Exam Vital Signs Vital Signs - First Documented 01/26/23 11:23 Temp 36.9 Pulse 97 Resp 35 B/P (MAP) 113/86 (95) Pulse Ox 99 O2 Delivery Room Air (DARBY YBARRA MD) Vital Signs Capillary Refill : Less Than 3 Seconds (MACY HECTOR) Height, Weight, BMI Height: 6'0" Weight: 208lbs. oz. 94.921330mv; 28.00 BMI Method:Stated (MACY HECTOR) General Appearance: WD/WN, Anxious, Other (appears intoxicated on a stimulant substance) Eyes: Bilateral Eye Normal Inspection, Bilateral Eye PERRL, Bilateral Eye EOMI HEENT: PERRL/EOMI, Pharynx Normal, Other (dry mucosa; multiple carious/necrotic teeth) Neck: Normal Inspection Respiratory: Lungs Clear, Normal Breath Sounds, No Accessory Muscle Use, No Respiratory Distress Cardiovascular: Regular Rate, Rhythm, Normal Peripheral Pulses, Tachycardia (98bpm) Gastrointestinal: Non Tender, Soft Extremity: Normal Range of Motion Neurologic/Psychiatric: Alert, Oriented x3, No Motor/Sensory Deficits, automatic tire tester II- XII Norm as Tested, Other (anxious agitated almost pressures speech) Skin: Normal Color, Warm/Dry (DARBY YBARRA MD) Progress/Results/Core Measures Suspected Sepsis SIRS Temperature: Pulse: 97 Respiratory Rate: 35 Blood Pressure 113 /86 Mean: 95 (MACY HECTOR) Results/Orders Lab Results Laboratory Tests Test 01/26/23 12:32 01/26/23 13:30 01/26/23 14:23 Range/Units Influenza Type A (RT-PCR) Not Detected Not Detecte Influenza Type B (RT-PCR) Not Detected Not Detecte SARS-CoV-2 RNA (RT-PCR) Detected H Not Detecte White Blood Count 12.9 H 4.3-11.0 10^3/uL Red Blood Count 4.34 4.30-5.52 10^6/uL Hemoglobin 13.9 13.3-17.7 g/dL Hematocrit 39 L 40-54 % Mean Corpuscular Volume 90 80-99 fL Mean Corpuscular Hemoglobin 32 25-34 pg Mean Corpuscular Hemoglobin Concent 36 32-36 g/dL Red Cell Distribution Width 13.4 10.0-14.5 % Platelet Count 292 130-400 10^3/uL Mean Platelet Volume 10.4 9.0-12.2 fL Immature Granulocyte % (Auto) 1 % Neutrophils (%) (Auto) 74 42-75 % Lymphocytes (%) (Auto) 10 L 12-44 % Monocytes (%) (Auto) 15 H 0-12 % Eosinophils (%) (Auto) 1 0-10 % Basophils (%) (Auto) 1 0-10 % Neutrophils # (Auto) 9.5 H 1.8-7.8 10^3/uL Lymphocytes # (Auto) 1.2 1.0-4.0 10^3/uL Monocytes # (Auto) 1.9 H 0.0-1.0 10^3/uL Eosinophils # (Auto) 0.1 0.0-0.3 10^3/uL Basophils # (Auto) 0.1 0.0-0.1 10^3/uL Immature Granulocyte # (Auto) 0.1 0.0-0.1 10^3/uL Sodium Level 139 135-145 MMOL/L Potassium Level 3.7 3.6-5.0 MMOL/L Chloride Level 104 98-107 MMOL/L Carbon Dioxide Level 20 L 21-32 MMOL/L Anion Gap 15 H 5-14 MMOL/L Blood Urea Nitrogen 38 H 7-18 MG/DL Creatinine 1.69 H 0.60-1.30 MG/DL Estimat Glomerular Filtration Rate 42 BUN/Creatinine Ratio 22 Glucose Level 115 H 70-105 MG/DL Calcium Level 9.4 8.5-10.1 MG/DL C-Reactive Protein High Sensitivity 10.69 H 0.00-0.50 MG/DL Urine Opiates Screen NEGATIVE NEGATIVE Urine Oxycodone Screen NEGATIVE NEGATIVE Urine Methadone Screen NEGATIVE NEGATIVE Urine Propoxyphene Screen NEGATIVE NEGATIVE Urine Barbiturates Screen NEGATIVE NEGATIVE Ur Tricyclic Antidepressants Screen POSITIVE H NEGATIVE Urine Phencyclidine Screen NEGATIVE NEGATIVE Urine Amphetamines Screen POSITIVE H NEGATIVE Urine Methamphetamines Screen POSITIVE H NEGATIVE Urine Benzodiazepines Screen NEGATIVE NEGATIVE Urine Cocaine Screen NEGATIVE NEGATIVE Urine Cannabinoids Screen POSITIVE H NEGATIVE (DARBY YBARRA MD) My Orders Orders - DARBY YBARRA MD Ed Iv/Invasive Line Start (01/26/23 12:48) Cbc With Automated Diff (01/26/23 12:48) Basic Metabolic Panel (01/26/23 12:48) Hs C Reactive Protein (01/26/23 12:48) Ns Iv 1000 Ml (Sodium Chloride 0.9%) (01/26/23 12:48) Drug Screen Stat (Urine) (01/26/23 13:05) Bladder Scan (01/26/23 13:12) Antacid Suspension (Mylanta Suspension (01/26/23 15:15) Lidocaine 2% Viscous 15 Ml (Xylocaine Vi (01/26/23 15:15) (DARBY YBARRA MD) Medications Given in ED (DARBY YBARRA MD) Vital Signs/I&O 01/26/23 01/26/23 11:23 15:24 Temp 36.9 Pulse 97 99 Resp 35 28 B/P (MAP) 113/86 (95) 118/92 Pulse Ox 99 99 O2 Delivery Room Air Room Air (DARBY YBARRA MD) Vital Signs/I&O Capillary Refill : Less Than 3 Seconds (MACY HECTOR) Blood Pressure Mean: 95 Progress Note : Time: 14:01 Progress Note Patient seen and examined by me, 72-year-old with a chief complaint of upper airway congestion, persistent cough, feeling "anxious". Patient cannot delineate a timeline of symptom onset. He is very agitated, constantly moving in the bed, pressured speech. No reported fevers, the patient has had some nausea and diarrhea. No reported fevers or chills. Chronic dental pain. Physical exam pertinent for significantly poor dentition. Dry oral mucosa. Clear lungs, regular heart rate. Afebrile. Benign abdomen. Agitated as stated. Evaluation today includes physical exam, CBC, CHEM 7, CRP, bladder scan and urine drug screen. Differential diagnosis based on physical exam and history includes panic attack/psychosis, intoxication, viral prodrome Labs reviewed, CBC shows mild increased white blood cell count chemistry is remarkable for slightly increased BUN and creatinine consistent with some degree of dehydration. CRP is elevated at 10. COVID test is positive, flu is negative. Patient has not provided a urine specimen at the time of this dictation. He is receiving 1 L of normal saline. Had half of a milligram of At addison by mouth. 1430 Patient did finally provide urine for UDS. + for methamphetamine, benzos (had a dose in ED) and THC. remained agitated, exam consistent with methamphetamine intox. I asked the patient if I could review all lab findings/results with both he and his ex and he consented. SHe indicated she was not suprised he was found to have meth on board as he had a history of use. He insisted he did not intentionally use, that someone myust have put it in his drink. I advised him of supportive care for his COVID positive status, I am unsure exactly when his symptoms started therefore, not a good candidate for Paxlovid. OTC meds recommended for his symptoms. Advised abstinence from meth. PAtient discharged in stable condition with his with return precautions provided. (DARBY YBARRA MD) Departure Impression Primary Impression: COVID-19 Additional Impression: Methamphetamine intoxication Disposition: HOME, SELF-CARE Condition: Stable/Unchanged Departure-Patient Inst. Decision time for Depature: 15:03 (DARBY YBARRA MD) Referrals: KIANA CHU DO (PCP) Primary Care Physician [facility] (Family) Primary Care Physician Patient Instructions: COVID-19 ED Add. Discharge Instructions: Drink plenty of fluids to stay well hydrated. Over the counter Robitussin as nneded for cough - follow packaging instructions. Ibuprofen and Tylenol as needed for discomfort. Follow up with your primary care doctor as needed. You will need to Quarantine for a total of 5 days from when your symptoms started and mask in public for 5 more days after that. Return to the Emergency Department for any new, concerning or emergent complaints. [facility] [address] [place] [address] Verification and Attestation of Medical Student E/M Service A medical student performed and documented this service in my presence. I reviewed and verified all information documented by the medical student and made modifications to such information, when appropriate. I personally performed the physical exam and medical decision making. Darby Ybarra, Jan 26, 2023,14:49 (DARBY YBARRA MD) Copy Copies To 1: KIANA CHU DAVID Mar 23, 2023 12:39 DARBY YBARRA MD Jan 26, 2023 14:13
[2023-01-26] MEDS ORDERED: NS IV 1000 ML 1,000 ML IV STA (12:48)
[2023-01-26 13:48] LABS: BASOPHILS # (AUTO) 0.1 10^3/uL (0.0-0.1); BASOPHILS % (AUTO) 1 % (0-10); EOSINOPHILS # (AUTO) 0.1 10^3/uL (0.0-0.3); EOSINOPHILS % (AUTO) 1 % (0-10); HEMATOCRIT 39 % (40-54); HEMOGLOBIN 13.9 g/dL (13.3-17.7); LYMPHOCYTES # (AUTO) 1.2 10^3/uL (1.0-4.0); LYMPHOCYTES % (AUTO) 10 % (12-44); MEAN CORPUSCULAR HEMOGLOBIN 32 pg (25-34); MEAN CORPUSCULAR HGB CONC 36 g/dL (32-36); MEAN CORPUSCULAR VOLUME 90 fL (80-99); MEAN PLATELET VOLUME 10.4 fL (9.0-12.2); MONOCYTES # (AUTO) 1.9 10^3/uL (0.0-1.0); MONOCYTES % (AUTO) 15 % (0-12); NEUTROPHILS # (AUTO) 9.5 10^3/uL (1.8-7.8); NEUTROPHILS % (AUTO) 74 % (42-75); PLATELET COUNT 292 10^3/uL (130-400); WHITE BLOOD COUNT 12.9 10^3/uL (4.3-11.0)
[2023-01-26 13:56] LABS: POTASSIUM 3.7 MMOL/L (3.6-5.0)
[2023-01-26 13:57] LABS: CALCIUM 9.4 MG/DL (8.5-10.1)
[2023-01-26 14:01] LABS: CREATININE SERUM 1.69 MG/DL (0.60-1.30)
[2023-01-26 14:48] LABS: AMPHETAMINE SCREEN, URINE POSITIVE (NEGATIVE); BARBITURATE SCREEN URINE NEGATIVE (NEGATIVE); BENZODIAZEPINES SCREEN URINE NEGATIVE (NEGATIVE); CANNABINOID SCREEN, URINE POSITIVE (NEGATIVE); COCAINE SCREEN URINE NEGATIVE (NEGATIVE); METHADONE STAT NEGATIVE (NEGATIVE); OPIATE SCREEN URINE NEGATIVE (NEGATIVE); OXYCODONE STAT NEGATIVE (NEGATIVE); PROPOXYPHENE STAT NEGATIVE (NEGATIVE); TRICYCLIC ANTIDEPRESSANTS SCRE POSITIVE (NEGATIVE)
[2023-01-26] MEDS ORDERED: ANTACID SUSP 30 ML UDC (MYLANTA) PO ONE (15:15)
[2023-01-26] MEDS ORDERED: LIDOCAINE 2% VISCOUS 15 ML UDC PO ONE (15:15)
[2023-01-26 15:24] VITALS: BP 118/92
== END 2023-01-26 15:28 | disposition home or self-care (01) ==
LOC: EDUNIT# 10:43 → ER 10:46
DX: U07.1 COVID-19 (principal); F15.129 Other stimulant abuse with intoxication, unspecified; D72.829 Elevated white blood cell count, unspecified; R79.82 Elevated C-reactive protein (CRP); R79.89 Other specified abnormal findings of blood chemistry; R05.9 Cough, unspecified
CPT/HCPCS: 36415; 80048; 80306; 85025; 86141; 87636